=== PATIENT | female | born 1965 | race Caucasian/White ===

== ENCOUNTER 2016-08-29 20:51 | Emergency (ER) | payer MEDICARE, MEDICAID ==
[2016-08-29] MEDS ORDERED: Rocephin 1000 MG INJ IM ONE (20:59)
[2016-08-29] MEDS ORDERED: Phenergan 25 MG INJ IM ONE (21:00)
[2016-08-29] MEDS ORDERED: TORAdol 30 mg Injection IM ONE (21:00)
--- NOTE | 2016-08-29 21:05 | ERPHSYRPT ---
- History of Present Illness Time Seen by Provider: 08/29/16 20:54 Source: patient Exam Limitations: no limitations Physician History: PT STARTED WITH DIARRHEA 4 DAYS AGO FOR 3 DAYS ABOUT 3X/DAY WITHOUT BLOOD. FOR THE PAST 3 DAYS PT HAS HAD A FRONTAL HEADACHE; FOR THE PAST 2 DAYS A SUBJECTIVE FEVER, NAUSEA AND VOMITING X3 WITHOUT BLOOD; TODAY A SORE THROAT. Allergies/Adverse Reactions: No Known Drug Allergies Allergy (Verified 08/29/16 20:58) Home Medications: Hydrocodone/Acetaminophen [Hydrocodon-Acetaminoph 7.5-325] 1 each PO Q8HPRN PRN 05/16/13 [History] Albuterol Sulfate [Albuterol Sulfate Hfa] 8.5 gm IH TID 08/29/16 [History] Alprazolam 1 mg [Xanax 1 mg] 1 mg PO DAILY 08/29/16 [History] Beclomethasone Dipropionate [Qvar] 7.3 gm IH DAILY 08/29/16 [History] Loratadine [Claritin] 10 mg PO DAILY 08/29/16 [History] Montelukast Sodium [Singulair] 10 mg PO DAILY 08/29/16 [History] Hx Tetanus, Diphtheria Vaccination/Date Given: Yes (UP TO DATE) Hx Influenza Vaccination/Date Given: Yes (2012) Hx Pneumococcal Vaccination/Date Given: Yes (2012) - Review of Systems Constitutional: Fever Ears, Nose, & Throat: Throat Pain Cardiac: No Chest Pain Abdominal/Gastrointestinal: Nausea, Vomiting, Diarrhea Neurological: Headache All Other Systems: Reviewed and Negative - Past Medical History Pertinent Past Medical History: Yes Neurological History: No Pertinent History ENT History: No Pertinent History Cardiac History: Hypertension Respiratory History: Asthma, Bronchitis, COPD, Pneumonia Endocrine Medical History: No Pertinent History Musculoskeletal History: No Pertinent History GI Medical History: No Pertinent History History: No Pertinent History Psycho-Social History: Anxiety, Depression Female Reproductive Disorders: No Pertinent History Other Medical History: RT shoulder Bursitis. COPD. Smoker - Past Surgical History Past Surgical History: Yes Neuro Surgical History: No Pertinent History Cardiac: No Pertinent History Respiratory: No Pertinent History Gastrointestinal: No Pertinent History Genitourinary: No Pertinent History Musculoskeletal: No Pertinent History Female Surgical History: Tubal Ligation Other Surgical History: G-TUBE. CHEST TUBE. CARPAL TUNNEL - Social History Smoking Status: Former smoker How long have you smoked: 30 years Exposure to second hand smoke: No Alcohol Use: Socially Drug Use: none Patient Lives Alone: No Significant Family History: no pertinent family hx - Female History Hx Now: No - Physical Exam General Appearance: alert Eye Exam: PERRL/EOMI Ears, Nose, Throat Exam: TMs normal, moist mucous membranes, pharyngeal erythema , other (NASAL TURBINATES ERYTHEMATOUS AND MILDLY EDEMATOUS) Neck Exam: normal inspection Respiratory Exam: airway intact Cardiovascular Exam: normal heart sounds Gastrointestinal/Abdomen Exam: soft, normal bowel sounds Back Exam: normal range of motion Extremity Exam: No pedal edema Neurologic Exam: alert, cooperative Skin Exam: warm, dry - Course Nursing assessment & vital signs reviewed: Yes - Departure Time of Disposition: 21:12 Departure Disposition: Home Clinical Impression: PHARYNGITIS, SINUSITIS Condition: Fair Critical Care Time: No Instructions: Diarrhea and Traveler's Diarrhea -- Adult, Vomiting -- Adult, Sinusitis, Pharyngitis/Tonsillopharyngitis -- Adult Additional Instructions: FOLLOW UP WITH PRIVATE DOCTOR TOMORROW. Prescriptions: Promethazine HCl 25 mg [Phenergan 25 mg] 25 mg PO Q4H PRN PRN #14 tablet PRN Reason: Nausea/Vomiting Azithromycin 250 mg [Zithromax 250 MG TABLET] 250 mg PO ZPACK #6 tablet Cetirizine HCl [Zyrtec] 10 mg PO DAILY #10 tablet
[2016-08-29] MEDS ORDERED: Rocephin 1000 MG INJ ONE (21:06)
[2016-08-29] MEDS ORDERED: TORAdol 30 mg Injection ONE (21:06)
[2016-08-29] MEDS ORDERED: XYLOCAINE 1% HCL 20 ML MDV ONE (21:06)
[2016-08-29] MEDS ORDERED: Phenergan 25 MG INJ ONE (21:06)
[2016-08-29 21:37] VITALS: BP 122/70; PULSE 89; O2SAT 99
== END 2016-08-29 21:37 | disposition home or self-care (01) ==
LOC: ED 20:51
DX: J02.9 Acute pharyngitis, unspecified (principal); J32.9 Chronic sinusitis, unspecified; R19.7 Diarrhea, unspecified; R51 Headache; R50.9 Fever, unspecified; R11.2 Nausea with vomiting, unspecified; Z79.899 Other long term (current) drug therapy
CPT/HCPCS: 96372; 96375; 99284; J0696; J1885; J2550

== ENCOUNTER 2017-05-25 06:09 | Day surgery (SDC) | payer MEDICARE ==
[2017-05-25] MEDS ORDERED: VERSED 5 MG/5 ML IV ONE (06:10)
[2017-05-25] MEDS ORDERED: DEMEROL 50 MG IV ONE ×2 (06:10)
[2017-05-25] MEDS ORDERED: XYLOCAINE 1% HCL 20 ML MDV ONE ×2 (06:37→08:36)
[2017-05-25] MEDS ORDERED: Sodium Chloride 0.9% 1000 ML 1,000 ML ONE (06:38)
[2017-05-25] MEDS ORDERED: Sodium Chloride 0.9% 1000 ML 1,000 ML IV SCH (07:15)
[2017-05-25] MEDS ORDERED: CEFAZOLIN 2 GM-D5W BAG** 2 GM/50 ML ML IV SCH (08:00)
[2017-05-25] MEDS ORDERED: CEFAZOLIN 2 GM-D5W BAG** 50 ML IV SCH (08:00)
[2017-05-25 10:37] VITALS: O2SAT 100
--- NOTE | 2017-05-25 10:41 | XRAY ---
Indication: Port placement. Intraoperative fluoroscopy was provided for 3 seconds. A single digital spot image submitted for interpretation demonstrates a left-sided Port-A-Cath with the tip projecting over the proximal SVC. Correlate with intraoperative findings/report.
[2017-05-25 10:51] VITALS: BP 149/103; PULSE 92
--- NOTE | 2017-05-25 12:27 | OP ---
SURGERY DATE/TIME: 05/25/2017 0840 PREOPERATIVE DIAGNOSIS: Inadequate access for chemotherapy. POSTOPERATIVE DIAGNOSIS: Inadequate access for chemotherapy. PROCEDURE: Tunnel Port-A-Cath fluoroscopic C-arm guidance. SURGEON: Eleazar Barrett M.D. ANESTHESIA: IV sedation 20 minutes monitored. COMPLICATIONS: None. CONDITION: Stable. INDICATION: A patient requiring access. DESCRIPTION OF PROCEDURE: Routine prep and drape. IV sedation was titrated. Oximetry was kept over 90%. Comfort level was excellent. 1% lidocaine was advanced through the field. Venipuncture obtained. Guide wire placed. Catheter placed and secured at 21 cm. Good aspiration of low pressure venous blood. Flushed with heparinized saline. Secured with 3-0 Prolene, 3-0 Vicryl, 4-0 Vicryl and Steri-Strips. Fluoroscopic image showed tip in superior vena cava - atrial junction. No pneumothorax and in good position.
== END 2017-05-25 11:05 | disposition home or self-care (01) ==
LOC: SDC 06:09
PROVIDERS: ATTEND Surgery
PROC: 05H633Z Insertion of Infusion Device into Left Subclavian Vein, Percutaneous Approach (ICD-10-PCS; principal; 2017-05-25)
DX: Z45.2 Encounter for adjustment and management of vascular access device (principal)
CPT/HCPCS: 77001; 84703; C1788; J0690; J1642; J2175; J2250

== ENCOUNTER 2017-10-31 21:20 | Emergency (ER) | payer MEDICARE ==
[2017-10-31 21:57] VITALS: BP 151/96
--- NOTE | 2017-10-31 21:57 | ERPHSYRPT ---
- History of Present Illness Time Seen by Provider: 10/31/17 21:48 Source: patient Exam Limitations: no limitations Physician History: Patient is a 52-year-old female with her boyfriend complaining that she's had a cough and fever since yesterday. She also has shortness of breath. She is lightheaded when she moves around. She has chills. She believes she may have pneumonia again. She denies nausea or vomiting. She has an appointment with her primary medical doctor tomorrow but did not think she could last that long. Last June she had a port placed for likely chemotherapy for possible chest cancer. She had been worked up including chest CTs and a PET scan. She decided not to have a biopsy. She also states that she has a "tumor" in her right arm. Her past medical history is significant for COPD, pneumonia, and depression. She continues to smoke like a "freight train". Timing/Duration: yesterday Cough Quality/Degree: moderate, productive cough Possible Cause: occasional episodes, smoke exposure Modifying Factors: Improves With: coughing Associated Symptoms: fever, chills, cough, lightheadedness, shortness of breath Allergies/Adverse Reactions: No Known Drug Allergies Allergy (Verified 05/25/17 06:42) Home Medications: Albuterol Sulfate [Albuterol Sulfate Hfa] 8.5 gm IH TID 08/29/16 [History] Alprazolam 1 mg [Xanax 1 mg] 1 mg PO DAILY 08/29/16 [History] Loratadine [Claritin] 10 mg PO DAILY 08/29/16 [History] Montelukast Sodium [Singulair] 10 mg PO DAILY 08/29/16 [History] Albuterol Sulfate [Ventolin Hfa] 8 gm IH UD 05/16/17 [History] Oxycodone HCl/Acetaminophen [Percocet 10-325 mg Tablet] 1 each PO Q4HPRN PRN 05/21 [History] Theophylline Anhydrous [Theophylline] 0 mg PO DAILY 05/16/17 [History] Hx Tetanus, Diphtheria Vaccination/Date Given: Yes (UP TO DATE) Hx Influenza Vaccination/Date Given: Yes (2012) Hx Pneumococcal Vaccination/Date Given: Yes (2012) - Review of Systems Constitutional: Fever, Chills Eyes: No Symptoms Ears, Nose, & Throat: No Symptoms Respiratory: Cough, Dyspnea, Wheezing Cardiac: No Chest Pain, No Edema, No Syncope Abdominal/Gastrointestinal: No Abdominal Pain, No Nausea, No Vomiting, No Diarrhea Genitourinary Symptoms: No Dysuria Musculoskeletal: No Back Pain, No Neck Pain Skin: No Rash Neurological: No Dizziness, No Focal Weakness, No Sensory Changes Psychological: Depression Endocrine: No Symptoms Hematologic/Lymphatic: No Symptoms Immunological/Allergic: No Symptoms All Other Systems: Reviewed and Negative - Past Medical History Pertinent Past Medical History: Yes Neurological History: No Pertinent History ENT History: No Pertinent History Cardiac History: Hypertension Respiratory History: Asthma, Bronchitis, COPD, Emphysema, Pneumonia Endocrine Medical History: No Pertinent History Musculoskeletal History: No Pertinent History, Other GI Medical History: No Pertinent History History: No Pertinent History Psycho-Social History: Anxiety, Depression Female Reproductive Disorders: No Pertinent History Other Medical History: RT shoulder Bursitis- torn rotator cuff and bone tumor. COPD. Smoker. bone tumor - Past Surgical History Past Surgical History: Yes Neuro Surgical History: No Pertinent History Cardiac: No Pertinent History Respiratory: No Pertinent History Gastrointestinal: No Pertinent History Genitourinary: No Pertinent History Musculoskeletal: No Pertinent History Female Surgical History: Tubal Ligation Other Surgical History: G-TUBE. CHEST TUBE x2. CARPAL TUNNEL - Social History Smoking Status: Current every day smoker How long have you smoked: 30 years Exposure to second hand smoke: No Alcohol Use: Socially Drug Use: none Patient Lives Alone: No Significant Family History: no pertinent family hx - Nursing Vital Signs Nursing Vital Signs: Initial Vital Signs Temperature 100.3 F 10/31/17 21:44 Pulse Rate 96 H 10/31/17 21:44 Respiratory Rate 18 10/31/17 21:44 Blood Pressure 151/96 10/31/17 21:44 O2 Sat by Pulse Oximetry 95 10/31/17 21:44 Pain Scale Pain Intensity 5 - Physical Exam General Appearance: mild distress Eye Exam: PERRL/EOMI, eyes nml inspection Ears, Nose, Throat Exam: normal ENT inspection, TMs normal, pharynx normal, moist mucous membranes Neck Exam: normal inspection, non-tender, supple, full range of motion Respiratory Exam: prolonged expirations, rhonchi, wheezing Cardiovascular Exam: regular rate/rhythm, normal heart sounds Gastrointestinal/Abdomen Exam: soft, No tenderness Pelvic Exam: not done Rectal Exam: not done Back Exam: normal inspection, No CVA tenderness, No vertebral tenderness Extremity Exam: normal inspection, normal range of motion Neurologic Exam: alert, oriented x 3, cooperative, normal mood/affect, sensation nml, No motor deficits Skin Exam: normal color, warm, dry, No rash Lymphatic Exam: No adenopathy SpO2 Interpretation: normal - Course EKG Interpreted by Me: RATE, Sinus Rhythm, NORMAL AXIS, NORMAL INTERVALS, NORMAL QRS, NORMAL ST-T - Radiology Exams Chest X-ray Interpretation: Reviewed by me, Teleradiologist Report, Other (3.7 X 1.9 cm mass in [place] with multiple small densities in both lungs consistent with probable metastatic disease per Dr Madden.) Ordered Tests: Active Orders 24 hr Category Date Time Status Publications Inspector STAT Care 10/31/17 22:02 Active IV Insertion STAT Care 10/31/17 22:02 Active Oxygen-ED Only NASAL CANNULA 2 lpm Care 10/31/17 22:02 Active CHEST 2 VIEWS (PA AND LAT) Stat Exams 10/31/17 22:02 Taken BLOOD CULTURE Stat Lab 10/31/17 23:30 Received CBC W DIFF Stat Lab 10/31/17 23:00 Completed CMP Stat Lab 10/31/17 23:30 Completed Lactic Acid Stat Lab 10/31/17 23:29 Completed Manual Differential NC Stat Lab 10/31/17 23:00 Completed NT PRO BNP Stat Lab 10/31/17 23:30 Completed TROPONIN Q3H Lab 10/31/17 23:30 Completed TROPONIN Q3H Lab 11/01/17 01:15 Ordered TROPONIN Q3H Lab 11/01/17 04:15 Ordered TROPONIN Q3H Lab 11/01/17 07:15 Ordered TROPONIN Q3H Lab 11/01/17 10:15 Ordered Respiratory Nebulizer STAT RT 10/31/17 22:03 Completed Medication Summary Discontinued Medications Generic Name Dose Route Start Last Admin Trade Name Freq PRN Reason Stop Dose Admin Acetaminophen 1,000 mg 11/01/17 00:39 Tylenol Extra Strength 500 Mg PO 11/01/17 00:40 STAT STA Acetaminophen Confirm 11/01/17 00:55 Tylenol Extra Strength 500 Mg Administered 11/01/17 00:56 Dose 1,000 mg .ROUTE .STK-MED ONE Al Hydrox/Mg Hydrox/Simethicone 30 ml 11/01/17 00:14 11/01/17 00:27 Maalox Es 30 Ml Unit Dose PO 11/01/17 00:15 30 ml STAT ONE Administration Al Hydrox/Mg Hydrox/Simethicone Confirm 11/01/17 00:17 Maalox Es 30 Ml Unit Dose Administered 11/01/17 00:18 Dose 30 ml .ROUTE .STK-MED ONE Albuterol/Ipratropium 3 ml 10/31/17 22:02 10/31/17 22:15 Duoneb 0.5-3 Mg/3 Ml Neb IH 10/31/17 22:03 3 ml STAT ONE Administration Albuterol/Ipratropium Confirm 10/31/17 22:11 Duoneb 0.5-3 Mg/3 Ml Neb Administered 10/31/17 22:12 Dose 3 ml IH .STK-MED ONE Ceftriaxone Sodium/Dextrose 1 g in 50 mls @ 100 mls/hr 11/01/17 00:39 Rocephin 1 Gm-D5w 50 Ml Bag IV 11/01/17 01:08 STAT STA Ceftriaxone Sodium/Dextrose Confirm 11/01/17 00:56 Rocephin 1 Gm-D5w 50 Ml Bag Administered 11/01/17 00:57 Dose 1 g in 50 mls @ ud IV .STK-MED ONE Methylprednisolone Sodium Succinate 125 mg 10/31/17 22:02 10/31/17 23:12 Solu-Medrol 125 Mg IV 10/31/17 22:03 125 mg STAT ONE Administration Methylprednisolone Sodium Succinate Confirm 10/31/17 22:09 Solu-Medrol 125 Mg Administered 10/31/17 22:10 Dose 125 mg .ROUTE .STK-MED ONE Lab/Rad Data: Laboratory Result Diagrams 10/31/17 23:00 10/31/17 23:30 Laboratory Results 10/31/17 10/31/17 10/31/17 Range/Units 23:30 23:30 23:30 WBC (4.0-10.5) K/mm3 RBC (4.1-5.4) M/mm3 Hgb (12.0-16.0) gm/dl Hct (35-47) % MCV (78-100) fl MCH (26-32) pg MCHC (32-36) g/dl RDW (11.5-14.0) % Plt Count (150-450) K/mm3 MPV (6-9.5) fl Absolute Granulocytes (1.4-6.9) Segmented Neutrophils (36.0-66.0) % Band Neutrophils (0.0-2.0) % Lymphocytes (Manual) (24-44) % Monocytes (Manual) (0.0-12.0) % Basophils (Manual) (0.0-1.0) % Platelet Estimate (NORMAL) RBC Morphology Sodium 132 L (137-145) mmol/L Potassium 4.0 (3.5-5.1) mmol/L Chloride 101 (98-107) mmol/L Carbon Dioxide 25 (22-30) mmol/L Anion Gap 9.6 (5-15) MEQ/L BUN 11 (7-17) mg/dL Creatinine 0.86 (0.52-1.04) mg/dL Estimated GFR > 60.0 ML/MIN Glucose 101 (74-106) mg/dL Lactic Acid (0.4-2.0) Calcium 8.5 (8.4-10.2) mg/dL Total Bilirubin 0.30 (0.2-1.3) mg/dL AST 35 (14-36) U/L ALT 17 (0-35) U/L Alkaline Phosphatase 97 (38-126) U/L Troponin I 0.038 H* (0.000-0.034) ng/mL NT-Pro-B Natriuret Pep 1510 H (0-900) pg/mL Serum Total Protein 6.3 (6.3-8.2) g/dL Albumin 3.5 (3.5-5.0) g/dL Influenza Type A Ag NEGATIVE (NEGATIVE) Influenza Type B Ag NEGATIVE (NEGATIVE) RSV (PCR) NEGATIVE (Negative) 10/31/17 10/31/17 Range/Units 23:29 23:00 WBC 2.3 L (4.0-10.5) K/mm3 RBC 4.29 (4.1-5.4) M/mm3 Hgb 13.0 (12.0-16.0) gm/dl Hct 38.2 (35-47) % MCV 89.0 (78-100) fl MCH 30.3 (26-32) pg MCHC 34.0 (32-36) g/dl RDW 13.7 (11.5-14.0) % Plt Count 91 L (150-450) K/mm3 MPV 10.4 H (6-9.5) fl Absolute Granulocytes 1.51 (1.4-6.9) Segmented Neutrophils 62 (36.0-66.0) % Band Neutrophils 10 H (0.0-2.0) % Lymphocytes (Manual) 22 L (24-44) % Monocytes (Manual) 4 (0.0-12.0) % Basophils (Manual) 2 H (0.0-1.0) % Platelet Estimate DECREASED (NORMAL) RBC Morphology NORMAL Sodium (137-145) mmol/L Potassium (3.5-5.1) mmol/L Chloride (98-107) mmol/L Carbon Dioxide (22-30) mmol/L Anion Gap (5-15) MEQ/L BUN (7-17) mg/dL Creatinine (0.52-1.04) mg/dL Estimated GFR ML/MIN Glucose (74-106) mg/dL Lactic Acid 1.0 (0.4-2.0) Calcium (8.4-10.2) mg/dL Total Bilirubin (0.2-1.3) mg/dL AST (14-36) U/L ALT (0-35) U/L Alkaline Phosphatase (38-126) U/L Troponin I (0.000-0.034) ng/mL NT-Pro-B Natriuret Pep (0-900) pg/mL Serum Total Protein (6.3-8.2) g/dL Albumin (3.5-5.0) g/dL Influenza Type A Ag (NEGATIVE) Influenza Type B Ag (NEGATIVE) RSV (PCR) (Negative) - Progress Progress: unchanged Air Movement: fair Progress Note: 11/01/17 01:10 I discussed the patient with Dr. Lynn at [facility] who did accept the patient. However, the patient has now changed her mind and will not be transferred. She does not want to know if she has lung cancer. She states she wants to go home and not worry about things. I very clearly stated why she needed to go to [facility] and find out the diagnosis. I am unable to provide the appropriate care at [place]. The patient will be leaving [place]. Blood Culture(s) Obtained: Yes Antibiotics given: No Counseled pt/family regarding: lab results, diagnosis, need for follow-up, rad results - Departure Time of Disposition: 00:45 Departure Disposition: AMA Clinical Impression: Neutropenic fever, Lung mass, Metastasis Condition: Stable Critical Care Time: No Referrals: SUSANA CUEVAS [Primary Care Provider] -
[2017-10-31] MEDS ORDERED: DUONEB 0.5-3 MG/3 ml Neb IH ONE ×2 (22:02→22:11)
[2017-10-31] MEDS ORDERED: solu-MEDROL 125 MG IV ONE (22:02)
[2017-10-31] MEDS ORDERED: solu-MEDROL 125 MG ONE (22:09)
[2017-10-31 22:23] VITALS: PULSE 106; O2SAT 97
[2017-10-31 23:16] LABS: Granulocyte Absolute (ANC) 1.51 (1.4-6.9); Hematocrit 38.2 % (35-47); Mean Corpuscular Hemoglobin 30.3 pg (26-32); Mean Platelet Volume 10.4 fl (6-9.5); Platelet Count 91 K/mm3 (150-450); Red Blood Count 4.29 M/mm3 (4.1-5.4); Red Cell Distribution Width 13.7 % (11.5-14.0); White Blood Count 2.3 K/mm3 (4.0-10.5)
[2017-10-31 23:42] LABS: ALBUMIN 3.5 g/dL (3.5-5.0); ALKALINE PHOSPHATASE 97 U/L (38-126); ANION GAP 9.6 MEQ/L (5-15); BLOOD UREA NITROGEN 11 mg/dL (7-17); CHLORIDE 101 mmol/L (98-107); Calcium 8.5 mg/dL (8.4-10.2); Carbon Dioxide 25 mmol/L (22-30); Creatinine 1 0.86 mg/dL (0.52-1.04); Glucose 101 mg/dL (74-106); SGOT/AST 35 U/L (14-36); SGPT/ALT 17 U/L (0-35); SODIUM 132 mmol/L (137-145); Total Protein 6.3 g/dL (6.3-8.2)
[2017-10-31 23:51] LABS: NT PRO BNP 1510 pg/mL (0-900)
[2017-11-01 00:07] LABS: INFLUENZA A NEGATIVE (NEGATIVE); INFLUENZA B NEGATIVE (NEGATIVE); RESPIRATORY SYNCTIAL VIRUS NEGATIVE (Negative)
[2017-11-01] MEDS ORDERED: MAALOX ES 30 ML UNIT DOSE PO ONE (00:14)
[2017-11-01] MEDS ORDERED: MAALOX ES 30 ML UNIT DOSE ONE (00:17)
[2017-11-01] MEDS ORDERED: TYLENOL EXTRA STRENGTH 500 MG PO STA (00:39)
[2017-11-01] MEDS ORDERED: ROCEPHIN 1 Gm-D5w 50 ml Bag** 1 G/50 ML IVPB IV STA (00:39)
[2017-11-01] MEDS ORDERED: TYLENOL EXTRA STRENGTH 500 MG ONE (00:55)
[2017-11-01] MEDS ORDERED: ROCEPHIN 1 Gm-D5w 50 ml Bag** 0 G/0 ML IVPB IV ONE (00:56)
[2017-11-01 00:57] LABS: BAND 10 % (0.0-2.0); Basophil 2 % (0.0-1.0); Lymphocytes 22 % (24-44); Monocyte 4 % (0.0-12.0); Neutrophils 62 % (36.0-66.0); Platelet Estimate DECREASED (NORMAL); Total Cells Counted 100
--- NOTE | 2017-11-01 10:17 | XRAY ---
Exam: Two-view chest from 10/31/2017. Comparison: CT of the chest without IV contrast from 04/11/2017 and two-view chest from 12/04/2013. Indication: 52-year-old female with cancer of the lung, COPD/emphysema, cough and dyspnea/shortness of breath with wheezing, fever Findings: Upright PA and lateral chest films are submitted for evaluation. A left-sided deondre catheter is seen with the tip extending to the mid SVC pointing inferiorly, posteriorly, and toward the right. The heart size is normal. I again see a mass within the peripheral left lung apex measuring about 4.1 cm x 2.8 cm in cross section. This is similar to the prior CT of the chest 04/11/2017. One should consider a lung malignancy such as squamous cell carcinoma, as well as abscess, fungal disease, or TB. Evidently, the diagnosis of malignancy has already been established. Within the right lung apex, I again see a small density projected behind the clavicle which probably represents a small cavitary lesion or bulla. This was noted to contain a small soft tissue density within it on axial image #12 study from 04/11/2017. I again see some scattered bilateral ill-defined lung densities. Is not clear to me whether this represents areas of focal scarring or metastatic lesions. Correlation with a follow-up CT of the chest may be helpful to compare with that from 04/11/2017. There is evidence of COPD/emphysema. Minimal curvilinear scarring/fibrosis is seen lateral to the right infrahilar projection. I believe there is a small calcified granuloma at the left lung base which is also seen on axial image #[address] study of 04/11/2017. The bones appear grossly intact without obvious fracture or bone destructive process. Findings: 1. Persistence of left apical soft tissue mass which presumably has been diagnosed as lung cancer in the past. I also note a small density projected behind the right clavicle within the right lung apex which was demonstrated represent a small cavity with a 6.3 mm round radiopacity within it on the prior CT from 04/11/2017. 2. There is some other ill-defined patchy densities within each lung which may reflect areas of focal scarring, although subtle metastases cannot be excluded. Consider follow-up with repeat CT of the chest. 3. COPD/emphysema is again seen. 4. Left-sided deondre catheter is now seen in place with the tip in the mid SVC.
== END 2017-11-01 01:28 | disposition left against medical advice (07) ==
LOC: ED 21:20
DX: D70.9 Neutropenia, unspecified (principal); R50.81 Fever presenting with conditions classified elsewhere; R91.8 Other nonspecific abnormal finding of lung field; C79.9 Secondary malignant neoplasm of unspecified site; Z79.899 Other long term (current) drug therapy; F17.210 Nicotine dependence, cigarettes, uncomplicated
CPT/HCPCS: 36000; 36415; 71046; 80053; 83605; 83880; 84484; 85025; 87040; 87077; 87186; 87631; 93005; 93041; 94640; 96374; 99284; J0696; J1642; J2930; A9270-GY

== ENCOUNTER 2019-03-23 02:03 | Emergency (ER) | payer MEDICARE ==
--- NOTE | 2019-03-23 02:47 | ERPHSYRPT ---
- History of Present Illness Time Seen by Provider: 03/23/19 02:47 Source: patient Exam Limitations: no limitations Patient Subjective Stated Complaint: pt c/o fever today, rt ankle swelling due to bite and hernia popping out and unable to get it back in. Triage Nursing Assessment: pt brought to er rm 8 via wheelchair, pt alert and oriented x3, cooperative. Pt c/o fever x 24 hours, afebrile at this time. Rt foot edematous, puffy, non-pitting. Ice pack applied. Pt has hernia that pops out and pt unable to get back in at this time. Lungs exp wheezes throughout. Heart tones reg but tachy, abd soft with active bs x4 quad, non-tender. Physician History: 52-year-old female with significant past medical history of COPD came to the emergency room with multiple complaints which include redness and pain and swelling on her both hands and right leg as well as complaining of swelling around the periumbilical area, which she states that she has an umbilical hernia and which cannot be fixed because of her poor lung conditions. Patient states that she might got bit by something while she was mushroom hunting. She was complaining of fever, but in the emergency room. She is afebrile. She denies any other symptoms. Timing/Duration: today Associated Symptoms: abdominal pain International travel in last 2 weeks: No Allergies/Adverse Reactions: No Known Drug Allergies Allergy (Verified 07/13/18 15:10) Home Medications: Albuterol Sulfate [Albuterol Sulfate Hfa] 8.5 gm IH TID 08/29/16 [History] Alprazolam 1 mg [Xanax 1 mg] 1 mg PO DAILY 08/29/16 [History] Montelukast Sodium [Singulair] 10 mg PO DAILY 08/29/16 [History] Albuterol Sulfate [Ventolin Hfa] 8 gm IH UD 05/16/17 [History] Oxycodone HCl/Acetaminophen [Percocet 10-325 mg Tablet] 1 each PO Q4HPRN PRN 05/21 [History] Theophylline Anhydrous [Theophylline] 400 mg PO DAILY 05/16/17 [History] Omeprazole Magnesium [Prilosec Otc] 40 mg PO BID 03/23/19 [History] Hx Tetanus, Diphtheria Vaccination/Date Given: Yes Hx Influenza Vaccination/Date Given: No Hx Pneumococcal Vaccination/Date Given: Yes Immunizations Up to Date: Yes - Review of Systems Constitutional: Fever Eyes: No Symptoms Ears, Nose, & Throat: No Symptoms Respiratory: No Symptoms Cardiac: No Symptoms Abdominal/Gastrointestinal: Abdominal Pain Genitourinary Symptoms: No Symptoms Musculoskeletal: Joint Redness Skin: Cellulitis Neurological: No Symptoms Psychological: No Symptoms - Past Medical History Pertinent Past Medical History: Yes Neurological History: No Pertinent History ENT History: No Pertinent History Cardiac History: Hypertension Respiratory History: Asthma, Bronchitis, COPD, Emphysema, Pneumonia Endocrine Medical History: No Pertinent History Musculoskeletal History: No Pertinent History, Other GI Medical History: GERD History: No Pertinent History Psycho-Social History: Depression Female Reproductive Disorders: No Pertinent History Other Medical History: RT shoulder Bursitis- torn rotator cuff and bone tumor. COPD. Smoker. bone tumor - Past Surgical History Past Surgical History: Yes Neuro Surgical History: No Pertinent History Cardiac: No Pertinent History Respiratory: No Pertinent History Gastrointestinal: No Pertinent History Genitourinary: No Pertinent History Musculoskeletal: No Pertinent History Female Surgical History: Tubal Ligation Other Surgical History: G-TUBE. CHEST TUBE x2. CARPAL TUNNEL. cvl port poor iv access. tracheostomy - Social History Smoking Status: Current every day smoker How long have you smoked: 35 Exposure to second hand smoke: Yes Alcohol Use: Socially Drug Use: none Patient Lives Alone: No Significant Family History: no pertinent family hx - Female History Hx Now: No - Nursing Vital Signs Nursing Vital Signs: Initial Vital Signs Temperature 98.7 F 03/23/19 02:29 Pulse Rate 125 H 03/23/19 02:29 Respiratory Rate 32 H 03/23/19 02:29 Blood Pressure 157/117 03/23/19 02:29 O2 Sat by Pulse Oximetry 100 03/23/19 02:29 Pain Scale Pain Intensity 10 - Physical Exam General Appearance: no apparent distress Eye Exam: PERRL/EOMI, eyes nml inspection, pale conjunctivae ENT Exam: normal ENT inspection Neck Exam: normal inspection Respiratory Exam: decreased air movement Cardiovascular/Chest Exam: normal heart sounds Gastrointestinal/Abdominal Exam: soft, tenderness (around periumbilical area) Pelvic Exam: not done Rectal Exam: deferred Extremity Exam: no calf tenderness, inflammation, pedal edema (right foot), swelling, No calf tenderness Neurologic Exam: alert, oriented x 3 SpO2: 100 - Course Nursing assessment & vital signs reviewed: Yes Ordered Tests: Active Orders 24 hr Category Date Time Status BLOOD CULTURE Stat Lab 03/23/19 03:41 Ordered CBC W DIFF Stat Lab 03/23/19 03:41 Completed CMP Stat Lab 03/23/19 03:41 Completed Lactic Acid Stat Lab 03/23/19 03:20 Results UA W/RFX UR CULTURE Stat Lab 03/23/19 03:50 Completed Medication Summary Generic Name Dose Route Start Last Admin Trade Name Freq PRN Reason Stop Dose Admin Ceftriaxone Sodium/Dextrose 1 g in 50 mls @ 100 mls/hr 03/23/19 04:07 Rocephin 1 Gm-D5w 50 Ml Bag IV 03/23/19 04:36 STAT STA Discontinued Medications Generic Name Dose Route Start Last Admin Trade Name Freq PRN Reason Stop Dose Admin Sodium Chloride 1,000 mls @ 999 mls/hr 03/23/19 02:54 Sodium Chloride 0.9% 1000 Ml IV 03/23/19 03:54 .Q1H1M STA Sodium Chloride Confirm 03/23/19 04:02 Sodium Chloride 0.9% 1000 Ml Administered 03/23/19 04:03 Dose 1,000 mls @ ud .ROUTE .STK-MED ONE Lab/Rad Data: Laboratory Result Diagrams 03/23/19 03:41 03/23/19 03:41 Laboratory Results 03/23/19 03/23/19 03/23/19 Range/Units 03:50 03:41 03:41 WBC 23.3 H (4.0-10.5) K/mm3 RBC 4.61 (4.1-5.4) M/mm3 Hgb 13.7 (12.0-16.0) gm/dl Hct 42.6 (35-47) % MCV 92.4 (78-100) fl MCH 29.7 (26-32) pg MCHC 32.2 (32-36) g/dl RDW 15.3 H (11.5-14.0) % Plt Count 324 (150-450) K/mm3 MPV 10.6 H (6-9.5) fl Gran % 75.8 H (36.0-66.0) % Eos # (Auto) 0.19 (0-0.5) Absolute Lymphs (auto) 3.79 (1.0-4.6) Absolute Monos (auto) 1.60 H (0.0-1.3) Lymphocytes % 16.3 L (24.0-44.0) % Monocytes % 6.9 (0.0-12.0) % Eosinophils % 0.8 (0.00-5.0) % Basophils % 0.2 (0.0-0.4) % Absolute Granulocytes 17.69 H (1.4-6.9) Basophils # 0.04 (0-0.4) Sodium 135 L (137-145) mmol/L Potassium 4.2 (3.5-5.1) mmol/L Chloride 101 (98-107) mmol/L Carbon Dioxide 26 (22-30) mmol/L Anion Gap 12.5 (5-15) MEQ/L BUN 15 (7-17) mg/dL Creatinine 1.01 (0.52-1.04) mg/dL Estimated GFR > 60.0 ML/MIN Glucose 109 H (74-106) mg/dL Lactic Acid (0.4-2.0) Calcium 8.7 (8.4-10.2) mg/dL Total Bilirubin 0.20 (0.2-1.3) mg/dL AST 36 (14-36) U/L ALT 74 H (0-35) U/L Alkaline Phosphatase 82 (38-126) U/L Serum Total Protein 5.8 L (6.3-8.2) g/dL Albumin 3.3 L (3.5-5.0) g/dL Urine Color COLORLESS (YELLOW) Urine Appearance CLEAR (CLEAR) Urine pH 9.0 (5-6) Ur Specific [place] 1.000 (1.005-1.025) Urine Protein NEGATIVE (Negative) Urine Ketones NEGATIVE (NEGATIVE) Urine Blood NEGATIVE (0-5) Bin/ul Urine Nitrite NEGATIVE (NEGATIVE) Urine Bilirubin NEGATIVE (NEGATIVE) Urine Urobilinogen NEGATIVE (0-1) mg/dL Ur Leukocyte Esterase NEGATIVE (NEGATIVE) Urine WBC (Auto) NONE SEEN (0-5) /HPF Urine RBC (Auto) NONE SEEN (0-2) /HPF U Epithel Cells (Auto) NONE (FEW) /HPF Urine Bacteria (Auto) NONE SEEN (NEGATIVE) /HPF Urine Culture Reflexed NO (NO) Urine Glucose NEGATIVE (NEGATIVE) mg/dL 03/23/19 Range/Units 03:20 WBC (4.0-10.5) K/mm3 RBC (4.1-5.4) M/mm3 Hgb (12.0-16.0) gm/dl Hct (35-47) % MCV (78-100) fl MCH (26-32) pg MCHC (32-36) g/dl RDW (11.5-14.0) % Plt Count (150-450) K/mm3 MPV (6-9.5) fl Gran % (36.0-66.0) % Eos # (Auto) (0-0.5) Absolute Lymphs (auto) (1.0-4.6) Absolute Monos (auto) (0.0-1.3) Lymphocytes % (24.0-44.0) % Monocytes % (0.0-12.0) % Eosinophils % (0.00-5.0) % Basophils % (0.0-0.4) % Absolute Granulocytes (1.4-6.9) Basophils # (0-0.4) Sodium (137-145) mmol/L Potassium (3.5-5.1) mmol/L Chloride (98-107) mmol/L Carbon Dioxide (22-30) mmol/L Anion Gap (5-15) MEQ/L BUN (7-17) mg/dL Creatinine (0.52-1.04) mg/dL Estimated GFR ML/MIN Glucose (74-106) mg/dL Lactic Acid 2.0 (0.4-2.0) Calcium (8.4-10.2) mg/dL Total Bilirubin (0.2-1.3) mg/dL AST (14-36) U/L ALT (0-35) U/L Alkaline Phosphatase (38-126) U/L Serum Total Protein (6.3-8.2) g/dL Albumin (3.5-5.0) g/dL Urine Color (YELLOW) Urine Appearance (CLEAR) Urine pH (5-6) Ur Specific [place] (1.005-1.025) Urine Protein (Negative) Urine Ketones (NEGATIVE) Urine Blood (0-5) Bin/ul Urine Nitrite (NEGATIVE) Urine Bilirubin (NEGATIVE) Urine Urobilinogen (0-1) mg/dL Ur Leukocyte Esterase (NEGATIVE) Urine WBC (Auto) (0-5) /HPF Urine RBC (Auto) (0-2) /HPF U Epithel Cells (Auto) (FEW) /HPF Urine Bacteria (Auto) (NEGATIVE) /HPF Urine Culture Reflexed (NO) Urine Glucose (NEGATIVE) mg/dL - Progress Progress: improved Counseled pt/family regarding: lab results, diagnosis, need for follow-up - Departure Departure Disposition: Home Clinical Impression: Cellulitis and abscess of foot Leukocytosis (leucocytosis) Qualifiers: Leukocytosis type: other Qualified Code(s): D72.828 - Other elevated white blood cell count Condition: Stable Critical Care Time: No Referrals: SUSANA CUEVAS [Primary Care Provider] - Instructions: Cellulitis and Erysipelas (Skin Infections), Cellulitis (Skin Infection), Adult (DC) Additional Instructions: Discharge/Care Plan SEBASTIAN ARMENDARIZ was seen on 03/23/19 in the Emergency Room. The patient was counseled regarding Diagnosis,Lab results, Imaging studies, need for follow up and when to return to the Emergency Room. Prescriptions given: Discharge Note I have spoken with the patient and/or caregivers. I have explained the patient' s condition, diagnosis and treatment plan based on the information available to me at this time. I have answered the patient's and/or caregiver's questions and addressed any concerns. The patient and/or caregivers have as good understanding of the patient's diagnosis, condition and treatment plan as can be expected at this point. The vital signs have been stable. The patient's condition is stable and appropriate for discharge from the emergency department. The patient will pursue further outpatient evaluation with the primary care physician or other designated or consulting physician as outlined in the discharge instructions. The patient and/or caregivers are agreeable to this plan of care and follow-up instructions have been explained in detail. The patient and/or caregivers have received these instruction. The patient/and or caregivers are aware that any significant change in condition or worsening of symptoms should prompt an immediate return to this or the closest emergency department or call 911. SEBASTIAN ARMENDARIZ was seen on 03/23/19 n the Emergency Room. At that time you were treated for an emergent condition, during your visit Laboratory, Radiology and/or other procedures may have been ordered. It is very important that you follow-up with your Primary Care Physician SUSANA CUEVAS within the next 24-48 hours to review your Emergency Room visit and the final results of testing that was ordered. Some test results such as Urine Cultures, Blood Cultures, and other cultures if ordered will not be finalized for 24-48 hours. If you do not have a Primary Care Provider please call the medical records department at [phone] ext [phone] to obtain a copy of your results or you may sign into our patient portal to obtain these results by visiting us @ [email or web address] and completing the following steps: 1. Click on the Patient Portal link 2. Click the Patient Self Enrollment Link to complete the enrollment form and entering your 3. Once the enrollment form is completed you will receive an email with a temporary ID and password at the email address you provided. 4. Next choose a user name and password. Your user name must be at least 4 characters long and your password must be at least 4 characters long. 5. Choose a security question from the list and provide your answer to the question. If you already have signed into the Health Portal you may access your Health Care Information 26/12 by the following steps: 1. Login to our website @ [email or web address] 2. Enter your original user name and password. FAQS [facility] Health Portal is an online tool that contains your Lab Results, Radiology Reports, Visit History, Discharge Instructions and Health Summary Lab and Radiology Results will not be available for 72 hours on the portal. The Portal is a secure site, passwords are encryted and URLs are re-written so they cannot be copied and pasted. You and authorized family members are the only ones who can access your Portal. Also there is a timeout feature that protects your information if you leave the Portal page open. If you have technical difficulty please use the Contact Us link on the page this will allow you to submit any questions you have regarding the Portal or you may contact the Medical Record Department at [phone] ext [phone]. Prescriptions: Cephalexin Mh 500 mg [Keflex 500 mg] 500 mg PO Q6H #40 capsule
[2019-03-23] MEDS ORDERED: Sodium Chloride 0.9% 1000 ML 1,000 ML IV STA (02:54)
[2019-03-23 03:45] LABS: Absolute Neutrophil Ct (ANC) 17.69 (1.4-6.9); BASOPHIL % 0.2 % (0.0-0.4); Basophil (Absolute #) 0.04 (0-0.4); Eosinophil % 0.8 % (0.00-5.0); Eosinophil (Absolute #) 0.19 (0-0.5); Hematocrit 42.6 % (35-47); Hemoglobin 13.7 gm/dl (12.0-16.0); Lymphocyte (Absolute #) 3.79 (1.0-4.6); Lymphocytes % 16.3 % (24.0-44.0); Mean Cell Volume 92.4 fl (78-100); Mean Corpuscular Hemoglobin 29.7 pg (26-32); Mean Corpuscular Hgb Concent. 32.2 g/dl (32-36); Mean Platelet Volume 10.6 fl (6-9.5); Monocytes % 6.9 % (0.0-12.0); Neutrophil % 75.8 % (36.0-66.0); Platelet Count 324 K/mm3 (150-450); Red Blood Count 4.61 M/mm3 (4.1-5.4); Red Cell Distribution Width 15.3 % (11.5-14.0); White Blood Count 23.3 K/mm3 (4.0-10.5)
[2019-03-23 03:56] LABS: ALBUMIN 3.3 g/dL (3.5-5.0); ALKALINE PHOSPHATASE 82 U/L (38-126); ANION GAP 12.5 MEQ/L (5-15); BLOOD UREA NITROGEN 15 mg/dL (7-17); CHLORIDE 101 mmol/L (98-107); Calcium 8.7 mg/dL (8.4-10.2); Carbon Dioxide 26 mmol/L (22-30); Creatinine 1 1.01 mg/dL (0.52-1.04); Glucose 109 mg/dL (74-106); Potassium 4.2 mmol/L (3.5-5.1); SGOT/AST 36 U/L (14-36); SGPT/ALT 74 U/L (0-35); SODIUM 135 mmol/L (137-145); Total Protein 5.8 g/dL (6.3-8.2)
[2019-03-23 03:57] LABS: Appearance CLEAR (CLEAR); Bilirubin NEGATIVE (NEGATIVE); Blood NEGATIVE Ery/ul (0-5); Glucose NEGATIVE (NEGATIVE); Ketones NEGATIVE (NEGATIVE); Leukocyte Esterase NEGATIVE (NEGATIVE); Nitrite NEGATIVE (NEGATIVE); Protein,Urine Dip NEGATIVE (Negative); Urobilinogen NEGATIVE mg/dL (0-1)
[2019-03-23 03:58] LABS: Bacteria NONE SEEN /HPF (NEGATIVE); RBC NONE SEEN /HPF (0-2); WBC NONE SEEN /HPF (0-5)
[2019-03-23] MEDS ORDERED: Sodium Chloride 0.9% 1000 ML 1,000 ML ONE (04:02)
[2019-03-23] MEDS ORDERED: ROCEPHIN 1 Gm-D5w 50 ml Bag** 1 G/50 ML IVPB IV STA (04:07)
[2019-03-23] MEDS ORDERED: ROCEPHIN 1 Gm-D5w 50 ml Bag** 1 G/50 ML IVPB IV ONE (04:35)
[2019-03-23] MEDS ORDERED: DUONEB 0.5-3 MG/3 ml Neb IH ONE ×2 (04:46→04:50)
[2019-03-23 05:28] VITALS: BP 153/111; PULSE 124; O2SAT 100
[2019-03-23] MEDS ORDERED: Toprol-Xl 25MG Tablets ONE (05:30)
[2019-03-23] MEDS ORDERED: Toprol Xl 50 MG PO SCH (05:33)
== END 2019-03-23 06:00 | disposition home or self-care (01) ==
LOC: ED 02:03
DX: L03.115 Cellulitis of right lower limb (principal); L02.611 Cutaneous abscess of right foot; D72.828 Other elevated white blood cell count
CPT/HCPCS: 36415; 80053; 81001; 83605; 85025; 87040; 94150; 94640; 99284; J0696; J1642; A9270-GY

== ENCOUNTER 2019-04-02 11:17 | Emergency (ER) | payer MEDICARE ==
--- NOTE | 2019-04-02 11:26 | ERPHSYRPT ---
- History of Present Illness Time Seen by Provider: 04/02/19 11:26 Source: patient Exam Limitations: no limitations Physician History: 53 y/o white female with chronic intermittent fever and genralized aches and pains, h/o chronic leukocytosis, copd, htn. pt states she has an appt to see her pcp, dr. carlton, on 04/04/19. pt seen in this ED on 03/23/19 for same complaint. pt has a chronically elevated wbc but is on steroids daily. pt has h/ o tachycardia and htn on metoprolol. pt denies cp today but friend notes cp yesterday Timing/Duration: intermittent, other (chronic) Fever Severity: gone Fever Therapy [employer]: none Associated Symptoms: nausea/vomiting, weakness (generalized along with generalized aches and pain.) International travel in last 2 weeks: No Allergies/Adverse Reactions: No Known Drug Allergies Allergy (Verified 04/02/19 11:21) Home Medications: Albuterol Sulfate [Albuterol Sulfate Hfa] 8.5 gm IH TID 08/29/16 [History] Alprazolam 1 mg [Xanax 1 mg] 1 mg PO DAILY 08/29/16 [History] Montelukast Sodium [Singulair] 10 mg PO DAILY 08/29/16 [History] Albuterol Sulfate [Ventolin Hfa] 8 gm IH UD 05/16/17 [History] Oxycodone HCl/Acetaminophen [Percocet 10-325 mg Tablet] 1 each PO Q4HPRN PRN 05/21 [History] Theophylline Anhydrous [Theophylline] 400 mg PO DAILY 05/16/17 [History] Omeprazole Magnesium [Prilosec Otc] 40 mg PO BID 03/23/19 [History] Hx Tetanus, Diphtheria Vaccination/Date Given: Yes Hx Influenza Vaccination/Date Given: No Hx Pneumococcal Vaccination/Date Given: Yes - Review of Systems Constitutional: Fever, Weakness Eyes: No Symptoms Ears, Nose, & Throat: No Symptoms Respiratory: No Symptoms Cardiac: Palpitations Abdominal/Gastrointestinal: Nausea, Vomiting Genitourinary Symptoms: No Symptoms Musculoskeletal: Arthralgias, Myalgias Neurological: No Symptoms Psychological: No Symptoms Endocrine: No Symptoms Hematologic/Lymphatic: No Symptoms Immunological/Allergic: No Symptoms All Other Systems: Reviewed and Negative - Past Medical History Pertinent Past Medical History: Yes Neurological History: No Pertinent History ENT History: No Pertinent History Cardiac History: Hypertension Respiratory History: Asthma, Bronchitis, COPD, Emphysema, Pneumonia Endocrine Medical History: No Pertinent History Musculoskeletal History: No Pertinent History, Other GI Medical History: GERD History: No Pertinent History Psycho-Social History: Depression Female Reproductive Disorders: No Pertinent History Other Medical History: RT shoulder Bursitis- torn rotator cuff and bone tumor. COPD. Smoker. bone tumor - Past Surgical History Past Surgical History: Yes Neuro Surgical History: No Pertinent History Cardiac: No Pertinent History Respiratory: No Pertinent History Gastrointestinal: No Pertinent History Genitourinary: No Pertinent History Musculoskeletal: No Pertinent History Female Surgical History: Tubal Ligation Other Surgical History: G-TUBE. CHEST TUBE x2. CARPAL TUNNEL. cvl port poor iv access. tracheostomy - Social History Smoking Status: Current every day smoker How long have you smoked: 35 Exposure to second hand smoke: Yes Alcohol Use: Socially Drug Use: none Patient Lives Alone: No Significant Family History: no pertinent family hx - Nursing Vital Signs Nursing Vital Signs: Initial Vital Signs Temperature 98.2 F 04/02/19 11:22 Pulse Rate 117 H 04/02/19 11:22 Respiratory Rate 20 04/02/19 11:22 Blood Pressure 150/112 04/02/19 11:22 O2 Sat by Pulse Oximetry 95 04/02/19 11:22 Pain Scale Pain Intensity 0 - Physical Exam General Appearance: mild distress, alert, anxiety Eye Exam: PERRL/EOMI, eyes nml inspection ENT Exam: normal ENT inspection, hearing grossly normal Neck Exam: normal inspection, non-tender, supple, full range of motion Respiratory Exam: normal breath sounds, lungs clear, no respiratory distress, No chest non-tender Cardiovascular/Chest Exam: normal peripheral pulses, tachycardia Gastrointestinal/Abdominal Exam: soft, non tender, no distention, no mass, no guarding, no ecchymosis, no organomegaly, no pulsatile mass, normal bowel sounds Pelvic Exam: not done Rectal Exam: not done Extremity Exam: normal range of motion, swelling (right lower ext) Neurologic Exam: alert, oriented x 3, cooperative, gel coat sprayer II-XII nml as tested Skin Exam: normal color, warm, other (mild redness right lower leg) Lymphatic: No adenopathy SpO2 Interpretation: normal O2 Delivery: Room Air - Course Nursing assessment & vital signs reviewed: Yes EKG Interpreted by Me: RATE (101), Sinus Tach, NORMAL AXIS, NORMAL INTERVALS, NORMAL QRS, Other (no comparison ekg) Ordered Tests: Active Orders 24 hr Category Date Time Status Clean Catch Urine Specimen STAT Care 04/02/19 12:11 Active EKG-ER Only STAT Care 04/02/19 12:11 Active IV Insertion STAT Care 04/02/19 12:11 Active CHEST 1 VIEW (PORTABLE) Stat Exams 04/02/19 12:12 Completed VENOUS UNILAT/LIMITED EXTREMIT [US] Stat Exams 04/02/19 12:13 Completed BLOOD CULTURE Stat Lab 04/02/19 12:50 Received CBC W DIFF Stat Lab 04/02/19 12:25 Completed CMP Stat Lab 04/02/19 12:25 Completed FREE TRIODOTHYRONINE Stat Lab 04/02/19 Ordered Lactic Acid Stat Lab 04/02/19 12:20 Completed TROPONIN Q3H Lab 04/02/19 12:25 Completed TROPONIN Q3H Lab 04/02/19 15:15 Ordered TROPONIN Q3H Lab 04/02/19 18:15 Ordered TROPONIN Q3H Lab 04/02/19 21:15 Ordered TROPONIN Q3H Lab 04/03/19 00:15 Ordered TSH [TSH, 3RD Generation] Stat Lab 04/02/19 12:51 Ordered UA W/RFX UR CULTURE Stat Lab 04/02/19 12:18 Completed Urine Triage Profile Stat Lab 04/02/19 12:18 Ordered Medication Summary Discontinued Medications Generic Name Dose Route Start Last Admin Trade Name Freq PRN Reason Stop Dose Admin Sodium Chloride 1,000 mls @ 999 mls/hr 04/02/19 12:40 04/02/19 12:46 Sodium Chloride 0.9% 1000 Ml IV 04/02/19 13:40 999 mls/hr .Q1H1M STA Administration Sodium Chloride Confirm 04/02/19 12:44 Sodium Chloride 0.9% 1000 Ml Administered 04/02/19 12:45 Dose 1,000 mls @ ud .ROUTE .STK-MED ONE Metoprolol Tartrate 5 mg 04/02/19 12:14 04/02/19 12:25 Lopressor 5 Mg/5 Ml Injection IV 04/02/19 12:15 5 mg STAT ONE Administration Metoprolol Tartrate Confirm 04/02/19 12:23 Lopressor 5 Mg/5 Ml Injection Administered 04/02/19 12:24 Dose 5 mg IV .STK-MED ONE Ondansetron HCl 4 mg 04/02/19 12:40 04/02/19 12:46 Zofran 4 Mg/2 Ml Vial IV 04/02/19 12:41 4 mg STAT ONE Administration Ondansetron HCl Confirm 04/02/19 12:44 Zofran 4 Mg/2 Ml Vial Administered 04/02/19 12:45 Dose 4 mg .ROUTE .STK-MED ONE Lab/Rad Data: Laboratory Result Diagrams 04/02/19 12:25 04/02/19 12:25 Laboratory Results 04/02/19 04/02/19 04/02/19 Range/Units Unknown 12: 12:25 WBC (4.0-10.5) K/mm3 RBC (4.1-5.4) M/mm3 Hgb (12.0-16.0) gm/dl Hct (35-47) % MCV (78-100) fl MCH (26-32) pg MCHC (32-36) g/dl RDW (11.5-14.0) % Plt Count (150-450) K/mm3 MPV (6-9.5) fl Gran % (36.0-66.0) % Eos # (Auto) (0-0.5) Absolute Lymphs (auto) (1.0-4.6) Absolute Monos (auto) (0.0-1.3) Lymphocytes % (24.0-44.0) % Monocytes % (0.0-12.0) % Eosinophils % (0.00-5.0) % Basophils % (0.0-0.4) % Absolute Granulocytes (1.4-6.9) Basophils # (0-0.4) Sodium 138 (137-145) mmol/L Potassium 4.5 (3.5-5.1) mmol/L Chloride 100 (98-107) mmol/L Carbon Dioxide 28 (22-30) mmol/L Anion Gap 14.8 (5-15) MEQ/L BUN 5 L (7-17) mg/dL Creatinine 0.84 (0.52-1.04) mg/dL Estimated GFR > 60.0 ML/MIN Glucose 116 H (74-106) mg/dL Lactic Acid (0.4-2.0) Calcium 9.5 (8.4-10.2) mg/dL Total Bilirubin 1.00 (0.2-1.3) mg/dL AST 78 H (14-36) U/L ALT 752 H (0-35) U/L Alkaline Phosphatase 148 H (38-126) U/L Troponin I 0.121 H* (0.000-0.034) ng/mL Serum Total Protein 7.5 (6.3-8.2) g/dL Albumin 3.9 (3.5-5.0) g/dL Free T4 1.10 (0.76-1.46) ng/dL Urine Color (YELLOW) Urine Appearance (CLEAR) Urine pH (5-6) Ur Specific [place] (1.005-1.025) Urine Protein (Negative) Urine Ketones (NEGATIVE) Urine Blood (0-5) Bin/ul Urine Nitrite (NEGATIVE) Urine Bilirubin (NEGATIVE) Urine Urobilinogen (0-1) mg/dL Ur Leukocyte Esterase (NEGATIVE) Urine WBC (Auto) (0-5) /HPF Urine RBC (Auto) (0-2) /HPF U Epithel Cells (Auto) (FEW) /HPF Urine Bacteria (Auto) (NEGATIVE) /HPF Urine Mucus (Auto) (NEGATIVE) /HPF Urine Culture Reflexed (NO) Urine Glucose (NEGATIVE) mg/dL 04/02/19 04/02/19 04/02/19 Range/Units 12:25 12:20 12:18 WBC 11.1 H (4.0-10.5) K/mm3 RBC 5.17 (4.1-5.4) M/mm3 Hgb 15.1 (12.0-16.0) gm/dl Hct 48.1 H (35-47) % MCV 93.0 (78-100) fl MCH 29.2 (26-32) pg MCHC 31.4 L (32-36) g/dl RDW 16.3 H (11.5-14.0) % Plt Count 323 (150-450) K/mm3 MPV 11.3 H (6-9.5) fl Gran % 67.2 H (36.0-66.0) % Eos # (Auto) 0.21 (0-0.5) Absolute Lymphs (auto) 2.69 (1.0-4.6) Absolute Monos (auto) 0.69 (0.0-1.3) Lymphocytes % 24.2 (24.0-44.0) % Monocytes % 6.2 (0.0-12.0) % Eosinophils % 1.9 (0.00-5.0) % Basophils % 0.5 (0.0-0.4) % Absolute Granulocytes 7.46 H (1.4-6.9) Basophils # 0.06 (0-0.4) Sodium (137-145) mmol/L Potassium (3.5-5.1) mmol/L Chloride (98-107) mmol/L Carbon Dioxide (22-30) mmol/L Anion Gap (5-15) MEQ/L BUN (7-17) mg/dL Creatinine (0.52-1.04) mg/dL Estimated GFR ML/MIN Glucose (74-106) mg/dL Lactic Acid 1.6 (0.4-2.0) Calcium (8.4-10.2) mg/dL Total Bilirubin (0.2-1.3) mg/dL AST (14-36) U/L ALT (0-35) U/L Alkaline Phosphatase (38-126) U/L Troponin I (0.000-0.034) ng/mL Serum Total Protein (6.3-8.2) g/dL Albumin (3.5-5.0) g/dL Free T4 (0.76-1.46) ng/dL Urine Color COLORLESS (YELLOW) Urine Appearance CLEAR (CLEAR) Urine pH 9.0 (5-6) Ur Specific [place] 1.000 (1.005-1.025) Urine Protein NEGATIVE (Negative) Urine Ketones NEGATIVE (NEGATIVE) Urine Blood NEGATIVE (0-5) Bin/ul Urine Nitrite NEGATIVE (NEGATIVE) Urine Bilirubin NEGATIVE (NEGATIVE) Urine Urobilinogen NEGATIVE (0-1) mg/dL Ur Leukocyte Esterase NEGATIVE (NEGATIVE) Urine WBC (Auto) NONE (0-5) /HPF Urine RBC (Auto) NONE (0-2) /HPF U Epithel Cells (Auto) NONE (FEW) /HPF Urine Bacteria (Auto) NONE (NEGATIVE) /HPF Urine Mucus (Auto) SLIGHT (NEGATIVE) /HPF Urine Culture Reflexed NO (NO) Urine Glucose NEGATIVE (NEGATIVE) mg/dL - Progress Progress: unchanged Progress Note: 10/29/19 13:25 cxr-right pleural effusion. cardiomegaly pt states she was nauseated and now is no longer nauseous pts troponin is elevated. i recommended pt to be transferred to facility where cardiology is present and where cardiac cath suite available. pt refuses. pt does not want to be admitted or transferred to any facility. i advised her of the benefits of transfer/admission and the risks of worsening condition including . she is deciding 04/02/19 13:39 pt will go to [facility] in transfer. 04/02/19 13:49 pt auto accepted at [facility] [place]. they will call back with name of accepting doctor. 04/02/19 13:51 Counseled pt/family regarding: lab results, diagnosis, need for follow-up, rad results - Departure Departure Disposition: Transfer Clinical Impression: Weakness, Elevated troponin, Tachycardia, Pleural effusion Condition: Stable Critical Care Time: Yes Critical Care Time(excluding separately billable procedures): Critical 30-74 mins Referrals: SUSANA CARLTON [Primary Care Provider] -
[2019-04-02] MEDS ORDERED: LOPRESSOR 5 MG/5 ML INJECTION IV ONE ×2 (12:14→12:23)
[2019-04-02 12:28] LABS: Absolute Neutrophil Ct (ANC) 7.46 (1.4-6.9); BASOPHIL % 0.5 % (0.0-0.4); Basophil (Absolute #) 0.06 (0-0.4); Eosinophil % 1.9 % (0.00-5.0); Eosinophil (Absolute #) 0.21 (0-0.5); Hematocrit 48.1 % (35-47); Hemoglobin 15.1 gm/dl (12.0-16.0); Lymphocyte (Absolute #) 2.69 (1.0-4.6); Lymphocytes % 24.2 % (24.0-44.0); Mean Corpuscular Hemoglobin 29.2 pg (26-32); Mean Corpuscular Hgb Concent. 31.4 g/dl (32-36); Mean Platelet Volume 11.3 fl (6-9.5); Monocyte (Absolute #) 0.69 (0.0-1.3); Monocytes % 6.2 % (0.0-12.0); Neutrophil % 67.2 % (36.0-66.0); Platelet Count 323 K/mm3 (150-450); Red Blood Count 5.17 M/mm3 (4.1-5.4); Red Cell Distribution Width 16.3 % (11.5-14.0); White Blood Count 11.1 K/mm3 (4.0-10.5)
[2019-04-02] MEDS ORDERED: Sodium Chloride 0.9% 1000 ML 1,000 ML IV STA (12:40)
[2019-04-02] MEDS ORDERED: Zofran 4 MG/2 ML VIAL IV ONE (12:40)
[2019-04-02 12:43] LABS: ALBUMIN 3.9 g/dL (3.5-5.0); ALKALINE PHOSPHATASE 148 U/L (38-126); ANION GAP 14.8 MEQ/L (5-15); BLOOD UREA NITROGEN 5 mg/dL (7-17); CHLORIDE 100 mmol/L (98-107); Calcium 9.5 mg/dL (8.4-10.2); Carbon Dioxide 28 mmol/L (22-30); Creatinine 1 0.84 mg/dL (0.52-1.04); Glucose 116 mg/dL (74-106); Potassium 4.5 mmol/L (3.5-5.1); SGOT/AST 78 U/L (14-36); SODIUM 138 mmol/L (137-145); Total Protein 7.5 g/dL (6.3-8.2)
[2019-04-02] MEDS ORDERED: Zofran 4 MG/2 ML VIAL ONE (12:44)
[2019-04-02] MEDS ORDERED: Sodium Chloride 0.9% 1000 ML 1,000 ML ONE (12:44)
[2019-04-02 12:49] LABS: SGPT/ALT 752 U/L (0-35)
[2019-04-02 12:53] VITALS: PULSE 100
--- NOTE | 2019-04-02 12:55 | XRAY ---
Indication: Right leg pain. Two-dimensional sonogram and color Doppler imaging of the major venous vessels of the right leg was performed. Comparison: None No thrombus seen in the examined deep venous vessels of the right leg including greater saphenous vein. Veins demonstrate normal compressibility. Venous waveforms are normal with and without augmentation. Impression: Right leg negative for DVT.
--- NOTE | 2019-04-02 13:09 | XRAY ---
Indication: Fever, cough, and "not feeling well" 2 months. Comparison: February 22, 2019. Portable chest demonstrates new cardiomegaly, mild pulmonary edema, and small bibasilar effusions with atelectasis right greater than left favoring cardiac decompensation. Superimposed pneumonia not completely excluded. Stable COPD, left apical masslike opacity, and left Port-A-Cath.
[2019-04-02 13:12] VITALS: BP 135/104
[2019-04-02 13:40] LABS: Appearance CLEAR (CLEAR); Bilirubin NEGATIVE (NEGATIVE); Blood NEGATIVE Ery/ul (0-5); Glucose NEGATIVE (NEGATIVE); Ketones NEGATIVE (NEGATIVE); Leukocyte Esterase NEGATIVE (NEGATIVE); Mucus SLIGHT /HPF (NEGATIVE); Nitrite NEGATIVE (NEGATIVE); Protein,Urine Dip NEGATIVE (Negative); Urobilinogen NEGATIVE mg/dL (0-1)
[2019-04-02 13:49] VITALS: O2SAT 95
[2019-04-02 13:49] LABS: Amphetamine,Urine NEGATIVE (NEGATIVE); Barbiturate,Urine NEGATIVE (NEGATIVE); Benzodiazepine,Urine NEGATIVE (NEGATIVE); Cocaine,Urine NEGATIVE (NEGATIVE); Methadone,Urine NEGATIVE (NEGATIVE); Opiate,Urine NEGATIVE (NEGATIVE); PCP,Urine NEGATIVE (NEGATIVE); THC,Urine NEGATIVE (NEGATIVE)
== END 2019-04-02 14:11 | disposition short-term general hospital (02) ==
LOC: ED 11:17
DX: R53.1 Weakness (principal); R94.39 Abnormal result of other cardiovascular function study; R00.0 Tachycardia, unspecified; J90 Pleural effusion, not elsewhere classified; R50.9 Fever, unspecified; I10 Essential (primary) hypertension; R11.2 Nausea with vomiting, unspecified; Z79.899 Other long term (current) drug therapy; Z79.52 Long term (current) use of systemic steroids; Z79.891 Long term (current) use of opiate analgesic; M79.604 Pain in right leg
CPT/HCPCS: 36000; 36415; 71045; 80053; 80307; 81001; 83605; 84439; 84443; 84481; 84484; 85025; 87040; 93005; 93971; 96360; 96374; 96375; 99285; 99291; J2405

== ENCOUNTER 2019-04-08 10:55 | Inpatient (IN) | payer MEDICARE ==
--- NOTE | 2019-04-08 11:02 | ERPHSYRPT ---
- History of Present Illness Time Seen by Provider: 04/08/19 11:02 Historian: patient, EMS Exam Limitations: clinical condition Physician History: 53 y/o white female smoker with h/o copd, asthma, chf. pt seen here on 03/23/19 and 04/02/19 for same issue. pt was sent to [facility] on 04/02/19 for dx of chf, plerural effusion, tachycardia and elevated troponin. per pt, she left ama 2 hours after arrival. pt has a h/o chronic intermitent fevers, chronic generalized myalgias/arthralgias, chronic leukocytosis on daily steroids, chronic tachycardia on metooprolol. pts soa worse this am. pt did not take her meds this am. pt brought to ED by ems. pt received a albuterol neb tx and im methylprednisolone Timing/Duration: week(s) (several), intermittent, worse (this) Activities at Onset: none Severity of Pain-Max: none Severity of Pain-Current: none Modifying Factors: Improves With: oxygen Associated Symptoms: shortness of breath Nitro Today/Relief: no nitro taken today Aspirin Treatment Today: no aspirin today Allergies/Adverse Reactions: No Known Drug Allergies Allergy (Verified 04/08/19 11:18) Home Medications: Albuterol Sulfate [Albuterol Sulfate Hfa] 8.5 gm IH TID 08/29/16 [History] Alprazolam 1 mg [Xanax 1 mg] 1 mg PO DAILY 08/29/16 [History] Montelukast Sodium [Singulair] 10 mg PO DAILY 08/29/16 [History] Albuterol Sulfate [Ventolin Hfa] 8 gm IH UD 05/16/17 [History] Oxycodone HCl/Acetaminophen [Percocet 10-325 mg Tablet] 1 each PO Q4HPRN PRN 05/21 [History] Theophylline Anhydrous [Theophylline] 400 mg PO DAILY 05/16/17 [History] Omeprazole Magnesium [Prilosec Otc] 40 mg PO BID 03/23/19 [History] Hx Tetanus, Diphtheria Vaccination/Date Given: Yes Hx Influenza Vaccination/Date Given: No Hx Pneumococcal Vaccination/Date Given: Yes - Review of Systems Constitutional: No Symptoms Eyes: No Symptoms Ears, Nose, & Throat: No Symptoms Respiratory: Dyspnea Cardiac: No Symptoms Abdominal/Gastrointestinal: No Symptoms Genitourinary Symptoms: No Symptoms Musculoskeletal: No Symptoms Skin: No Symptoms Neurological: No Symptoms Psychological: No Symptoms Endocrine: No Symptoms Hematologic/Lymphatic: No Symptoms Immunological/Allergic: No Symptoms All Other Systems: Reviewed and Negative - Past Medical History Pertinent Past Medical History: Yes Neurological History: No Pertinent History ENT History: No Pertinent History Cardiac History: Hypertension Respiratory History: Asthma, Bronchitis, COPD, Emphysema, Pneumonia Endocrine Medical History: No Pertinent History Musculoskeletal History: No Pertinent History, Other GI Medical History: GERD History: No Pertinent History Psycho-Social History: Depression Female Reproductive Disorders: No Pertinent History Other Medical History: RT shoulder Bursitis- torn rotator cuff and bone tumor. COPD. Smoker. bone tumor - Past Surgical History Past Surgical History: Yes Neuro Surgical History: No Pertinent History Cardiac: No Pertinent History Respiratory: No Pertinent History Gastrointestinal: No Pertinent History Genitourinary: No Pertinent History Musculoskeletal: No Pertinent History Female Surgical History: Tubal Ligation Other Surgical History: G-TUBE. CHEST TUBE x2. CARPAL TUNNEL. cvl port poor iv access. tracheostomy - Social History Smoking Status: Current every day smoker How long have you smoked: 35 Exposure to second hand smoke: Yes Alcohol Use: Socially Drug Use: none Patient Lives Alone: No Significant Family History: no pertinent family hx - Nursing Vital Signs Nursing Vital Signs: Initial Vital Signs Temperature 97.4 F 04/08/19 10:56 Pulse Rate 142 H 04/08/19 10:56 Respiratory Rate 30 H 04/08/19 10:56 Blood Pressure 164/131 04/08/19 10:56 O2 Sat by Pulse Oximetry 88 L 04/08/19 10:56 Pain Scale Pain Intensity 0 - Physical Exam General Appearance: moderate distress, alert, anxiety Eye Exam: PERRL/EOMI, eyes nml inspection Ears, Nose, Throat Exam: normal ENT inspection, TM abnormal (L) Neck Exam: normal inspection, non-tender, supple, full range of motion Respiratory Exam: normal breath sounds, respiratory distress (mild), No chest tenderness, No airway intact, No wheezing, No stridor Cardiovascular Exam: regular rate/rhythm, normal heart sounds, normal peripheral pulses Gastrointestinal/Abdomen Exam: soft, No normal bowel sounds, No tenderness Pelvic Exam: not done Rectal Exam: not done Back Exam: normal inspection, normal range of motion, No CVA tenderness, No vertebral tenderness Extremity Exam: normal inspection, normal range of motion, pelvis stable Neurologic Exam: alert, oriented x 3, cooperative, director of player personnel II-XII nml as tested Skin Exam: normal color, warm, dry Lymphatic Exam: No adenopathy SpO2 Interpretation: borderline oxygenation O2 Delivery: Aerosol Mask - Course Nursing assessment & vital signs reviewed: Yes EKG Interpreted by Me: RATE (140), Sinus Rhythm, Sinus Tach, NORMAL AXIS, NORMAL INTERVALS, NORMAL QRS, Other (compared to ekg dated 11/01/17 new tachycardia and new right ventricular hypertrophy) Ordered Tests: Active Orders 24 hr Category Date Time Status Cardiology Teacher STAT Care 04/08/19 11:03 Active EKG-ER Only STAT Care 04/08/19 11:02 Active IV Insertion STAT Care 04/08/19 11:02 Active Pulse Oximetry (ED) STAT Care 04/08/19 11:02 Active CHEST 1 VIEW (PORTABLE) Stat Exams 04/08/19 11:03 Completed CHEST WITH CONTRAST [CT] Stat Exams 04/08/19 12:22 Completed ABG [ARTERIAL BLOOD GASES] Stat Lab 04/08/19 11:17 Completed CBC W DIFF Stat Lab 04/08/19 11:29 Completed CMP Stat Lab 04/08/19 11:29 Completed D-DIMER QUANTITATION Stat Lab 04/08/19 11:29 Completed Lactic Acid Stat Lab 04/08/19 11:22 Completed Lactic Acid Stat Lab 04/08/19 13:27 Ordered NT PRO BNP Stat Lab 04/08/19 11:29 Completed PROTIME WITH INR Stat Lab 04/08/19 11:29 Completed TROPONIN Q3H Lab 04/08/19 11:29 Completed TROPONIN Q3H Lab 04/08/19 14:15 Ordered TROPONIN Q3H Lab 04/08/19 17:15 Ordered TROPONIN Q3H Lab 04/08/19 20:15 Ordered TROPONIN Q3H Lab 04/08/19 23:15 Ordered Medication Summary Generic Name Dose Route Start Last Admin Trade Name Freq PRN Reason Stop Dose Admin Sodium Chloride 1,000 mls @ 50 mls/hr 04/08/19 12:30 04/08/19 13:16 Sodium Chloride 0.9% 1000 Ml IV 05/08/19 12:29 50 mls/hr .Q20H MORALES Administration Discontinued Medications Generic Name Dose Route Start Last Admin Trade Name Freq PRN Reason Stop Dose Admin Furosemide 40 mg 04/08/19 12:21 04/08/19 13:16 Lasix 40 Mg/4 Ml IV 04/08/19 12:22 40 mg STAT ONE Administration Furosemide Confirm 04/08/19 13:12 Lasix 40 Mg/4 Ml Administered 04/08/19 13:13 Dose 40 mg .ROUTE .STK-MED ONE Furosemide Confirm 04/08/19 13:14 Lasix 40 Mg/4 Ml Administered 04/08/19 13:15 Dose 40 mg .ROUTE .STK-MED ONE Lorazepam 0.5 mg 04/08/19 11:16 04/08/19 11:26 Ativan 2 Mg/1 Ml Vial IV 04/08/19 11:17 0.5 mg STAT ONE Administration Lorazepam Confirm 04/08/19 11:23 Ativan 2 Mg/1 Ml Vial Administered 04/08/19 11:24 Dose 2 mg .ROUTE .STK-MED ONE Metoprolol Tartrate 5 mg 04/08/19 11:17 04/08/19 11:26 Lopressor 5 Mg/5 Ml Injection IV 04/08/19 11:18 5 mg STAT ONE Administration Metoprolol Tartrate Confirm 04/08/19 11:23 Lopressor 5 Mg/5 Ml Injection Administered 04/08/19 11:24 Dose 5 mg IV .STK-MED ONE Lab/Rad Data: Laboratory Result Diagrams 04/08/19 11:29 04/08/19 11:29 Laboratory Results 04/08/19 04/08/19 04/08/19 Range/Units 11:29 11:29 11:29 WBC (4.0-10.5) K/mm3 RBC (4.1-5.4) M/mm3 Hgb (12.0-16.0) gm/dl Hct (35-47) % MCV (78-100) fl MCH (26-32) pg MCHC (32-36) g/dl RDW (11.5-14.0) % Plt Count (150-450) K/mm3 MPV (6-9.5) fl Gran % (36.0-66.0) % Eos # (Auto) (0-0.5) Absolute Lymphs (auto) (1.0-4.6) Absolute Monos (auto) (0.0-1.3) Lymphocytes % (24.0-44.0) % Monocytes % (0.0-12.0) % Eosinophils % (0.00-5.0) % Basophils % (0.0-0.4) % Absolute Granulocytes (1.4-6.9) Basophils # (0-0.4) PT 12.3 (9.95-12.35) SECONDS INR 1.09 (0.8-3.0) D-Dimer 1443 H* (215-500) ng/mL Puncture Site pCO2 (35-45) mmHg pO2 (75-100) mmHg Base Excess (-2.0-2.0) O2 Saturation (94-100) g/dF ABG pH (7.35-7.45) ABG HCO3 (22-28) ABG O2 Sat (Measured) (95-100) % Giovany Test A-a Gradient a/A Ratio Hemoglobin Carboxyhemoglobin (0.0-6.9) % THgb Methemoglobin (1.4-1.5) % Potassium (3.5-5.1) Temperature C POC O2 Flow Rate % Sodium (137-145) mmol/L Chloride (98-107) mmol/L Carbon Dioxide (22-30) mmol/L Anion Gap (5-15) MEQ/L BUN (7-17) mg/dL Creatinine (0.52-1.04) mg/dL Estimated GFR ML/MIN Glucose (74-106) mg/dL Lactic Acid (0.4-2.0) Calcium (8.4-10.2) mg/dL Total Bilirubin (0.2-1.3) mg/dL AST (14-36) U/L ALT (0-35) U/L Alkaline Phosphatase (38-126) U/L Troponin I 0.077 H* (0.000-0.034) ng/mL NT-Pro-B Natriuret Pep (0-900) pg/mL Serum Total Protein (6.3-8.2) g/dL Albumin (3.5-5.0) g/dL Theophylline 14.1 (10-20) ug/mL 04/08/19 04/08/19 04/08/19 Range/Units 11:29 11:29 11:22 WBC 16.9 H (4.0-10.5) K/mm3 RBC 4.78 (4.1-5.4) M/mm3 Hgb 13.7 (12.0-16.0) gm/dl Hct 44.7 (35-47) % MCV 93.5 (78-100) fl MCH 28.7 (26-32) pg MCHC 30.6 L (32-36) g/dl RDW 16.5 H (11.5-14.0) % Plt Count 435 (150-450) K/mm3 MPV 10.9 H (6-9.5) fl Gran % 65.4 (36.0-66.0) % Eos # (Auto) 0.13 (0-0.5) Absolute Lymphs (auto) 4.48 (1.0-4.6) Absolute Monos (auto) 1.20 (0.0-1.3) Lymphocytes % 26.5 (24.0-44.0) % Monocytes % 7.1 (0.0-12.0) % Eosinophils % 0.8 (0.00-5.0) % Basophils % 0.2 (0.0-0.4) % Absolute Granulocytes 11.04 H (1.4-6.9) Basophils # 0.04 (0-0.4) PT (9.95-12.35) SECONDS INR (0.8-3.0) D-Dimer (215-500) ng/mL Puncture Site pCO2 (35-45) mmHg pO2 (75-100) mmHg Base Excess (-2.0-2.0) O2 Saturation (94-100) g/dF ABG pH (7.35-7.45) ABG HCO3 (22-28) ABG O2 Sat (Measured) (95-100) % Giovany Test A-a Gradient a/A Ratio Hemoglobin Carboxyhemoglobin (0.0-6.9) % THgb Methemoglobin (1.4-1.5) % Potassium 3.9 (3.5-5.1) Temperature C POC O2 Flow Rate % Sodium 139 (137-145) mmol/L Chloride 107 (98-107) mmol/L Carbon Dioxide 21 L (22-30) mmol/L Anion Gap 14.6 (5-15) MEQ/L BUN 18 H (7-17) mg/dL Creatinine 1.17 H (0.52-1.04) mg/dL Estimated GFR 51.4 ML/MIN Glucose 133 H (74-106) mg/dL Lactic Acid 2.0 (0.4-2.0) Calcium 8.8 (8.4-10.2) mg/dL Total Bilirubin 0.50 (0.2-1.3) mg/dL AST 33 (14-36) U/L ALT 185 H (0-35) U/L Alkaline Phosphatase 99 (38-126) U/L Troponin I (0.000-0.034) ng/mL NT-Pro-B Natriuret Pep 61776 H (0-900) pg/mL Serum Total Protein 6.8 (6.3-8.2) g/dL Albumin 3.6 (3.5-5.0) g/dL Theophylline (10-20) ug/mL 04/08/19 Range/Units 11:17 WBC (4.0-10.5) K/mm3 RBC (4.1-5.4) M/mm3 Hgb (12.0-16.0) gm/dl Hct (35-47) % MCV (78-100) fl MCH (26-32) pg MCHC (32-36) g/dl RDW (11.5-14.0) % Plt Count (150-450) K/mm3 MPV (6-9.5) fl Gran % (36.0-66.0) % Eos # (Auto) (0-0.5) Absolute Lymphs (auto) (1.0-4.6) Absolute Monos (auto) (0.0-1.3) Lymphocytes % (24.0-44.0) % Monocytes % (0.0-12.0) % Eosinophils % (0.00-5.0) % Basophils % (0.0-0.4) % Absolute Granulocytes (1.4-6.9) Basophils # (0-0.4) PT (9.95-12.35) SECONDS INR (0.8-3.0) D-Dimer (215-500) ng/mL Puncture Site LEFT RADIAL pCO2 28 L (35-45) mmHg pO2 172 H* (75-100) mmHg Base Excess -2.6 L (-2.0-2.0) O2 Saturation 96.4 (94-100) g/dF ABG pH 7.46 H (7.35-7.45) ABG HCO3 19.9 L (22-28) ABG O2 Sat (Measured) 100.1 H (95-100) % Giovany Test yes A-a Gradient 506 a/A Ratio 0.25 Hemoglobin 14.1 Carboxyhemoglobin 2.8 (0.0-6.9) % THgb Methemoglobin 0.8 L (1.4-1.5) % Potassium 3.7 (3.5-5.1) Temperature 37.0 C POC O2 Flow Rate 100 % Sodium (137-145) mmol/L Chloride (98-107) mmol/L Carbon Dioxide (22-30) mmol/L Anion Gap (5-15) MEQ/L BUN (7-17) mg/dL Creatinine (0.52-1.04) mg/dL Estimated GFR ML/MIN Glucose (74-106) mg/dL Lactic Acid (0.4-2.0) Calcium (8.4-10.2) mg/dL Total Bilirubin (0.2-1.3) mg/dL AST (14-36) U/L ALT (0-35) U/L Alkaline Phosphatase (38-126) U/L Troponin I (0.000-0.034) ng/mL NT-Pro-B Natriuret Pep (0-900) pg/mL Serum Total Protein (6.3-8.2) g/dL Albumin (3.5-5.0) g/dL Theophylline (10-20) ug/mL - Progress Progress: improved, re-examined Air Movement: good Progress Note: 04/08/19 13:47 cta chest- no definite pulm emboli. new cardiomegaly and bilat pleural effusions. stable left upper lobe opacity. new right upper lobe opacity Blood Culture(s) Obtained: No Antibiotics given: No Discussed with : Erik Counseled pt/family regarding: lab results, diagnosis, rad results - Departure Departure Disposition: Observation Clinical Impression: CHF (congestive heart failure), Pleural effusion, Hypoxia Condition: Stable Critical Care Time: Yes Critical Care Time(excluding separately billable procedures): Critical 30-74 mins Referrals: SUSANA CUEVAS [Primary Care Provider] - Instructions: Heart Failure
[2019-04-08] MEDS ORDERED: Ativan 2 MG/1 ML VIAL IV ONE (11:16)
[2019-04-08] MEDS ORDERED: LOPRESSOR 5 MG/5 ML INJECTION IV ONE ×2 (11:17→11:23)
[2019-04-08] MEDS ORDERED: Ativan 2 MG/1 ML VIAL ONE (11:23)
[2019-04-08 11:26] LABS: A-aADO2 506; ABG HEMOGLOBIN 14.1; ABG POTASSIUM 3.7 (3.5-5.1); ABG SITE LEFT RADIAL; ALLEN TEST OK? yes; ARTERIAL BLD GAS O2 SATURATION 100.1 % (95-100); ARTERIAL BLOOD GAS BASE EXCESS -2.6 (-2.0-2.0); ARTERIAL BLOOD GAS FIO2 100 %; ARTERIAL BLOOD GAS PCO2 28 mmHg (35-45); ARTERIAL BLOOD GAS PO2 172 mmHg (75-100); ARTERIAL BLOOD GAS pH 7.46 (7.35-7.45); CARBOXYHEMOGLOBIN 2.8 % THgb (0.0-6.9); HCO3- 19.9 (22-28); HGB O2 SAT 96.4 g/dF (94-100); Methhemoglobin 0.8 % (1.4-1.5); paO2 pAO1 0.25
[2019-04-08 11:37] LABS: Absolute Neutrophil Ct (ANC) 11.04 (1.4-6.9); BASOPHIL % 0.2 % (0.0-0.4); Basophil (Absolute #) 0.04 (0-0.4); Eosinophil % 0.8 % (0.00-5.0); Eosinophil (Absolute #) 0.13 (0-0.5); Hematocrit 44.7 % (35-47); Hemoglobin 13.7 gm/dl (12.0-16.0); INR 1.09 (0.8-3.0); Lymphocyte (Absolute #) 4.48 (1.0-4.6); Lymphocytes % 26.5 % (24.0-44.0); Mean Cell Volume 93.5 fl (78-100); Mean Corpuscular Hemoglobin 28.7 pg (26-32); Mean Corpuscular Hgb Concent. 30.6 g/dl (32-36); Mean Platelet Volume 10.9 fl (6-9.5); Monocytes % 7.1 % (0.0-12.0); Neutrophil % 65.4 % (36.0-66.0); PROTIME 12.3 SECONDS (9.95-12.35); Platelet Count 435 K/mm3 (150-450); Red Blood Count 4.78 M/mm3 (4.1-5.4); Red Cell Distribution Width 16.5 % (11.5-14.0); White Blood Count 16.9 K/mm3 (4.0-10.5)
[2019-04-08 11:50] LABS: ALBUMIN 3.6 g/dL (3.5-5.0); ANION GAP 14.6 MEQ/L (5-15); BILIRUBIN,TOTAL 0.5 mg/dL (0.2-1.3); Calcium 8.8 mg/dL (8.4-10.2); Creatinine 1 1.17 mg/dL (0.52-1.04); Potassium 3.9 mmol/L (3.5-5.1); Total Protein 6.8 g/dL (6.3-8.2)
--- NOTE | 2019-04-08 11:58 | XRAY ---
Indication: Short of breath. Comparison: April 02, 2019. Portable chest unchanged again demonstrating cardiomegaly, mild pulmonary edema, and small bibasilar effusions with atelectasis right greater than left again favoring cardiac decompensation. Elsewhere stable COPD, left apical masslike opacity, and left Port-A-Cath. No new cardiopulmonary abnormalities.
[2019-04-08] MEDS ORDERED: Lasix 40 MG/4 ML IV ONE (12:21)
[2019-04-08] MEDS ORDERED: Sodium Chloride 0.9% 1000 ML 1,000 ML IV SCH ×2 (12:30→14:50)
[2019-04-08] MEDS ORDERED: Lasix 40 MG/4 ML ONE ×2 (13:12→13:14)
[2019-04-08] MEDS ORDERED: Sodium Chloride 0.9% 1000 ML 1,000 ML ONE (13:12)
--- NOTE | 2019-04-08 13:34 | XRAY ---
Indication: Elevated d-dimer. Short of breath, weakness, and chest pain. Multiple contiguous axial images obtained through the chest using 80 cc Isovue 370 contrast and PE protocol. Comparison: CT chest without contrast April 11, 2017. There is good opacification of the pulmonary arteries to includes the lobar and segmental branches. However mild respiration artifact slightly limits evaluation for pulmonary embolus. No filling defect or pulmonary embolus. Heart is now enlarged with new left Port-A-Cath. Stable small left hilar calcified nodes. No pathologic mediastinal/hilar lymphadenopathy. Lungs demonstrates new small pleural effusions, right greater than left with mild bibasilar compressive atelectasis. Elsewhere stable pulmonary emphysema, scattered fibrosis/scarring, left lower lobe calcified granuloma, and left upper lobe masslike opacity. Right apex demonstrates new 1.3 x 3.0 cm noncalcified spiculated masslike opacity similar in appearance to the contralateral masslike opacity. Bony thorax intact again with minimal degenerative changes throughout the spine. Limited upper abdomen unremarkable. Impression: 1. Mild respiration artifact limits evaluation for pulmonary embolus. No obvious pulmonary embolus. 2. New cardiomegaly and bilateral pleural effusions favoring cardiac decompensation. 3. Stable left upper lobe masslike opacity with new right upper lobe masslike opacity as detailed. 4. Stable pulmonary emphysema, scattered fibrosis/scarring, and evidence for old granulomatous disease. CT DI 11.84
[2019-04-08 14:09] LABS: Lactic Acid 2.2 (0.4-2.0)
[2019-04-08] MEDS ORDERED: Lasix 40 MG/4 ML IV SCH ×2 (14:50→22:00)
[2019-04-08] MEDS ORDERED: Zofran 4 MG/2 ML VIAL IV PRN (14:50)
[2019-04-08] MEDS ORDERED: TYLENOL 325 MG PO PRN (14:50)
[2019-04-08] MEDS ORDERED: Sodium Chloride 0.9% 10 ML FLUSH Syringe IV PRN (17:30)
[2019-04-08] MEDS ORDERED: PROVENTIL 2.5 MG/3 ML NEB IH PRN (18:03)
[2019-04-08] MEDS ORDERED: Ventolin Hfa MDI IH SCH (22:00)
[2019-04-08] MEDS: BUMEX 1 MG IV SCH (22:15)
[2019-04-08] MEDS: Protonix 40MG Tablet PO SCH (22:15)
[2019-04-09] MEDS: OXYCODONE-ACETAMINOPHEN 10-325 PO PRN ×3 (00:13→20:45)
[2019-04-09 04:57] LABS: Absolute Neutrophil Ct (ANC) 10.48 (1.4-6.9); BASOPHIL % 0.1 % (0.0-0.4); Basophil (Absolute #) 0.01 (0-0.4); Eosinophil % 0.1 % (0.00-5.0); Eosinophil (Absolute #) 0.01 (0-0.5); Hematocrit 39.9 % (35-47); Hemoglobin 12.3 gm/dl (12.0-16.0); Lymphocyte (Absolute #) 1.01 (1.0-4.6); Lymphocytes % 8.4 % (24.0-44.0); Mean Cell Volume 93.4 fl (78-100); Mean Corpuscular Hemoglobin 28.8 pg (26-32); Mean Corpuscular Hgb Concent. 30.8 g/dl (32-36); Monocyte (Absolute #) 0.54 (0.0-1.3); Monocytes % 4.5 % (0.0-12.0); Neutrophil % 86.9 % (36.0-66.0); Platelet Count 340 K/mm3 (150-450); Red Blood Count 4.27 M/mm3 (4.1-5.4); Red Cell Distribution Width 15.8 % (11.5-14.0); White Blood Count 12.1 K/mm3 (4.0-10.5)
[2019-04-09 05:18] LABS: ALBUMIN 3.1 g/dL (3.5-5.0); ALKALINE PHOSPHATASE 74 U/L (38-126); ANION GAP 10.6 MEQ/L (5-15); BLOOD UREA NITROGEN 20 mg/dL (7-17); CHLORIDE 100 mmol/L (98-107); Calcium 8.5 mg/dL (8.4-10.2); Carbon Dioxide 30 mmol/L (22-30); Creatinine 1 1.02 mg/dL (0.52-1.04); Glucose 113 mg/dL (74-106); NT PRO BNP 22900 pg/mL (0-900); Potassium 3.9 mmol/L (3.5-5.1); SGOT/AST 29 U/L (14-36); SGPT/ALT 139 U/L (0-35); SODIUM 136 mmol/L (137-145); Total Protein 6.1 g/dL (6.3-8.2)
[2019-04-09 05:39] LABS: A-aADO2 24; ABG HEMOGLOBIN 11.9; ABG POTASSIUM 3.6 (3.5-5.1); ARTERIAL BLD GAS O2 SATURATION 96.6 % (95-100); ARTERIAL BLOOD GAS BASE EXCESS 4.7 (-2.0-2.0); ARTERIAL BLOOD GAS FIO2 21 %; ARTERIAL BLOOD GAS PCO2 42 mmHg (35-45); ARTERIAL BLOOD GAS PO2 73 mmHg (75-100); ARTERIAL BLOOD GAS pH 7.45 (7.35-7.45); CARBOXYHEMOGLOBIN 1.7 % THgb (0.0-6.9); HCO3- 29.2 (22-28); HGB O2 SAT 93.8 g/dF (94-100); Methhemoglobin 1.1 % (1.4-1.5); paO2 pAO1 0.75
[2019-04-09 05:40] LABS: ABG SITE RIGHT BRACHIAL; ALLEN TEST OK? YES
[2019-04-09] MEDS: Sodium Chloride 0.9% 10 ML FLUSH Syringe IV SCH ×3 (07:36→20:52)
--- NOTE | 2019-04-09 07:56 | CONS ---
CONSULT DATE: 04/08/2019 HISTORY: Karen Hazel is a 53 year-old woman, seen by me in the past but not followed since July 2017, who has been admitted with progressive shortness of breath. The patient reportedly has been getting cough productive of clear yellow expectoration along with leg swelling. She presented to [facility] from where she has been hospitalized. The patient is noted to have swelling 2 to 3+ of both lower extremities. In addition, the right foot is noted to have erythema suggestive of cellulitis. She was noted to have bilateral pleural effusions along with cardiomegaly and positive cardiac enzymes. A cardiac consultation has been requested and is currently pending. The patient's effort tolerance has been significantly reduced. She was diagnosed with chronic obstructive pulmonary disease. In addition, she had a left upper lobe mass lesion which has remained somewhat stable on current CT. The patient had declined biopsy of this mass in the past and remains PET negative. PAST MEDICAL HISTORY: Positive for history of obstructive airways disease, history of pneumothorax, pulmonary fibrosis, chronic obstructive pulmonary disease, renal failure, hypertension and substance abuse. PAST SURGICAL HISTORY: She has had chest tube placement, feeding tube, tonsillectomy and port placement. PERSONAL AND SOCIAL HISTORY: The patient still smokes half to one pack of cigarettes per day. MEDICATIONS: Home and current medications are reviewed. ALLERGIES: NKDA. PHYSICAL EXAMINATION: This is a middle aged woman who appears comfortable, able to speak without much difficulty. Vital signs noted. HEENT: Normocephalic. Oral exam is limited. NECK: Supple. CVS: First and second heart sounds are normal, regular, rhythmic. RESPIRATORY: Shows diminished breath sounds, crackles and scattered rhonchi are heard. ABDOMEN: Soft. EXTREMITIES: Leg edema 2+ is noted. Right foot erythema is noted as well. LABORATORY DATA AND TESTS: White count 16.9, hemoglobin 13.7, hematocrit 45, PLT 435,000. Sodium 139, potassium 3.9, chloride 107, bicarb 21, BUN 18, creatinine 1.17. D-dimer 1443. Troponins 0.097. BNP 16,000. Chest CT reviewed. ASSESSMENT: This is a 53 year old woman admitted with: 1) Shortness of breath which clearly appears to be combination of cardiac onset which appears new and pulmonary problem. 2) Congestive heart failure with decompensation. 3) Non-ST myocardial infarction. 4) Right lower extremity cellulitis. 5) Chronic obstructive pulmonary disease with exacerbation. 6) Pulmonary fibrosis. 7) Nicotine addiction. 8) Left upper lobe lung mass, declined work up in the past appears stable. RECOMMENDATIONS: 1) Continue present treatment. 2) Continue antibiotics. 3) Continue bronchodilator and supplemental oxygen as needed. 4) Cautious diuresis. 5) Cardiac work up. Certainly an echo would be beneficial to assess left ventricular ejection fraction as well as right-sided pressures. 6) The patient had positive cardiac enzymes, will benefit from venous Doppler's. 7) Need for smoking cessation is stressed. 8) Further recommendations pending clinical improvement. I explained the plan of care with the patient. Thank you for allowing me to participate in the care of Miss Hazel.
--- NOTE | 2019-04-09 10:00 | HP ---
CHIEF COMPLAINT: Shortness of breath. HISTORY OF PRESENT ILLNESS: The patient is a 53 year-old white female with long history of chronic obstructive pulmonary disease and asthma exacerbation. The patient has been seen three times in the past ten days for increasing shortness of breath problems. We originally thought the patient was having exacerbations of her chronic obstructive pulmonary disease but on the most recent evaluation the patient was found to have elevated troponins with elevated ProBNP level as well. The patient on chest x-ray shown to have what appeared to be cardiac decompensation. The patient is admitted to the hospital for further evaluation and management, consultations from Dr. Rashard Rhodes from pulmonary and Dr. Paige from cardiology have been ordered. PAST MEDICAL/SURGICAL HISTORY: Significant for lung masses in the apex of the right lung and also ischemia of the bone. The patient reports that six years ago she had PET scan which negative for evidence of malignancy. The patient now has further evidence of lung mass now on the left side as well. The patient does not wish to have any further evaluation at this time and she just wishes to live with the consequences. The patient otherwise has respiratory failure. MEDICATIONS: Her home medications are Albuterol, Alprazolam, Montelukast, oxycodone, Theophylline, omeprazole. ALLERGIES: NKDA. PHYSICAL EXAMINATION: Showed her temperature to be 97.4F, pulse 142, respiratory rate 30, blood pressure 164/131. O2 saturation 88%. HEENT: Normocephalic, atraumatic. Pupils equal round reactive to light. Extraocular movements intact. Oropharynx is moist. NECK: Supple without palpable masses. CHEST: Reveals diminished air movement with more crackles this time than wheezes. HEART: Somewhat tachycardic but no significant murmurs, rubs or gallops heard. ABDOMEN: Soft. No palpable masses. EXTREMITIES: Edematous. NEUROLOGIC: The patient is alert and oriented x3. LAB DATA AND TESTS: Again showed chest x-ray which appeared to have cardiac decompensation. She had elevated D-dimer which led to a CT scan showing the evidence of new apical masses on the left side as well as the chronic ones on the right also extending into the humerus on the right side. The patient had venous Doppler's which were negative for deep venous thrombosis. CT scan of the chest was negative for pulmonary embolus. The patient's EKG showed sinus tachycardia with slight ST depression the lateral leads particularly V4-V6. The patient's troponin was somewhat elevated the most recent one was 0.2097. She had D-dimer at 1,443. International normalized ratio 1.09. Sugar 133, BUN 18, creatinine 1.17. Electrolytes were normal. Liver enzymes showed a slight elevation of SGPT of 185. Her ProBNP was 16,000. White count 16,900, hemoglobin 13.7, PLT count 435,000. Theophylline level therapeutic at 14.1. ABG showed pH of 7.46, pCO2 28, pO2 172 on supplemental oxygen. Lactic acid 2.0. ASSESSMENT: 1) A patient with cardiac decompensation appears to be in congestive heart failure. Will get echocardiogram, cardiology consultation, monitor troponins. 2) A patient with serious significant chronic obstructive pulmonary disease exacerbations now new masses on the CT scan. The patient does not wish to have further evaluation of her lung masses although she does wish to be a full code.
--- NOTE | 2019-04-09 10:23 | XRAY ---
Indication: DVT. Two-dimensional sonogram and color Doppler imaging of the major venous vessels of the left and right leg was performed. Comparison: Right leg venous ultrasound April 02, 2019. No thrombus seen in the examined deep venous vessels of the left and right leg including greater saphenous vein. Veins demonstrate normal compressibility. Venous waveforms are normal with and without augmentation. Impression: Left and again right leg are negative for DVT.
[2019-04-09] MEDS: BUMEX 1 MG IV SCH ×2 (10:35→20:50)
[2019-04-09] MEDS: Protonix 40MG Tablet PO SCH ×2 (10:35→20:45)
[2019-04-09] MEDS: CLARITIN 10 MG PO SCH (10:35)
[2019-04-09] MEDS: Singulair 10 MG PO SCH (10:36)
[2019-04-09] MEDS: XANAX 1 MG PO SCH (10:36)
[2019-04-09] MEDS: THEOPHYLLINE ER 24HR PO SCH (10:36)
--- NOTE | 2019-04-09 12:20 | CONS ---
CONSULT DATE: 04/09/2019 BRIEF HISTORY: This is a 53 year-old female who was seen because of intermittent shortness of breath and bilateral leg edema. The patient states that she has been having intermittent leg edema for the last three months associated with orthopnea. She was in the emergency room of [facility] with a mildly elevated troponin I but she discharged herself against medical advice before further work up could be initiated. She then was seen back at [facility] presenting with increasing shortness of breath associated with bilateral leg edema. She denies any chest pain. She has never had myocardial infarction or previous heart failure. She has never had any cardiac work up in the past. She states that she has had increasing abdominal girth and sometimes her fingers feel swollen. She never had any syncopal attacks. She has chronic tachycardia. CARDIAC RISK FACTORS: Negative for diabetes. Positive for hypertension. She used to smoke about two packs of cigarettes a day but is down to two cigarettes a day. No known hyperlipidemia. FAMILY HISTORY: Negative for premature coronary artery disease. CURRENT MEDICATIONS: Proventil, Xanax, Bumex, loratadine, Singulair, Protonix, acetaminophen. REVIEW OF SYSTEMS: TUBING TESTER: No prior history of stroke. No seizures. No chronic headaches. No visual disturbances. No hearing difficulties. RESPIRATORY: Chronic obstructive lung disease emphysema component. Recent CT scan did show some pulmonary masses. Denies any hemoptysis. GI: No history of nausea or vomiting. She has an abdominal wall hernia. No constipation or diarrhea. : Negative for dysuria or hematuria. No chronic pain. PERIPHERAL VASCULAR: No history of deep venous thrombosis or claudication. SKIN: No active dermatological problems. HEMATOLOGY: No blood dyscrasia. ENDOCRINE: No thyroid disorder. PAST SURGICAL HISTORY: Includes surgery on the right shoulder, repair or ruptured biceps muscle. 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 She has a Port-A-Cath in place. SOCIAL HISTORY: She used to executive assistant to president for several years. She is . She has no significant alcohol intake. PHYSICAL EXAMINATION: Her blood pressure is 114/84, heart rate 115, respirations about 20. GENERAL: She is a middle aged female who is alert, conversant with normal mental status, appears to be chronically ill. HEENT: Unremarkable. NECK: There is mild JVD. CHEST: There is scattered rhonchi in both lung grissom. CARDIAC: Heart tones are somewhat diminished. There is a grade 2/6 mid holosystolic murmur. There is an audible rub. ABDOMEN: Soft with normal bowel sounds. EXTREMITIES: There is bilateral leg edema just above the knee and pitting. LAB DATA AND DIAGNOSTIC TESTS: The EKG shows sinus tachycardia. The glomerular filtration rate is greater than 60. ProBNP 13,900. CBC shows hemoglobin 12.3 white blood cell 12.4, PLT 240,000. Chest x-ray shows bilateral upper lobe masses. There is also cardiomegaly and bilateral pleural effusion. IMPRESSION: In essence the patient appears to be in: 1) Decompensated heart failure. Will review the echocardiogram to assess left ventricular systolic and diastolic function. The patient will be started on beta blockers. 2) Chronic obstructive lung disease: 3) Hypertension. Reviewed ECHO and showed severe biventricular systolic dysfunction with LVEF of 15-20%. This is likely due to non-ischemic Cardiomyopathy from a viral myocarditis, or long standing HTN. CAD is not entirely ruled out and would likely need a cath to define coronary anatomy. This will be schedule after she gets more compensated. Will initiate neurohormonal modulation starting with long acting beta brayden and later add Entresto, Patient and son made aware of patient's cardiac status. She also need a lifevest on discharge. Emphasized to her about compliance and for her to quit smoking. I will follow up with you.
--- NOTE | 2019-04-09 12:28 | ECHO ---
Transthoracic echocardiographic examination and color Doppler was done on 04/09/2019. INDICATION: Congestive heart failure, shortness of breath, bilateral leg edema. IMPRESSION: 1) SEVERE GLOBAL LEFT VENTRICULAR HYPOKINESIA. EJECTION FRACTION BETWEEN 15 TO 20%. 2) MILD TO MODERATE MITRAL REGURGITATION. 3) SEVERE TRICUSPID REGURGITATION. RIGHT VENTRICULAR SYSTOLIC PRESSURE OF 38 MM OF MERCURY. 4) TRACE PULMONIC INSUFFICIENCY. 5) LEFT VENTRICULAR DIASTOLIC DYSFUNCTION. 6) MILDLY DILATED LEFT VENTRICLE. 7) MODERATE DILATED RIGHT SIDED CHAMBERS. 8) LEFT VENTRICULAR DIASTOLIC DYSFUNCTION. The left ventricle is visualized and demonstrated severe global left ventricular hypokinesia. Ejection fraction between 15 and 20%. The left ventricle is mild to moderately dilated. The left ventricular thickness is normal. The mitral valve is seen and has a low flow characteristic. There is mild to moderate mitral regurgitation. Left atrium is mildly enlarged. The aortic valve is trileaflet and opens well. The right side chambers are mild to moderately dilated. There is severe tricuspid regurgitation. The right ventricular systolic pressure of 38 mm of Mercury. There is also mild pericardial effusion. Tissue Doppler study of the lateral mitral annulus suggestive of left ventricular diastolic dysfunction.
[2019-04-09] MEDS: ENOXAPARIN SODIUM SQ SCH (12:53)
[2019-04-09] MEDS: Toprol-Xl 25MG Tablets PO SCH (12:53)
[2019-04-09] MEDS: PROVENTIL COMMON CANISTER IH SCH ×3 (15:19→19:10)
[2019-04-10] MEDS ORDERED: PROVENTIL COMMON CANISTER IH PRN (03:18)
[2019-04-10] MEDS: Sodium Chloride 0.9% 10 ML FLUSH Syringe IV SCH ×3 (05:18→22:13)
[2019-04-10 05:49] LABS: ALBUMIN 3.3 g/dL (3.5-5.0); ANION GAP 14.1 MEQ/L (5-15); Calcium 9.3 mg/dL (8.4-10.2); Creatinine 1 1.13 mg/dL (0.52-1.04); PHOSPHOROUS 3.6 mg/dL (2.5-4.5); Potassium 3.9 mmol/L (3.5-5.1); Risk Ratio 3.2
[2019-04-10 05:50] LABS: ALBUMIN 3.4 g/dL (3.5-5.0); ANION GAP 12.8 MEQ/L (5-15); BILIRUBIN,TOTAL 0.3 mg/dL (0.2-1.3); Creatinine 1 1.08 mg/dL (0.52-1.04); Potassium 3.6 mmol/L (3.5-5.1); Total Protein 6.4 g/dL (6.3-8.2)
[2019-04-10 05:54] LABS: TROPONIN 0.198 ng/mL (0.000-0.034)
[2019-04-10 05:59] LABS: Absolute Neutrophil Ct (ANC) 9.28 (1.4-6.9); BASOPHIL % 0.1 % (0.0-0.4); Basophil (Absolute #) 0.02 (0-0.4); Eosinophil % 0.7 % (0.00-5.0); Hemoglobin 12.4 gm/dl (12.0-16.0); Lymphocytes % 27.5 % (24.0-44.0); Mean Cell Volume 93.2 fl (78-100); Mean Corpuscular Hemoglobin 28.9 pg (26-32); Mean Platelet Volume 10.8 fl (6-9.5); Monocyte (Absolute #) 1.13 (0.0-1.3); Monocytes % 7.8 % (0.0-12.0); Neutrophil % 63.9 % (36.0-66.0); Platelet Count 358 K/mm3 (150-450); Red Blood Count 4.29 M/mm3 (4.1-5.4); Red Cell Distribution Width 16.1 % (11.5-14.0); White Blood Count 14.5 K/mm3 (4.0-10.5)
[2019-04-10] MEDS: OXYCODONE-ACETAMINOPHEN 10-325 PO PRN ×3 (06:47→22:27)
[2019-04-10] MEDS: ENOXAPARIN SODIUM SQ SCH (09:06)
[2019-04-10] MEDS: Toprol-Xl 25MG Tablets PO SCH (09:07)
[2019-04-10] MEDS: BUMEX 1 MG IV SCH ×2 (09:07→22:12)
[2019-04-10] MEDS: CLARITIN 10 MG PO SCH (09:07)
[2019-04-10] MEDS: Singulair 10 MG PO SCH (09:08)
[2019-04-10] MEDS: XANAX 1 MG PO SCH (09:08)
[2019-04-10] MEDS: ENTRESTO 49 MG-51 MG TABLET PO SCH ×2 (09:11→22:29)
[2019-04-10] MEDS: Protonix 40MG Tablet PO SCH ×2 (09:11→22:12)
[2019-04-10] MEDS: THEOPHYLLINE ER 24HR PO SCH (09:28)
[2019-04-10] MEDS: DELTASONE 20 MG PO SCH (09:40)
[2019-04-10] MEDS ORDERED: Toprol-Xl 25MG Tablets PO ONE (12:30)
[2019-04-10] MEDS: ECOTRIN 81 MG PO SCH (14:05)
[2019-04-10] MEDS: ZOCOR 20MG PO SCH (22:12)
[2019-04-10] MEDS ORDERED: Mylicon 80MG PO PRN (22:21)
[2019-04-11] MEDS: Sodium Chloride 0.9% 10 ML FLUSH Syringe IV SCH ×3 (04:41→22:37)
[2019-04-11] MEDS: OXYCODONE-ACETAMINOPHEN 10-325 PO PRN ×4 (04:43→19:38)
[2019-04-11 04:56] LABS: Absolute Neutrophil Ct (ANC) 10.57 (1.4-6.9); BASOPHIL % 0.3 % (0.0-0.4); Basophil (Absolute #) 0.04 (0-0.4); Eosinophil % 0.7 % (0.00-5.0); Hematocrit 45.6 % (35-47); Lymphocyte (Absolute #) 2.74 (1.0-4.6); Lymphocytes % 18.4 % (24.0-44.0); Mean Cell Volume 92.1 fl (78-100); Mean Corpuscular Hemoglobin 28.3 pg (26-32); Mean Corpuscular Hgb Concent. 30.7 g/dl (32-36); Mean Platelet Volume 10.5 fl (6-9.5); Monocyte (Absolute #) 1.42 (0.0-1.3); Monocytes % 9.5 % (0.0-12.0); Neutrophil % 71.1 % (36.0-66.0); Platelet Count 393 K/mm3 (150-450); Red Blood Count 4.95 M/mm3 (4.1-5.4); Red Cell Distribution Width 15.3 % (11.5-14.0); White Blood Count 14.9 K/mm3 (4.0-10.5)
[2019-04-11 05:02] LABS: ALBUMIN 3.4 g/dL (3.5-5.0); ALKALINE PHOSPHATASE 77 U/L (38-126); ANION GAP 10.7 MEQ/L (5-15); BLOOD UREA NITROGEN 28 mg/dL (7-17); CHLORIDE 94 mmol/L (98-107); Calcium 8.7 mg/dL (8.4-10.2); Carbon Dioxide 38 mmol/L (22-30); Creatinine 1 0.93 mg/dL (0.52-1.04); Glucose 70 mg/dL (74-106); SGOT/AST 34 U/L (14-36); SGPT/ALT 98 U/L (0-35); SODIUM 140 mmol/L (137-145); Total Protein 6.4 g/dL (6.3-8.2)
[2019-04-11 05:07] LABS: Potassium 2.9 mmol/L (3.5-5.1)
[2019-04-11] MEDS ORDERED: Sodium Chloride 0.9% 1000 ML 1,000 ML IV SCH (05:30)
[2019-04-11] MEDS: POTASSIUM CHLORIDE 20 mEq IN WATER 100ML 20 MEQ/100 ML BAG IV SCH ×2 (05:33→07:28)
[2019-04-11] MEDS: DELTASONE 20 MG PO SCH (09:16)
[2019-04-11] MEDS: Toprol Xl 50 MG PO SCH (09:16)
[2019-04-11] MEDS: BUMEX 1 MG IV SCH (09:16)
[2019-04-11] MEDS: Singulair 10 MG PO SCH (09:17)
[2019-04-11] MEDS: ENTRESTO 49 MG-51 MG TABLET PO SCH ×2 (09:17→22:26)
[2019-04-11] MEDS: XANAX 1 MG PO SCH (09:17)
[2019-04-11] MEDS: CLARITIN 10 MG PO SCH (09:17)
[2019-04-11] MEDS: Protonix 40MG Tablet PO SCH ×2 (09:17→22:26)
[2019-04-11] MEDS: ENOXAPARIN SODIUM SQ SCH (09:17)
[2019-04-11] MEDS: ECOTRIN 81 MG PO SCH (09:17)
[2019-04-11] MEDS: THEOPHYLLINE ER 24HR PO SCH (09:18)
[2019-04-11] MEDS: BUMEX 1 MG PO SCH ×2 (09:23→22:26)
--- NOTE | 2019-04-11 09:47 | XRAY ---
Indication: CHF. Hypoxia. Comparison: April 08, 2019. Portable chest improved with clearing of previous bibasilar effusions, diminished cardiomegaly, and diminished pulmonary edema. Stable COPD, left apical masslike opacity, and left Port-A-Cath. No new cardiopulmonary abnormalities.
[2019-04-11] MEDS ORDERED: ENTRESTO 49 MG-51 MG TABLET PO ONE (12:00)
[2019-04-11] MEDS: Klor Con 10 MEQ PO SCH (15:07)
[2019-04-11] MEDS: ZOCOR 20MG PO SCH (22:26)
[2019-04-12] MEDS: Sodium Chloride 0.9% 10 ML FLUSH Syringe IV SCH (06:22)
[2019-04-12] MEDS: OXYCODONE-ACETAMINOPHEN 10-325 PO PRN (07:58)
--- NOTE | 2019-04-12 09:26 | DS ---
DISCHARGE DIAGNOSES: 1) CARDIOMYOPATHY. 2) MASSES IN THE LUNGS CONCERNING FOR MALIGNANCY. HOSPITAL COURSE: The patient is a 53 year-old white female seen in consultation by Dr. Rhodes and Dr. Paige during her stay. The patient has a long history of chronic obstructive pulmonary disease issues with asthma component. The patient is steroid dependent and very hard to break when she comes in. The patient was seen in the hospital emergency room for increasing shortness of breath. She was found to be quite edematous and found to be in heart failure. She was admitted to the hospital for evaluation performed that revealed an ejection fraction of 15%. She was seen in consultation by cardiology. The patient was known to have elevated troponins during her stay and had reached a high of 0.19. They have been decreasing on trending but continued to be elevated. The roughing mill operator is aware of her issues. He suggested that she have a LifeVest which was provided for the patient prior to her discharge home. After diuresing with Bumex the patient was feeling much although her overall outlook is poor due to her extremely low ejection fraction which is felt to likely be secondary to possible viral cardiomyopathy versus atherosclerotic heart disease. However at this point the patient's roughing mill operator feels the patient is too weak to perform cardiac catheterization and at the current time he has placed her on Entresto and beta blockers to help control her heart rate. The patient will be discharged home at this point on Entresto and beta blockers. She will be on her usual home medications otherwise of Albuterol, Alprazolam, loratadine, Montelukast, omeprazole, oxycodone for pain and theophylline. The patient will also be see in follow up with Dr. Rhodes. 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 The patient does not desire to do any further work up in this regards and has been fairly noncompliant on her visits to our office and also having left other facilities AMA previously due to her lack of interest in having further care. She will be seen in my office in one week for follow up. She has appointments also at this time to follow up with her roughing mill operator and pulmonary physicians.
[2019-04-12] MEDS: ENOXAPARIN SODIUM SQ SCH (10:09)
[2019-04-12] MEDS: Protonix 40MG Tablet PO SCH (10:09)
[2019-04-12] MEDS: CLARITIN 10 MG PO SCH (10:09)
[2019-04-12] MEDS: DELTASONE 20 MG PO SCH (10:09)
[2019-04-12] MEDS: XANAX 1 MG PO SCH (10:10)
[2019-04-12] MEDS: Klor Con 10 MEQ PO SCH (10:10)
[2019-04-12] MEDS: Singulair 10 MG PO SCH (10:10)
[2019-04-12] MEDS: BUMEX 1 MG PO SCH (10:10)
[2019-04-12] MEDS: Toprol Xl 50 MG PO SCH (10:11)
[2019-04-12] MEDS: ECOTRIN 81 MG PO SCH (10:11)
[2019-04-12] MEDS: ENTRESTO 49 MG-51 MG TABLET PO SCH (10:11)
[2019-04-12] MEDS: THEOPHYLLINE ER 24HR PO SCH (10:43)
[2019-04-12 11:44] VITALS: BP 112/75; PULSE 106; O2SAT 93
== END 2019-04-12 13:21 | disposition home or self-care (01) | DRG 315 ==
LOC: ED 10:55 → MED SURG 14:39 → OBSVTOIN 17:31
PROVIDERS: ADMIT Family Medicine; ATTEND Family Medicine
DX: I42.9 Cardiomyopathy, unspecified (principal); L03.115 Cellulitis of right lower limb; R91.8 Other nonspecific abnormal finding of lung field; J44.9 Chronic obstructive pulmonary disease, unspecified; F17.200 Nicotine dependence, unspecified, uncomplicated; R79.1 Abnormal coagulation profile; I11.0 Hypertensive heart disease with heart failure; J84.10 Pulmonary fibrosis, unspecified
CPT/HCPCS: 36000; 36415; 36600; 71045; 71260; 80053; 80061; 80069; 80198; 82375; 82803; 83605; 83721; 83880; 84132; 84484; 85025; 85379; 85610; 93005; 93041; 93306; 93970; 94760; 96374; 96375; 99285; 99291; J1642; J1650; J1940; J2060; J2405; J3480; A9270-GY

== ENCOUNTER 2019-06-01 22:13 | Emergency (ER) | payer MEDICARE ==
[2019-06-01] MEDS ORDERED: XYLOCAINE 1% HCL 20 ML MDV IJ ONE (22:14)
--- NOTE | 2019-06-01 23:03 | ERPHSYRPT ---
- History of Present Illness Time Seen by Provider: 06/01/19 23:03 Source: patient Patient Subjective Stated Complaint: pt to ER with complaints of redness/ swelling in R ankle/foot since last night. Triage Nursing Assessment: pt to ER with R ankle/foot swelling/redness. pt was just on abx for cellulitis in R knee. Physician History: Pt is here with c/c of right ankle and foot swelling and redness for 3 days and much sorse in the last 24 hours. Pt's son brought her here today. Pt notes that she had a recent cellulitis in her right knee and is just off of antibiotic for that. Pt is unaware of any injury to her right foot. She states taht she did wear a boot but that is all she can think of that could have irritated the foot. Pt states taht she feels that it looks like a spider bite, but pt does not report to have seen a spider at any point around her foot. Pt then says that she had planned on waiting until Monday and just calling her doctor but everyone who saw it told her she needed to be seen somewhere sooner. Pt then asks after I looked at it if it would be okay to wait to have it treated until Monday. Pt 's son had kids with him and was wanting to leave. I told the pt that based on how her foot looked that she should have her foot treated before she left. Timing/Duration: day(s) (3) Severity: moderate Modifying Factors: Improves With: movement Associated Symptoms: rash Allergies/Adverse Reactions: No Known Drug Allergies Allergy (Verified 06/01/19 22:59) Home Medications: Albuterol Sulfate [Albuterol Sulfate Hfa] 8.5 gm IH TID 08/29/16 [History] Alprazolam 1 mg [Xanax 1 mg] 1 mg PO DAILY 08/29/16 [History] Montelukast Sodium [Singulair] 10 mg PO DAILY 08/29/16 [History] Albuterol Sulfate [Ventolin Hfa] 8 gm IH UD 05/16/17 [History] Oxycodone HCl/Acetaminophen [Percocet 10-325 mg Tablet] 1 each PO Q4HPRN PRN 05/21 [History] Theophylline Anhydrous [Theophylline] 400 mg PO DAILY 05/16/17 [History] Omeprazole Magnesium [Prilosec Otc] 40 mg PO BID 03/23/19 [History] Loratadine 10 mg PO DAILY 04/08/19 [History] Hx Tetanus, Diphtheria Vaccination/Date Given: Yes Hx Influenza Vaccination/Date Given: No Hx Pneumococcal Vaccination/Date Given: No Immunizations Up to Date: Yes - Review of Systems Constitutional: No Symptoms Eyes: No Symptoms Ears, Nose, & Throat: No Symptoms Respiratory: No Symptoms, Dyspnea (has COPD and CHF) Cardiac: Edema (hx of CHF but minimal swelling with erythematous right foot) Abdominal/Gastrointestinal: No Symptoms Genitourinary Symptoms: No Symptoms Musculoskeletal: Arthralgias, Joint Pain, Myalgias Skin: Cellulitis Neurological: No Symptoms, Gait Changes, No Dizziness Psychological: No Symptoms All Other Systems: Reviewed and Negative - Past Medical History Pertinent Past Medical History: Yes Neurological History: No Pertinent History ENT History: No Pertinent History Cardiac History: Hypertension Respiratory History: Asthma, Bronchitis, COPD, Emphysema, Pneumonia Endocrine Medical History: No Pertinent History Musculoskeletal History: No Pertinent History, Other GI Medical History: GERD, Hernia History: No Pertinent History Psycho-Social History: Depression Female Reproductive Disorders: No Pertinent History Other Medical History: RT shoulder Bursitis- torn rotator cuff and bone tumor. COPD. Smoker. bone tumor - Past Surgical History Past Surgical History: Yes Neuro Surgical History: No Pertinent History Cardiac: No Pertinent History Respiratory: No Pertinent History Gastrointestinal: No Pertinent History Genitourinary: No Pertinent History Musculoskeletal: No Pertinent History Female Surgical History: Tubal Ligation Other Surgical History: G-TUBE intubated. CHEST TUBE x2. CARPAL TUNNEL. cvl port poor iv access. tracheostomy - Social History Smoking Status: Current every day smoker How long have you smoked: 30 Exposure to second hand smoke: Yes Alcohol Use: Socially Drug Use: none Patient Lives Alone: No Significant Family History: no pertinent family hx - Female History Hx Now: No - Nursing Vital Signs Nursing Vital Signs: Initial Vital Signs Temperature 97.8 F 06/01/19 22:50 Pulse Rate 87 06/01/19 22:50 Respiratory Rate 17 06/01/19 22:50 Blood Pressure 152/92 06/01/19 22:50 O2 Sat by Pulse Oximetry 98 06/01/19 22:50 Pain Scale Pain Intensity 6 - Physical Exam General Appearance: no apparent distress, alert Eye Exam: PERRL/EOMI, eyes nml inspection, No photophobia Ears, Nose, Throat Exam: normal ENT inspection (grossly) Neck Exam: normal inspection Respiratory Exam: normal breath sounds, diminished breath sounds Cardiovascular Exam: regular rate/rhythm, normal heart sounds, normal peripheral pulses, capillary refill 2-3 sec, edema, No murmur, No friction rub, No tachycardia, No pulse deficit Gastrointestinal/Abdomen Exam: soft, normal bowel sounds, No tenderness, No distention Pelvic Exam: not done Rectal Exam: not done Back Exam: normal inspection, normal range of motion Extremity Exam: normal range of motion, joint swelling (right knee is mildly erythematous and warm and mildly tender as if it still has some infection in the right knee.), pedal edema, swelling, tenderness (right foot is swollen and erythematous and tender to touch with 2 areas that are raised and appear that they are variacosities.) Neurologic Exam: alert, oriented x 3, cooperative, exercise planner II-XII nml as tested, normal mood/affect, nml cerebellar function, sensation nml, No motor deficits, No sensory deficit, No confusion, No agitation, No uncooperative, No motor weakness, No facial droop, No slurred speech Skin Exam: warm (erythematous and tender and swollen on the right foot to the ankle.) SpO2 Interpretation: normal SpO2: 98 O2 Delivery: Room Air Ordered Tests: Active Orders 24 hr Category Date Time Status FOOT (2 VIEWS) Stat Exams 06/02/19 01:11 Taken Medication Summary Discontinued Medications Generic Name Dose Route Start Last Admin Trade Name Ronalq PRN Reason Stop Dose Admin Ceftriaxone Sodium 1,000 mg 06/01/19 23:48 06/02/19 00:02 Rocephin 1000 Mg Inj IM 06/01/19 23:49 1,000 mg STAT ONE Administration Ceftriaxone Sodium Confirm 06/01/19 23:59 Rocephin 1000 Mg Inj Administered 06/02/19 00:00 Dose 1,000 mg .ROUTE .STK-MED ONE Enoxaparin Sodium 50 mg 06/02/19 00:45 Enoxaparin Sodium 1 mg/kg (50 mg) 07/02/19 00:44 SQ Q12H MORALES Enoxaparin Sodium Confirm 06/02/19 00:50 Enoxaparin Sodium Administered 06/02/19 00:51 Dose 60 mg SQ .STK-MED ONE Lab/Rad Data: Laboratory Result Diagrams 06/01/19 00:20 06/01/19 00:20 Laboratory Results 06/01/19 06/01/19 06/01/19 Range/Units 00:20 00:20 00:20 WBC 8.3 (4.0-10.5) K/mm3 RBC 4.88 (4.1-5.4) M/mm3 Hgb 14.1 (12.0-16.0) gm/dl Hct 43.6 (35-47) % MCV 89.3 (78-100) fl MCH 28.9 (26-32) pg MCHC 32.3 (32-36) g/dl RDW 16.0 H (11.5-14.0) % Plt Count 235 (150-450) K/mm3 MPV 10.5 H (6-9.5) fl Gran % 64.2 (36.0-66.0) % Eos # (Auto) 0.33 (0-0.5) Absolute Lymphs (auto) 1.92 (1.0-4.6) Absolute Monos (auto) 0.72 (0.0-1.3) Lymphocytes % 23.0 L (24.0-44.0) % Monocytes % 8.6 (0.0-12.0) % Eosinophils % 4.0 (0.00-5.0) % Basophils % 0.2 (0.0-0.4) % Absolute Granulocytes 5.35 (1.4-6.9) Basophils # 0.02 (0-0.4) D-Dimer 614 H* (215-500) ng/mL Sodium 140 (137-145) mmol/L Potassium 3.6 (3.5-5.1) mmol/L Chloride 100 (98-107) mmol/L Carbon Dioxide 31 H (22-30) mmol/L Anion Gap 12.2 (5-15) MEQ/L BUN 6 L (7-17) mg/dL Creatinine 0.81 (0.52-1.04) mg/dL Estimated GFR > 60.0 ML/MIN Glucose 63 L (74-106) mg/dL Calcium 9.9 (8.4-10.2) mg/dL - Progress Progress: unchanged Progress Note: 06/02/19 07:42 Pt x-ray revealed no fractures or abnormalities. There was soft tissue swelling present. Pt received a Rocephin shot and then left prior to getting her lovenox injection. We did get her scheduled for a Venous Duplex on Mon at 3:00 pm. I had told the pt that there would be Lovenox injections and she had agreed. Pt was getting worried because her son was her only ride and she felt that he needed to leave. He was texting her from the waiting room. Apparently he had kids here with him. 06/02/19 07:45 - Departure Departure Disposition: Home Clinical Impression: Cellulitis Condition: Stable Critical Care Time: No Referrals: SUSANA CUEVAS [Primary Care Provider] - Additional Instructions: Please take your antibiotics as prescribed and you may take Iuprofen 200 mgs 2 every 4-6 hours as needed for pain. Follow up with your Primary care doctor in the next 2-5 days. Return to the ER with emergent medical problems. You will also need to give yourself Lovenox injections for 50 mgs every 12 hours until you come back for a venous duplex of the right lower extremity on Monday at 3: 00. The shots are to be given subcutaneously or in the abdominal superficial fat. Prescriptions: Cephalexin Mh 500 mg [Keflex 500 mg] 500 mg PO Q8H #30 capsule Enoxaparin Sodium [Lovenox] 50 mg SQ Q12H 2 Days #3 ml
[2019-06-01] MEDS ORDERED: Rocephin 1000 MG INJ IM ONE (23:48)
[2019-06-01] MEDS ORDERED: Rocephin 1000 MG INJ ONE (23:59)
[2019-06-02 00:06] VITALS: BP 125/77; PULSE 87
[2019-06-02 00:27] LABS: Absolute Neutrophil Ct (ANC) 5.35 (1.4-6.9); BASOPHIL % 0.2 % (0.0-0.4); Basophil (Absolute #) 0.02 (0-0.4); Eosinophil (Absolute #) 0.33 (0-0.5); Hematocrit 43.6 % (35-47); Hemoglobin 14.1 gm/dl (12.0-16.0); Lymphocyte (Absolute #) 1.92 (1.0-4.6); Mean Cell Volume 89.3 fl (78-100); Mean Corpuscular Hemoglobin 28.9 pg (26-32); Mean Corpuscular Hgb Concent. 32.3 g/dl (32-36); Mean Platelet Volume 10.5 fl (6-9.5); Monocyte (Absolute #) 0.72 (0.0-1.3); Monocytes % 8.6 % (0.0-12.0); Neutrophil % 64.2 % (36.0-66.0); Platelet Count 235 K/mm3 (150-450); Red Blood Count 4.88 M/mm3 (4.1-5.4); White Blood Count 8.3 K/mm3 (4.0-10.5)
[2019-06-02 00:33] LABS: ANION GAP 12.2 MEQ/L (5-15); BLOOD UREA NITROGEN 6 mg/dL (7-17); CHLORIDE 100 mmol/L (98-107); Calcium 9.9 mg/dL (8.4-10.2); Carbon Dioxide 31 mmol/L (22-30); Creatinine 1 0.81 mg/dL (0.52-1.04); Glucose 63 mg/dL (74-106); Potassium 3.6 mmol/L (3.5-5.1); SODIUM 140 mmol/L (137-145)
[2019-06-02 00:37] VITALS: O2SAT 98
[2019-06-02] MEDS ORDERED: ENOXAPARIN SODIUM SQ SCH (00:45)
[2019-06-02] MEDS ORDERED: ENOXAPARIN SODIUM SQ ONE (00:50)
--- NOTE | 2019-06-02 09:39 | XRAY ---
Indication: Pain and swelling 3 days. No known injury. Comparison: None 2 nonweightbearing views of the right foot demonstrates mild diffuse soft tissue swelling/edema. No other bony, articular, or soft tissue abnormalities.
== END 2019-06-02 01:06 | disposition home or self-care (01) ==
LOC: ED 22:13
DX: L03.115 Cellulitis of right lower limb (principal)
CPT/HCPCS: 36415; 73620; 80048; 85025; 85379; 96372; 99284; J0696; J1650

== ENCOUNTER 2019-06-06 17:17 | Observation (INO) | payer MEDICARE ==
[2019-06-06] MEDS ORDERED: Sodium Chloride 0.9% 10 ML FLUSH Syringe IV PRN (17:30)
[2019-06-06 19:47] LABS: Hematocrit 43.5 % (35-47); Hemoglobin 13.8 gm/dl (12.0-16.0); Mean Cell Volume 89.7 fl (78-100); Mean Corpuscular Hemoglobin 28.5 pg (26-32); Mean Corpuscular Hgb Concent. 31.7 g/dl (32-36); Mean Platelet Volume 10.3 fl (6-9.5); Platelet Count 285 K/mm3 (150-450); Red Blood Count 4.85 M/mm3 (4.1-5.4); Red Cell Distribution Width 16.3 % (11.5-14.0); White Blood Count 9.8 K/mm3 (4.0-10.5)
[2019-06-06] MEDS: DUONEB 0.5-3 MG/3 ml Neb IH SCH ×2 (19:52→23:15)
[2019-06-06 19:58] LABS: ANION GAP 15.6 MEQ/L (5-15); BLOOD UREA NITROGEN 6 mg/dL (7-17); CHLORIDE 102 mmol/L (98-107); Calcium 9.6 mg/dL (8.4-10.2); Carbon Dioxide 25 mmol/L (22-30); Creatinine 1 0.75 mg/dL (0.52-1.04); Glucose 105 mg/dL (74-106); Potassium 4.1 mmol/L (3.5-5.1); SODIUM 139 mmol/L (137-145)
[2019-06-06 21:02] LABS: INFLUENZA A NEGATIVE (NEGATIVE); INFLUENZA B NEGATIVE (NEGATIVE); RESPIRATORY SYNCTIAL VIRUS NEGATIVE (Negative)
[2019-06-06] MEDS: Nicoderm CQ 21 MG TOP PRN (22:55)
[2019-06-06] MEDS: Protonix 40MG Tablet PO SCH (22:56)
[2019-06-06] MEDS: ROCEPHIN 1 Gm-D5w 50 ml Bag** 1 G/50 ML IVPB IV SCH (22:56)
[2019-06-06] MEDS: OXYCODONE-ACETAMINOPHEN 10-325 PO PRN (22:56)
[2019-06-06] MEDS: ENTRESTO 49 MG-51 MG TABLET PO SCH (22:56)
[2019-06-06] MEDS: Sodium Chloride 0.9% 10 ML FLUSH Syringe IV SCH (22:57)
[2019-06-06] MEDS: solu-MEDROL 125 MG IV SCH (22:57)
[2019-06-07] MEDS: solu-MEDROL 125 MG IV SCH ×4 (00:17→18:26)
[2019-06-07] MEDS: DUONEB 0.5-3 MG/3 ml Neb IH SCH (03:40)
[2019-06-07] MEDS: OXYCODONE-ACETAMINOPHEN 10-325 PO PRN ×4 (04:26→20:53)
[2019-06-07] MEDS: Sodium Chloride 0.9% 10 ML FLUSH Syringe IV SCH ×3 (06:11→20:53)
[2019-06-07] MEDS ORDERED: PROVENTIL 2.5 MG/3 ML NEB IH PRN (07:19)
--- NOTE | 2019-06-07 08:43 | XRAY ---
Indication: Cough. COPD exacerbation. Comparison: April 11, 2019. PA/lateral chest demonstrates stable COPD, a few calcified granulomas, biapical pleural thickening/scarring, left apical masslike opacity, and left Port-A-Cath. No focal infiltrate, consolidation, or large effusion. Heart and mediastinal structures within normal limits. Bony thorax intact again with mild degenerative changes. Impression: Nonacute hyperinflated chest with chronic features.
--- NOTE | 2019-06-07 09:02 | XRAY ---
Indication: DVT. Two-dimensional sonogram and color Doppler imaging of the major venous vessels of the right leg was performed. Comparison: April 09, 2019. Again no thrombus seen in the examined deep venous vessels of the right leg including greater saphenous vein. Veins demonstrate normal compressibility. Venous waveforms are normal with and without augmentation. Impression: Right leg again negative for DVT. Comment: Preliminary report was given.
[2019-06-07] MEDS: xanAX 0.5 MG PO PRN (09:41)
[2019-06-07] MEDS: Protonix 40MG Tablet PO SCH ×2 (09:42→20:52)
[2019-06-07] MEDS: ENTRESTO 49 MG-51 MG TABLET PO SCH ×2 (09:42→20:53)
[2019-06-07] MEDS: ROCEPHIN 1 Gm-D5w 50 ml Bag** 1 G/50 ML IVPB IV SCH (09:42)
[2019-06-07] MEDS: Zithromax 500 MG/ 250 ML NaCl Premix 500 MG/250 ML IVPB IV SCH (09:42)
[2019-06-07] MEDS: CLARITIN 10 MG PO SCH (12:53)
[2019-06-07] MEDS: Toprol Xl 50 MG PO SCH (12:53)
[2019-06-07] MEDS: Singulair 10 MG PO SCH (12:53)
[2019-06-07] MEDS: THEOPHYLLINE ER 24HR PO SCH (12:53)
[2019-06-07] MEDS: Nicoderm CQ 21 MG TOP PRN (15:55)
--- NOTE | 2019-06-07 19:30 | PCM.NOTE ---
Date and Time: 06/07/191925 Subjective Assessment: Pt. notes severe pain of the lesions, mild decrease in redness and swelling noted per patient. - Review of Systems Constitutional: No Symptoms Respiratory: No Symptoms Cardiac: No Symptoms Abdominal/Gastrointestinal: No Symptoms Genitourinary Symptoms: No Symptoms Musculoskeletal: No Symptoms Skin: Cellulitis, Skin Lesions Objective Exam General Appearance: no apparent distress Neurologic Exam: alert Skin Exam: normal color (2 ulcerated and capped lesions on the medial aspect of right ankle, pt. notes very tender to touch, mild swelling about the lesions and in ankle region. normal dp pulse, normal rom) Wound Assessment: Skin/Wound Assessment Wound/Incision Assessment Start: 06/06/19 21: 05 Text: Status: Active Freq: Q6H Protocol: Document 06/07/19 15:00 CD (Rec: 06/07/19 18:24 CD [id number]) Wound/Incision Assessment Right Foot Wound Assessment Shift Assessment Wound Type cellulitis Wound Stage Non Pressure Wound Drainage Amount None General Appearance Reddened Comment open to air. PT in and took wound culture. See Physical therapy note. Wound Photo Photo Taken Yes Date: 06/06/19 Time: 20:00 Comment: Placed on chart Ears, Nose, Throat Exam: normal ENT inspection Respiratory Exam: normal breath sounds, prolonged expirations Cardiovascular Exam: regular rate/rhythm OBJECTIVE DATA Vital Signs: Vital Signs - 24 hr Temp Pulse Resp BP Pulse Ox 06/07/19 16:00 97.9 F 89 20 138/75 97 06/07/19 11:50 97.8 F 89 18 125/79 94 L 06/07/19 08:00 98 F 98 H 18 124/71 93 L 06/07/19 07:20 93 L 06/07/19 04:00 98.3 F 83 20 138/76 96 06/07/19 00:00 98.1 F 86 16 135/78 95 06/06/19 20:34 97 06/06/19 20:30 98.5 F 91 H 20 159/91 96 Pain Assessment - Last Documented Pain Intensity 5 Pain Scale Used 0-10 Pain Scale Intake and Output: Intake & Output 06/05/19 06/06/19 06/07/19 06/08/19 11:59 11:59 11:59 11:59 Intake Total 1840 1620 Balance 1840 1620 Weight 50.9 kg Lab Results: Lab Results-Last 24 Hours 06/06/19 06/06/19 06/06/19 Range/Units 19:30 19:30 Unknown WBC 9.8 (4.0-10.5) K/mm3 RBC 4.85 (4.1-5.4) M/mm3 Hgb 13.8 (12.0-16.0) gm/dl Hct 43.5 (35-47) % MCV 89.7 (78-100) fl MCH 28.5 (26-32) pg MCHC 31.7 L (32-36) g/dl RDW 16.3 H (11.5-14.0) % Plt Count 285 (150-450) K/mm3 MPV 10.3 H (6-9.5) fl Sodium 139 (137-145) mmol/L Potassium 4.1 (3.5-5.1) mmol/L Chloride 102 (98-107) mmol/L Carbon Dioxide 25 (22-30) mmol/L Anion Gap 15.6 H (5-15) MEQ/L BUN 6 L (7-17) mg/dL Creatinine 0.75 (0.52-1.04) mg/dL Estimated GFR > 60.0 ML/MIN Glucose 105 (74-106) mg/dL Calcium 9.6 (8.4-10.2) mg/dL Influenza Type A Ag NEGATIVE (NEGATIVE) Influenza Type B Ag NEGATIVE (NEGATIVE) RSV (PCR) NEGATIVE (Negative) Radiology Exams: Radiology Procedures Category Date Time Status CHEST 2 VIEWS (PA AND LAT) Stat Exams 06/06/19 19:00 Completed VENOUS UNILAT/LIMITED EXTREMIT [US] Stat Exams 06/06/19 19:03 Completed Multi-Disciplinary Progress Notes: Multi-Disciplinary Progress Notes 06/07/19 14:13 Case Management Note by Charisma Stone SPOKE WITH PT REGARDING NEEDS AT DISCHARGE. PT DENIES NEEDS AT THIS TIME. PLANS TO RETURN HOME AT DISCHARGE. Initialized on 06/07/19 14:13 - END OF NOTE Assessment/Plan (1) Cellulitis and abscess of foot Current Visit: No Status: Acute Assessment & Plan: PT. to evaluate and treat the wounds obtaining wound cultures today, continue antibiotics Code(s): L03.119 - CELLULITIS OF UNSPECIFIED PART OF LIMB; L02.619 - CUTANEOUS ABSCESS OF UNSPECIFIED FOOT
[2019-06-08] MEDS: solu-MEDROL 125 MG IV SCH ×2 (00:38→05:54)
[2019-06-08] MEDS: xanAX 0.5 MG PO PRN (00:55)
[2019-06-08] MEDS: OXYCODONE-ACETAMINOPHEN 10-325 PO PRN ×2 (00:55→08:33)
[2019-06-08] MEDS: Sodium Chloride 0.9% 10 ML FLUSH Syringe IV SCH (05:55)
[2019-06-08 06:07] LABS: Hematocrit 38.5 % (35-47); Mean Cell Volume 91.2 fl (78-100); Mean Corpuscular Hemoglobin 28.4 pg (26-32); Mean Corpuscular Hgb Concent. 31.2 g/dl (32-36); Mean Platelet Volume 10.5 fl (7.5-11.0); Platelet Count 254 K/mm3 (150-450); Red Blood Count 4.22 M/mm3 (4.1-5.4); Red Cell Distribution Width 16.4 % (11.5-14.0); White Blood Count 19.7 K/mm3 (4.0-10.5)
--- NOTE | 2019-06-08 08:08 | PCM.NOTE ---
Date and Time: 06/08/19 08 Subjective Assessment: doing better - Review of Systems Constitutional: No Fever, No Chills Eyes: No Symptoms Ears, Nose, & Throat: No Symptoms Respiratory: No Cough, No Short Of Breath Cardiac: No Chest Pain, No Edema, No Syncope Abdominal/Gastrointestinal: No Abdominal Pain, No Nausea, No Vomiting, No Diarrhea Genitourinary Symptoms: No Dysuria Musculoskeletal: No Back Pain, No Neck Pain Skin: Cellulitis, No Rash Neurological: No Dizziness, No Focal Weakness, No Sensory Changes Psychological: No Symptoms Endocrine: No Symptoms Hematologic/Lymphatic: No Symptoms Immunological/Allergic: No Symptoms Objective Exam General Appearance: no apparent distress, alert Neurologic Exam: alert, oriented x 3, cooperative, normal mood/affect, nml cerebellar function, sensation nml, No motor deficits Skin Exam: normal color, warm, dry, other Wound Assessment: Skin/Wound Assessment Wound/Incision Assessment Start: 06/06/19 21: 05 Text: Status: Active Freq: Q6H Protocol: Document 06/08/19 03:00 AW (Rec: 06/08/19 03:45 AW [id number]) Wound/Incision Assessment Right Foot Wound Assessment Shift Assessment Wound Type cellulitis Wound Stage Non Pressure Wound Drainage Amount None General Appearance Reddened Comment open to air.. Wound Photo Photo Taken Yes Date: 06/06/19 Time: 20:00 Comment: Placed on chart Eye Exam: PERRL, EOMI, eyes nml inspection Ears, Nose, Throat Exam: normal ENT inspection, pharynx normal, moist mucous membranes Neck Exam: normal inspection, non-tender, supple, full range of motion Respiratory Exam: normal breath sounds, lungs clear, No respiratory distress Cardiovascular Exam: regular rate/rhythm, normal heart sounds Gastrointestinal/Abdomen Exam: soft, No tenderness, No mass Extremity Exam: normal inspection, normal range of motion Back Exam: normal inspection, normal range of motion, No CVA tenderness, No vertebral tenderness Pelvic Exam: deferred Rectal Exam: deferred OBJECTIVE DATA Vital Signs: Vital Signs - 24 hr Temp Pulse Resp BP Pulse Ox 06/08/19 04:00 97.6 F 72 20 122/78 98 06/08/19 00:00 97.4 F 77 20 129/71 98 06/07/19 20:00 97.4 F 88 20 135/76 98 06/07/19 16:00 97.9 F 89 20 138/75 97 06/07/19 11:50 97.8 F 89 18 125/79 94 L Pain Assessment - Last Documented Pain Intensity 4 Pain Scale Used 0-10 Pain Scale Intake and Output: Intake & Output 06/05/19 06/06/19 06/07/19 06/08/19 11:59 11:59 11:59 11:59 Intake Total 1840 1860 Balance 1839 1860 Weight 50.9 kg Lab Results: Lab Results-Last 24 Hours 06/08/19 Range/Units 05:50 WBC 19.7 H (4.0-10.5) K/mm3 RBC 4.22 (4.1-5.4) M/mm3 Hgb 12.0 (12.0-16.0) gm/dl Hct 38.5 (35-47) % MCV 91.2 (78-100) fl MCH 28.4 (26-32) pg MCHC 31.2 L (32-36) g/dl RDW 16.4 H (11.5-14.0) % Plt Count 254 (150-450) K/mm3 MPV 10.5 H (7.5-11.0) fl Radiology Exams: Radiology Procedures Category Date Time Status CHEST 2 VIEWS (PA AND LAT) Stat Exams 06/06/19 19:00 Completed VENOUS UNILAT/LIMITED EXTREMIT [US] Stat Exams 06/06/19 19:03 Completed Multi-Disciplinary Progress Notes: Multi-Disciplinary Progress Notes 06/07/19 14:13 Case Management Note by Charisma Stone SPOKE WITH PT REGARDING NEEDS AT DISCHARGE. PT DENIES NEEDS AT THIS TIME. PLANS TO RETURN HOME AT DISCHARGE. Initialized on 06/07/19 14:13 - END OF NOTE Assessment/Plan (1) Cellulitis and abscess of foot Current Visit: Yes Status: Acute Assessment & Plan: Last Vital Signs Temp 97.6 F 06/08/19 04:00 Pulse 72 06/08/19 04:00 Resp 20 06/08/19 04:00 BP 122/78 06/08/19 04:00 Pulse Ox 98 06/08/19 04:00 Allergies No Known Drug Allergies Allergy (Verified 06/01/19 22:59) Active Medications Albuterol Sulfate (Proventil 2.5 Mg/3 Ml Neb) 2.5 mg IH Q4H PRN PRN PRN Reason: SHORTNESS OF BREATH/WHEEZING Stop: 07/07/19 07:18 Alprazolam (Xanax 0.5 Mg) 0.5 mg PO DAILY PRN PRN PRN Reason: ANXIETY Stop: 07/06/19 21:25 Last Admin: 06/08/19 00:55 Dose: 0.5 mg Heparin Sodium (Beef Lung) (Heparin Lock Flush 100 Units/Ml 5ml Syringe) 500 units PORT FLUSH PRN PRN PRN Reason: IV PORT FLUSH Stop: 07/07/19 12:46 Ceftriaxone Sodium/Dextrose (Rocephin 1 Gm-D5w 50 Ml Bag) 1 g in 50 mls @ 100 mls/hr IV Q24H10 [facility] Stop: 07/06/19 17:59 Last Admin: 06/07/19 09:42 Dose: 100 mls/hr Azithromycin (Zithromax 500 Mg/ 250 Ml Nacl Premix) 500 mg in 250 mls @ 250 mls /hr IV Q24H10 [facility] Stop: 07/07/19 09:59 Last Admin: 06/07/19 09:42 Dose: 250 mls/hr Loratadine (Claritin 10 Mg) 10 mg PO DAILY [facility] Stop: 07/07/19 11:59 Last Admin: 06/07/19 12:53 Dose: 10 mg Methylprednisolone Sodium Succinate (Solu-Medrol 125 Mg) 60 mg IV Q6HT [facility] Stop: 07/06/19 17:59 Last Admin: 06/08/19 05:54 Dose: 60 mg Metoprolol Succinate (Toprol Xl 50 Mg) 50 mg PO DAILY [facility] Stop: 07/07/19 11:59 Last Admin: 06/07/19 12:53 Dose: 50 mg Montelukast Sodium (Singulair 10 Mg) 10 mg PO DAILY [facility] Stop: 07/07/19 11:59 Last Admin: 06/07/19 12:53 Dose: 10 mg Nicotine (Nicoderm Cq 21 Mg) 21 mg TOP QDP PRN Stop: 07/06/19 17:27 Last Admin: 06/07/19 15:55 Dose: 21 mg Oxycodone/Acetaminophen (Oxycodone-Acetaminophen 10-325) 1 tab PO Q4H PRN PRN PRN Reason: PAIN Stop: 06/11/19 21:28 Last Admin: 06/08/19 00:55 Dose: 1 tab Pantoprazole Sodium (Protonix 40mg Tablet) 40 mg PO BID [facility] Stop: 07/06/19 21:59 Last Admin: 06/07/19 20:52 Dose: 40 mg Sacubitril/Valsartan (Entresto 49 Mg-51 Mg Tablet) 1 tablet PO BID [facility] Stop: 07/06/19 21:59 Last Admin: 06/07/19 20:53 Dose: 1 tablet Sodium Chloride (Sodium Chloride 0.9% 10 Ml Flush Syringe) 10 ml IV Q8HT [facility] Stop: 07/06/19 21:59 Last Admin: 06/08/19 05:55 Dose: 10 ml Sodium Chloride (Sodium Chloride 0.9% 10 Ml Flush Syringe) 10 ml IV PRN PRN Stop: 07/06/19 17:29 Theophylline (Theophylline Er 24hr) 400 mg PO DAILY [facility] Stop: 07/07/19 11:59 Last Admin: 06/07/19 12:53 Dose: 400 mg Intake & Output 06/07/19 06/08/19 11:59 11:59 Intake Total 1840 1860 Balance 1840 1860 Weight 50.9 kg Lab Tests 06/08/19 05:50 WBC 19.7 H RBC 4.22 Hgb 12.0 Hct 38.5 MCV 91.2 MCH 28.4 MCHC 31.2 L RDW 16.4 H Plt Count 254 MPV 10.5 H Code(s): L03.119 - CELLULITIS OF UNSPECIFIED PART OF LIMB; L02.619 - CUTANEOUS ABSCESS OF UNSPECIFIED FOOT
[2019-06-08 08:54] VITALS: O2SAT 94
[2019-06-08] MEDS: Toprol Xl 50 MG PO SCH (10:22)
[2019-06-08] MEDS: Protonix 40MG Tablet PO SCH (10:22)
[2019-06-08] MEDS: Singulair 10 MG PO SCH (10:22)
[2019-06-08] MEDS: CLARITIN 10 MG PO SCH (10:22)
[2019-06-08] MEDS: ENTRESTO 49 MG-51 MG TABLET PO SCH (10:22)
[2019-06-08] MEDS: THEOPHYLLINE ER 24HR PO SCH (10:22)
[2019-06-08] MEDS: ROCEPHIN 1 Gm-D5w 50 ml Bag** 1 G/50 ML IVPB IV SCH (10:23)
[2019-06-08] MEDS: Zithromax 500 MG/ 250 ML NaCl Premix 500 MG/250 ML IVPB IV SCH (10:23)
--- NOTE | 2019-06-08 10:30 | PCM.DS ---
Discharge Summary Date of Admission: 06/06/19 18:33 Admitting Physician: CHIQUIS VARGAS MD Primary Care Provider: SUSANA CUEVAS Allergies Allergies No Known Drug Allergies Allergy (Verified 06/01/19 22:59) Hospital Summary - Hospital Course Hospital Course: Chief Complaint Diagnosis exacerbation COPD, cellulitis Allergies Allergy/AdvReac Type Severity Reaction Status Date / Time No Known Drug Allergies Allergy Verified 06/01/19 22:59 Vital Signs (Last 24 hours) Temp Pulse Resp BP Pulse Ox 06/08/19 08:00 97.8 F 75 16 124/74 94 L 06/08/19 04:00 97.6 F 72 20 122/78 98 06/08/19 00:00 97.4 F 77 20 129/71 98 06/07/19 20:00 97.4 F 88 20 135/76 98 06/07/19 16:00 97.9 F 89 20 138/75 97 06/07/19 11:50 97.8 F 89 18 125/79 94 L Current Medications Generic Name Dose Route Start Last Admin Trade Name Freq PRN Reason Stop Dose Admin Albuterol Sulfate 2.5 mg 06/07/19 07:19 Proventil 2.5 Mg/3 Ml Neb IH 07/07/19 07:18 Q4H PRN PRN SHORTNESS OF BREATH/WHEEZING Alprazolam 0.5 mg 06/06/19 21:26 06/08/19 00:55 Xanax 0.5 Mg PO 07/06/19 21:25 0.5 mg DAILY PRN PRN Administration ANXIETY Heparin Sodium (Beef Lung) 500 units 06/07/19 12:47 Heparin Lock Flush 100 Units/Ml 5ml Syringe PORT FLUSH 07/07/19 12:46 PRN PRN IV PORT FLUSH Ceftriaxone Sodium/Dextrose 1 g in 50 mls @ 100 mls/hr 06/06/19 18:00 09:42 Rocephin 1 Gm-D5w 50 Ml Bag IV 07/06/19 17:59 100 mls/hr Q24H10 [facility] Administration Azithromycin 500 mg in 250 mls @ 250 mls/hr 06/07/19 10:00 06/07/19 09:42 Zithromax 500 Mg/ 250 Ml Nacl Premix IV 07/07/19 09:59 250 mls/hr Q24H10 [facility] Administration Loratadine 10 mg 06/07/19 12:00 06/07/19 12:53 Claritin 10 Mg PO 07/07/19 11:59 10 mg DAILY [facility] Administration Methylprednisolone Sodium Succinate 60 mg 06/06/19 18:00 06/08/19 05:54 Solu-Medrol 125 Mg IV 07/06/19 17:59 60 mg Q6HT [facility] Administration Metoprolol Succinate 50 mg 06/07/19 12:00 06/07/19 12:53 Toprol Xl 50 Mg PO 07/07/19 11:59 50 mg DAILY [facility] Administration Montelukast Sodium 10 mg 06/07/19 12:00 06/07/19 12:53 Singulair 10 Mg PO 07/07/19 11:59 10 mg DAILY [facility] Administration Nicotine 21 mg 06/06/19 17:28 06/07/19 15:55 Nicoderm Cq 21 Mg TOP 07/06/19 17:27 21 mg QDP PRN Administration Oxycodone/Acetaminophen 1 tab 06/06/19 21:29 06/08/19 08:33 Oxycodone-Acetaminophen 10-325 PO 06/11/19 21:28 1 tab Q4H PRN PRN Administration PAIN Pantoprazole Sodium 40 mg 06/06/19 22:00 06/07/19 20:52 Protonix 40mg Tablet PO 07/06/19 21:59 40 mg BID [facility] Administration Sacubitril/Valsartan 1 tablet 06/06/19 22:00 06/07/19 20:53 Entresto 49 Mg-51 Mg Tablet PO 07/06/19 21:59 1 tablet BID [facility] Administration Sodium Chloride 10 ml 06/06/19 22:00 06/08/19 05:55 Sodium Chloride 0.9% 10 Ml Flush Syringe IV 07/06/19 21:59 10 ml Q8HT [facility] Administration Sodium Chloride 10 ml 06/06/19 17:30 Sodium Chloride 0.9% 10 Ml Flush Syringe IV 07/06/19 17:29 PRN PRN Theophylline 400 mg 06/07/19 12:00 06/07/19 12:53 Theophylline Er 24hr PO 07/07/19 11:59 400 mg DAILY [facility] Administration Discontinued Medications Generic Name Dose Route Start Last Admin Trade Name Freq PRN Reason Stop Dose Admin Albuterol/Ipratropium 3 ml 06/06/19 19:00 06/07/19 03:40 Duoneb 0.5-3 Mg/3 Ml Neb IH 07/06/19 18:59 Not Given Q4HRT [facility] Intake & Output (Last 24 hours) 06/05/19 06/06/19 06/07/19 06/08/19 11:59 11:59 11:59 11:59 Intake Total 1839 186 Balance 1839 1859 Weight 50.9 kg Microbiology Results (Last 24 hours) 06/07/19 13:00 Foot - Right Top Wound Culture - Pending Laboratory Results (Last 24 hours) 06/08/19 05:50 WBC 19.7 H RBC 4.22 Hgb 12.0 Hct 38.5 MCV 91.2 MCH 28.4 MCHC 31.2 L RDW 16.4 H Plt Count 254 MPV 10.5 H Orders (Last 24 hours) Category Date Time Status CBC AM.LAB Lab 06/08/19 05:50 Completed CULTURE,WOUND Routine Lab 06/07/19 13:00 Received Azithromycin 500 mg/250 ml [Zithromax 500 MG/ 250 ML Med 06/07/19 10:00 Active NaCl Premix] 500 mg in 250 ml IV Q24H10 Heparin Flush 500 units/5 ml [Heparin Lock Flush 100 Med 06/07/19 12:47 Active Units/ml 5ml Syringe] 500 units PORT FLUSH PRN PRN Loratadine 10 mg [Claritin 10 mg] Med 06/07/19 12:00 Active 10 mg PO DAILY Metoprolol Succinate 50 mg [Toprol Xl 50 MG] Med 06/07/19 12:00 Active 50 mg PO DAILY Montelukast Sodium 10 mg [Singulair 10 MG] Med 06/07/19 12:00 Active 10 mg PO DAILY Theophylline Anhydrous [Theophylline ER 24Hr] Med 06/07/19 12:00 Active 400 mg PO DAILY PT Eval & Treat (MD Order) ROUTINE PT 06/07/19 09:35 Completed Patient Care Notes (Last 24 hours) 06/07/19 14:13 Case Management Note by Charisma Stone SPOKE WITH PT REGARDING NEEDS AT DISCHARGE. PT DENIES NEEDS AT THIS TIME. PLANS TO RETURN HOME AT DISCHARGE. Initialized on 06/07/19 14:13 - END OF NOTE 06/07/19 12:59 Nursing Note by Allison Quinn pt stated she's going outside to smoke. Told pt about non-smoking policy and offered her a nicotine patch. I also stated to pt she is in isolation therefore not allowed to walk in hallway. Pt very agitated and upset. Encouraged her to take nicotine patch pt refusd nicotine patch. Initialized on 06/07/19 12:59 - END OF NOTE patient wants to go home. She is feeling fine. wound is dry, no active inflammation - Vitals & Intake/Output Vital Signs: Vital Signs Temperature 97.8 F 06/08/19 08:00 Pulse Rate 75 06/08/19 08:00 Respiratory Rate 16 06/08/19 08:00 Blood Pressure 124/74 06/08/19 08:00 O2 Sat by Pulse Oximetry 94 L 06/08/19 08:00 Intake & Output: Intake & Output 06/05/19 06/06/19 06/07/19 06/08/19 11:59 11:59 11:59 11:59 Intake Total 1840 1860 Balance 1840 1860 Weight 50.9 kg - Lab Result Diagrams: 06/08/19 05:50 06/06/19 19:30 Lab Results-Last 24 Hrs: Lab Results-Last 24 Hours 06/08/19 Range/Units 05:50 WBC 19.7 H (4.0-10.5) K/mm3 RBC 4.22 (4.1-5.4) M/mm3 Hgb 12.0 (12.0-16.0) gm/dl Hct 38.5 (35-47) % MCV 91.2 (78-100) fl MCH 28.4 (26-32) pg MCHC 31.2 L (32-36) g/dl RDW 16.4 H (11.5-14.0) % Plt Count 254 (150-450) K/mm3 MPV 10.5 H (7.5-11.0) fl - Radiology Exams Ordered Rad Exams-Entire Visit: Radiology Procedures Category Date Time Status CHEST 2 VIEWS (PA AND LAT) Stat Exams 06/06/19 19:00 Completed VENOUS UNILAT/LIMITED EXTREMIT [US] Stat Exams 06/06/19 19:03 Completed - Procedures and Test Procedures and Tests throughout Hospitalization: Therapy Orders & Screens 06/06/19 19:04 Respiratory Nebulizer Q4H Comment: duonebs every 4 hours Diagnosis: Exac Copd,Cellulitis 06/06/19 19:58 Peak Expiratory Flow Rate ONCE Comment: Reason For Exam: Diagnosis: Exac Copd,Cellulitis 06/06/19 19:59 Respiratory Therapy Assessment DAILY Comment: Diagnosis: Exac Copd,Cellulitis 06/07/19 09:35 PT Eval & Treat (MD Order) ROUTINE Reason for Eval:: therapy to eval and treat wounds Diagnosis: exacerbation COPD, cellulitis Discharge Exam General Appearance: no apparent distress, alert Neurologic Exam: alert, oriented x 3, cooperative, normal mood/affect, nml cerebellar function, sensation nml, No motor deficits Eye Exam: PERRL, EOMI, eyes nml inspection Ears, Nose, Throat Exam: normal ENT inspection, pharynx normal, moist mucous membranes Neck Exam: normal inspection, non-tender, supple, full range of motion Respiratory Exam: normal breath sounds, lungs clear, No respiratory distress Cardiovascular Exam: regular rate/rhythm, normal heart sounds Gastrointestinal/Abdomen Exam: soft, No tenderness, No mass Pelvic Exam: deferred Rectal Exam: deferred Back Exam: normal inspection, normal range of motion, No CVA tenderness, No vertebral tenderness Extremity Exam: normal inspection, normal range of motion, inflammation Skin Exam: normal color, warm, dry Wound Assessment: Skin/Wound Assessment Wound/Incision Assessment Start: 06/06/19 21: 05 Text: Status: Active Freq: Q6H Protocol: Document 06/08/19 09:00 BERTA (Rec: 06/08/19 09:25 BERTA [id number]) Wound/Incision Assessment Right Foot Wound Assessment Shift Assessment Wound Type cellulitis Wound Stage Non Pressure Wound Drainage Amount None General Appearance Reddened Comment 2 SCABBED/SORE AREAS, RED AND WARM TO THE TOUCH Final Diagnosis/Problem List - Final Discharge Diagnosis/Problem (1) Cellulitis and abscess of foot Current Visit: Yes Status: Acute Assessment & Plan: Last Vital Signs Temp 97.8 F 06/08/19 08:00 Pulse 75 01/04/20 08:00 Resp 16 06/08/19 08:00 BP 124/74 06/08/19 08:00 Pulse Ox 94 L 06/08/19 08:00 Allergies No Known Drug Allergies Allergy (Verified 06/01/19 22:59) Active Medications Albuterol Sulfate (Proventil 2.5 Mg/3 Ml Neb) 2.5 mg IH Q4H PRN PRN PRN Reason: SHORTNESS OF BREATH/WHEEZING Stop: 07/07/19 07:18 Alprazolam (Xanax 0.5 Mg) 0.5 mg PO DAILY PRN PRN PRN Reason: ANXIETY Stop: 07/06/19 21:25 Last Admin: 06/08/19 00:55 Dose: 0.5 mg Heparin Sodium (Beef Lung) (Heparin Lock Flush 100 Units/Ml 5ml Syringe) 500 units PORT FLUSH PRN PRN PRN Reason: IV PORT FLUSH Stop: 07/07/19 12:46 Ceftriaxone Sodium/Dextrose (Rocephin 1 Gm-D5w 50 Ml Bag) 1 g in 50 mls @ 100 mls/hr IV Q24H10 [facility] OF [facility] Stop: 07/06/19 17:59 Last Admin: 06/07/19 09:42 Dose: 100 mls/hr Azithromycin (Zithromax 500 Mg/ 250 Ml Nacl Premix) 500 mg in 250 mls @ 250 mls /hr IV Q24H10 [facility] Stop: 07/07/19 09:59 Last Admin: 06/07/19 09:42 Dose: 250 mls/hr Loratadine (Claritin 10 Mg) 10 mg PO DAILY [facility] Stop: 07/07/19 11:59 Last Admin: 06/07/19 12:53 Dose: 10 mg Methylprednisolone Sodium Succinate (Solu-Medrol 125 Mg) 60 mg IV Q6HT [facility] Stop: 07/06/19 17:59 Last Admin: 06/08/19 05:54 Dose: 60 mg Metoprolol Succinate (Toprol Xl 50 Mg) 50 mg PO DAILY [facility] Stop: 07/07/19 11:59 Last Admin: 06/07/19 12:53 Dose: 50 mg Montelukast Sodium (Singulair 10 Mg) 10 mg PO DAILY [facility] Stop: 07/07/19 11:59 Last Admin: 06/07/19 12:53 Dose: 10 mg Nicotine (Nicoderm Cq 21 Mg) 21 mg TOP QDP PRN Stop: 07/06/19 17:27 Last Admin: 06/07/19 15:55 Dose: 21 mg Oxycodone/Acetaminophen (Oxycodone-Acetaminophen 10-325) 1 tab PO Q4H PRN PRN PRN Reason: PAIN Stop: 06/11/19 21:28 Last Admin: 06/08/19 08:33 Dose: 1 tab Pantoprazole Sodium (Protonix 40mg Tablet) 40 mg PO BID [facility] Stop: 07/06/19 21:59 Last Admin: 06/07/19 20:52 Dose: 40 mg Sacubitril/Valsartan (Entresto 49 Mg-51 Mg Tablet) 1 tablet PO BID [facility] Stop: 07/06/19 21:59 Last Admin: 06/07/19 20:53 Dose: 1 tablet Sodium Chloride (Sodium Chloride 0.9% 10 Ml Flush Syringe) 10 ml IV Q8HT [facility] Stop: 07/06/19 21:59 Last Admin: 06/08/19 05:55 Dose: 10 ml Sodium Chloride (Sodium Chloride 0.9% 10 Ml Flush Syringe) 10 ml IV PRN PRN Stop: 07/06/19 17:29 Theophylline (Theophylline Er 24hr) 400 mg PO DAILY [facility] Stop: 07/07/19 11:59 Last Admin: 06/07/19 12:53 Dose: 400 mg Intake & Output 06/07/19 06/08/19 11:59 11:59 Intake Total 1840 1860 Balance 1840 1860 Weight 50.9 kg Lab Tests 06/08/19 05:50 WBC 19.7 H RBC 4.22 Hgb 12.0 Hct 38.5 MCV 91.2 MCH 28.4 MCHC 31.2 L RDW 16.4 H Plt Count 254 MPV 10.5 H Code(s): L03.119 - CELLULITIS OF UNSPECIFIED PART OF LIMB; L02.619 - CUTANEOUS ABSCESS OF UNSPECIFIED FOOT - Discharge Discharge Date: 06/08/19 Disposition: Home, Self-Care Condition: Stable Prescriptions: New Cephalexin Mh 500 mg [Keflex 500 mg] 500 mg PO QID #30 capsule Continue Alprazolam 1 mg [Xanax 1 mg] 0.5 mg PO DAILY PRN PRN Reason: Anxiety Albuterol Sulfate [Albuterol Sulfate Hfa] 8.5 gm IH TID Montelukast Sodium [Singulair] 10 mg PO DAILY Theophylline Anhydrous [Theophylline] 400 mg PO DAILY Oxycodone HCl/Acetaminophen [Percocet 10-325 mg Tablet] 1 each PO Q4HPRN PRN PRN Reason: Pain Albuterol Sulfate [Ventolin Hfa] 8 gm IH UD Omeprazole Magnesium [Prilosec Otc] 40 mg PO BID Loratadine 10 mg PO DAILY Metoprolol Succinate 50 mg [Toprol Xl 50 MG] 50 mg PO DAILY #30 tablet.sa Sacubitril/Valsartan [Entresto 49 mg-51 mg Tablet] 1 tablet PO BID #60 tablet Follow up with: SUSANA CUEVAS [Primary Care Provider] - 1 Week
[2019-06-08 13:32] VITALS: BP 156/86; PULSE 100
== END 2019-06-08 12:10 | disposition home or self-care (01) ==
LOC: MED SURG 18:33
PROVIDERS: ADMIT Family Medicine; ATTEND Family Medicine
DX: L03.115 Cellulitis of right lower limb (principal); J44.1 Chronic obstructive pulmonary disease with (acute) exacerbation; I10 Essential (primary) hypertension; M79.604 Pain in right leg; Z79.899 Other long term (current) drug therapy; F17.200 Nicotine dependence, unspecified, uncomplicated
CPT/HCPCS: 36415; 71046; 80048; 85027; 87070; 87631; 93971; 94150; 94640; 94760; 97161; G0378; J0456; J0696; J1642; J2930; A9270-GY

== ENCOUNTER 2020-06-28 22:33 | Emergency (ER) | payer MEDICARE ==
[2020-06-28] MEDS ORDERED: XYLOCAINE 1% HCL 20 ML MDV IJ ONE (22:34)
--- NOTE | 2020-06-28 23:13 | ERPHSYRPT ---
- History of Present Illness Time Seen by Provider: 06/28/20 23:07 Source: patient Exam Limitations: no limitations Physician History: Patient is a 54-year-old female who presents with a complaint of recurrent abscesses particularly on her lower extremities. She has been using clindamycin without much benefit. She has a prescription for Bactrim which was called into the pharmacy but the patient has not yet picked that up. Quality: painful Severity: moderate Location: extremities Allergies/Adverse Reactions: No Known Drug Allergies Allergy (Verified 06/28/20 22:46) Home Medications: Albuterol Sulfate [Albuterol Sulfate Hfa] 8.5 gm IH TID 08/29/16 [History] Alprazolam 1 mg [Xanax 1 mg] 0.5 mg PO DAILY PRN 08/29/16 [History] Montelukast Sodium [Singulair] 10 mg PO DAILY 08/29/16 [History] Albuterol Sulfate [Ventolin Hfa] 8 gm IH UD 05/16/17 [History] Oxycodone HCl/Acetaminophen [Percocet 10-325 mg Tablet] 1 each PO Q4HPRN PRN 05/16/17 [History] Theophylline Anhydrous [Theophylline] 400 mg PO DAILY 05/16/17 [History] Omeprazole Magnesium [Prilosec Otc] 40 mg PO BID 03/23/19 [History] Clindamycin HCl 300 mg PO TID 06/28/20 [History] Hx Tetanus, Diphtheria Vaccination/Date Given: Yes Hx Influenza Vaccination/Date Given: No Hx Pneumococcal Vaccination/Date Given: No Travel Risk - International Travel Have you traveled outside of the country in past 3 weeks: No - Coronavirus Screening Are you exhibiting any of the following symptoms?: No Close contact with a COVID-19 positive Pt in past 14-21 Days: No - Review of Systems Constitutional: No Fever, No Chills Eyes: No Symptoms Ears, Nose, & Throat: No Symptoms Respiratory: No Cough, No Dyspnea Cardiac: No Chest Pain, No Edema, No Syncope Abdominal/Gastrointestinal: No Abdominal Pain, No Nausea, No Vomiting, No Diarrhea Genitourinary Symptoms: No Dysuria Musculoskeletal: No Back Pain, No Neck Pain Skin: Skin Lesions, No Rash Neurological: No Dizziness, No Focal Weakness, No Sensory Changes Psychological: No Symptoms Endocrine: No Symptoms All Other Systems: Reviewed and Negative - Past Medical History Pertinent Past Medical History: Yes Neurological History: No Pertinent History ENT History: No Pertinent History Cardiac History: Hypertension Respiratory History: Asthma, Bronchitis, COPD, Emphysema, Pneumonia Endocrine Medical History: No Pertinent History Musculoskeletal History: No Pertinent History, Other GI Medical History: GERD, Hernia History: No Pertinent History Psycho-Social History: Depression Female Reproductive Disorders: No Pertinent History Other Medical History: RT shoulder Bursitis- torn rotator cuff and bone tumor. COPD. Smoker. bone tumor - Past Surgical History Past Surgical History: Yes Neuro Surgical History: No Pertinent History Cardiac: No Pertinent History Respiratory: No Pertinent History Gastrointestinal: No Pertinent History Genitourinary: No Pertinent History Musculoskeletal: No Pertinent History Female Surgical History: Tubal Ligation Other Surgical History: G-TUBE intubated. CHEST TUBE x2. CARPAL TUNNEL. cvl port poor iv access. tracheostomy - Social History Smoking Status: Heavy tobacco smoker How long have you smoked: 30 + years Exposure to second hand smoke: Yes Alcohol Use: Socially Drug Use: none Patient Lives Alone: No Significant Family History: no pertinent family hx - Nursing Vital Signs Nursing Vital Signs: Initial Vital Signs Temperature 97.5 F 06/28/20 22:43 Pulse Rate 90 06/28/20 22:43 Respiratory Rate 18 06/28/20 22:43 Blood Pressure 175/113 06/28/20 22:43 O2 Sat by Pulse Oximetry 100 06/28/20 22:43 Pain Scale Pain Intensity 10 - Physical Exam General Appearance: no apparent distress, alert Eye Exam: PERRL/EOMI, eyes nml inspection Ears, Nose, Throat Exam: normal ENT inspection, pharynx normal, moist mucous membranes Neck Exam: normal inspection, non-tender, supple, full range of motion Respiratory Exam: normal breath sounds, lungs clear, No respiratory distress Cardiovascular Exam: regular rate/rhythm, normal heart sounds Gastrointestinal/Abdomen Exam: soft, mass, No tenderness Back Exam: normal inspection, normal range of motion, No CVA tenderness, No vertebral tenderness Extremity Exam: normal inspection, normal range of motion Neurologic Exam: alert, oriented x 3, cooperative, normal mood/affect, sensation nml, No motor deficits Skin Exam: normal color, other (abscess on the right lower extremity lateral side of the distal right leg. About 1-1/2 cm in diameter) SpO2: 100 - Progress Progress: unchanged - Departure Departure Disposition: Home Clinical Impression: Abscess Condition: Stable Critical Care Time: No Referrals: SUSANA CUEVAS [Primary Care Provider] - Prescriptions: Sulfamethoxazole/Trimethoprim [Bactrim Ds Tablet] 1 each PO BID 14 Days #28 tablet
[2020-06-28] MEDS ORDERED: Rocephin 1000 MG INJ IM ONE (23:14)
[2020-06-28] MEDS ORDERED: BACTRIM DS TABLET PO STA (23:15)
[2020-06-28] MEDS ORDERED: Rocephin 1000 MG INJ ONE (23:16)
[2020-06-28] MEDS ORDERED: PERCOCET TABLET 5/325MG PO ONE (23:16)
[2020-06-28] MEDS ORDERED: BACTRIM DS TABLET PO ONE (23:16)
[2020-06-28] MEDS ORDERED: PERCOCET TABLET 5/325MG ONE (23:18)
[2020-06-29 00:03] VITALS: BP 164/93; PULSE 88; O2SAT 100
== END 2020-06-29 | disposition home or self-care (01) ==
LOC: ED 22:33
DX: L02.415 Cutaneous abscess of right lower limb (principal); I10 Essential (primary) hypertension; Z79.899 Other long term (current) drug therapy; Z79.891 Long term (current) use of opiate analgesic
CPT/HCPCS: 87070; 96372; 99284; J0696; A9270-GY

== ENCOUNTER 2021-10-20 15:12 | Day surgery (SDC) | payer MEDICARE ==
[2013-02-08 14:07] VITALS: BP 100/62
[2021-10-20] MEDS ORDERED: Xylocaine 1% Vial 30 ML PF IJ ONE (15:13)
[2021-10-20] MEDS ORDERED: Marcaine Mpf 0.5% Vial 30 Ml IJ ONE (15:13)
[2021-10-20] MEDS ORDERED: Depo-Medrol 40 MG/ML IM ONE (15:13)
--- NOTE | 2021-10-20 19:51 | XRAY ---
Indication: Right shoulder and subacromial bursal injection. Intraoperative fluoroscopy provided for 27 seconds. 3 digital spot image submitted for interpretation demonstrates needle tip projecting over the right glenohumeral joint superiorly. Second needle tip is subacromial. Small amount of contrast injected for both needle tip placement. Correlate with intraoperative findings/report.
--- NOTE | 2021-10-21 08:45 | XRAY ---
27 seconds fluoroscopy time in surgery for intra-articular and subacromial injections of the right shoulder.
== END 2021-10-20 17:34 | disposition home or self-care (01) ==
LOC: SDC-PAIN 15:12
PROVIDERS: ATTEND Psychiatry & Neurology Pain Medicine
DX: M19.011 Primary osteoarthritis, right shoulder (principal); M75.51 Bursitis of right shoulder
CPT/HCPCS: 20610; 73030; 77002; J1030; J2001; Q9966

== ENCOUNTER 2022-02-26 13:36 | Emergency (ER) | payer MEDICARE ==
--- NOTE | 2022-02-26 13:43 | ERPHSYRPT ---
- History of Present Illness Time Seen by Provider: 02/26/22 13:43 Historian: patient Exam Limitations: no limitations Physician History: This is a 56-year-old white female patient of Dr. Pak who is thin and has had no prior abdominal surgeries except a bilateral tubal ligation in the past. Patient has a known periumbilical hernia that been present for 15 years. In the last 4 days she has noticed that there is been increased size and associated pain in this area. Nausea began today and she became concerned there may be an incarceration. Patient has been wearing an abdominal binder. Patient does have a history of asthma, chronic bronchitis, COPD and is a heavy tobacco user. Patient has a history of gastroesophageal reflux disease. Patient does cough frequently. Timing/Duration: day(s) (4) Quality: aching Abdominal Pain Onset Location: periumbilical Severity of Pain-Max: moderate Severity of Pain-Current: mild Associated Symptoms: nausea, No diarrhea, No loss of appetite, No shortness of breath, No vomiting Previous symptoms: same symptoms as today, no recent treatment Allergies/Adverse Reactions: No Known Drug Allergies Allergy (Verified 02/26/22 13:47) Home Medications: Albuterol Sulfate [Albuterol Sulfate Hfa] 8.5 gm IH TID 08/29/16 [History] Montelukast Sodium [Singulair] 10 mg PO DAILY 08/29/16 [History] Albuterol Sulfate [Ventolin Hfa] 8 gm IH UD 05/16/17 [History] Oxycodone HCl/Acetaminophen [Percocet 10-325 mg Tablet] 1 each PO Q4HPRN PRN 05/16/17 [History] Theophylline Anhydrous [Theophylline] 400 mg PO DAILY 05/16/17 [History] Omeprazole Magnesium [Prilosec Otc] 40 mg PO BID 03/23/19 [History] Sacubitril/Valsartan [Entresto 24 mg-26 mg Tablet] 1 each PO DAILY 08/12/21 [History] Hx Tetanus, Diphtheria Vaccination/Date Given: Yes Hx Influenza Vaccination/Date Given: No Hx Pneumococcal Vaccination/Date Given: No Travel Risk - International Travel Have you traveled outside of the country in past 3 weeks: No - Coronavirus Screening Are you exhibiting any of the following symptoms?: No Close contact with a COVID-19 positive Pt in past 14-21 Days: No - Review of Systems Constitutional: No Symptoms Eyes: No Symptoms Ears, Nose, & Throat: No Symptoms Respiratory: No Symptoms Cardiac: No Symptoms Abdominal/Gastrointestinal: Other (Periumbilical subcutaneous fullness last mass with tenderness. No skin changes) Genitourinary Symptoms: No Symptoms Musculoskeletal: No Symptoms Skin: No Symptoms Neurological: No Symptoms Psychological: No Symptoms Endocrine: No Symptoms Hematologic/Lymphatic: No Symptoms Immunological/Allergic: No Symptoms All Other Systems: Reviewed and Negative - Past Medical History Pertinent Past Medical History: Yes Neurological History: No Pertinent History ENT History: No Pertinent History Cardiac History: Hypertension Respiratory History: Asthma, Bronchitis, COPD, Emphysema, Pneumonia Endocrine Medical History: No Pertinent History Musculoskeletal History: No Pertinent History, Other GI Medical History: GERD, Hernia History: No Pertinent History Psycho-Social History: Depression Female Reproductive Disorders: No Pertinent History Other Medical History: RT shoulder Bursitis- torn rotator cuff and bone tumor. COPD. Smoker. bone tumor - Past Surgical History Past Surgical History: Yes Neuro Surgical History: No Pertinent History Cardiac: No Pertinent History Respiratory: No Pertinent History Gastrointestinal: No Pertinent History Genitourinary: No Pertinent History Musculoskeletal: No Pertinent History Female Surgical History: Tubal Ligation Other Surgical History: G-TUBE intubated. CHEST TUBE x2. CARPAL TUNNEL. cvl port poor iv access. tracheostomy - Social History Smoking Status: Heavy tobacco smoker How long have you smoked: 30 + years Exposure to second hand smoke: Yes Alcohol Use: Socially Drug Use: none Patient Lives Alone: No Significant Family History: no pertinent family hx - Nursing Vital Signs Nursing Vital Signs: Initial Vital Signs Temperature 98 F 02/26/22 13:50 Pulse Rate 90 02/26/22 13:50 Respiratory Rate 18 02/26/22 13:50 Blood Pressure 125/82 02/26/22 13:50 O2 Sat by Pulse Oximetry 100 02/26/22 13:50 Pain Scale Pain Intensity 0 - Physical Exam General Appearance: no apparent distress, alert, anxiety, thin Eye Exam: PERRL/EOMI, eyes nml inspection Ears, Nose, Throat Exam: normal ENT inspection, moist mucous membranes Neck Exam: normal inspection, non-tender, supple, full range of motion Respiratory Exam: normal breath sounds, lungs clear, airway intact, No chest tenderness Cardiovascular Exam: regular rate/rhythm, normal heart sounds, normal peripheral pulses Gastrointestinal/Abdomen Exam: hernia (Tender periumbilical subcutaneous mass/fullness. No overlying skin changes.) Pelvic Exam: not done Rectal Exam: not done Back Exam: normal inspection, normal range of motion, CVA tenderness, vertebral tenderness Extremity Exam: normal inspection Neurologic Exam: alert, oriented x 3, cooperative, sound engineering technician II-XII nml as tested, normal mood/affect, nml cerebellar function, nml station & gait, sensation nml Skin Exam: normal color, warm, dry Lymphatic Exam: No adenopathy SpO2 Interpretation: normal O2 Delivery: Room Air Procedures - Additional Procedures Progress: Procedure note: Timeout performed at approximately 1405. The periumbilical, incarcerated hernia was reduced manually. Post reduction, the patient states that her pain significantly subsided and the site tenderness has resolved. She is feeling much better. - Course Nursing assessment & vital signs reviewed: Yes Ordered Tests: Active Orders 24 hr Category Date Time Status ABDOMEN AND PELVIS W/0 CONTRAS [CT] Stat Exams 02/26/22 14:05 Taken - Progress Progress: improved Progress Note: 02/26/22 15:30 CAT scan of the abdomen pelvis without contrast shows a small ventral hernia with fat present in it. There is evidence of some inflammation and edema. No bowel is present within the hernia or subcutaneous tissue layer Counseled pt/family regarding: diagnosis, need for follow-up, rad results - Departure Departure Disposition: Home Clinical Impression: Incarcerated umbilical hernia Condition: Stable Critical Care Time: No Referrals: SUSANA PAK [Primary Care Provider] - Follow up/PCP as directed Additional Instructions: Wear the abdominal binder when up and ambulating. Do not lift more than 10 pounds. No strenuous activity. Follow-up with Dr. Pak in his office on 02/28/2022 for referral to a general surgeon for further evaluation and management.
[2022-02-26 15:46] VITALS: BP 130/81; PULSE 87; O2SAT 99
--- NOTE | 2022-02-26 21:08 | XRAY ---
Indication: Paraumbilical bulging. Abdominal wall hernia. Multiple contiguous axial images obtained through the abdomen and pelvis without contrast. Comparison: None Lung bases demonstrates pulmonary emphysema and minimal bibasilar fibrosis/scarring. Heart not enlarged. Noncontrasted stomach and bowel loops nonobstructed with normal appendix. Mild diffuse scattered colonic fecal debris greatest in the ascending and transverse colon. No free fluid/air. Remaining liver, gallbladder, pancreas, spleen, adrenal glands, kidneys, ureters, bladder, and uterus are unremarkable for noncontrast exam. Mild scattered aortoiliac calcifications without AAA. Osseous structures intact with minimal degenerative spondylosis and 4-5 murmur L5 anterolisthesis. Small 1.7 cm supraumbilical fatty ventral hernia. Impression: 1. Small supraumbilical fatty ventral hernia. 2. Mild diffuse fecal stasis, pulmonary emphysema, arteriosclerotic disease, and chronic bony findings. Comment: [facility]. No critical discrepancy.
== END 2022-02-26 15:45 | disposition home or self-care (01) ==
LOC: ED 13:36
DX: K42.0 Umbilical hernia with obstruction, without gangrene (principal); R11.0 Nausea; J44.9 Chronic obstructive pulmonary disease, unspecified; I10 Essential (primary) hypertension; Z72.0 Tobacco use; Z79.899 Other long term (current) drug therapy
CPT/HCPCS: 74176; 99283; L0625

== ENCOUNTER 2022-02-28 19:17 | Emergency (ER) | payer MEDICARE ==
--- NOTE | 2022-02-28 19:42 | ERPHSYRPT ---
- History of Present Illness Time Seen by Provider: 02/28/22 19:42 Historian: patient Exam Limitations: no limitations Physician History: This is a 56-year-old white female who is then recent no abdominal surgeries but has a history of chronic bronchitis and asthma and COPD. She has been coughing frequently. I saw her in the emergency room here at [facility] 2 days ago because of an incarcerated abdominal/ventral hernia. I was able to reduce that hernia. CAT scan after reduction showed no bowel within the subcutaneous space. There was fat in the hernia only. Patient states that she has not been lifting and she has been wearing the abdominal binder. However, she is having trouble controlling her coughing and today the hernia recurred and she had pain in the same area. Patient has appointment to see Dr. Pak tomorrow morning. She has not had any fevers or vomiting symptoms. Timing/Duration: today Activities at Onset: other (Coughing) Quality: aching Abdominal Pain Onset Location: periumbilical Pain Radiation: no radiation Severity of Pain-Max: mild (Moderate) Severity of Pain-Current: mild (To moderate) Modifying Factors: Improves With: nothing Associated Symptoms: denies symptoms Previous symptoms: same symptoms as today, recently seen, recently treated Allergies/Adverse Reactions: No Known Drug Allergies Allergy (Verified 02/28/22 20:01) Home Medications: Albuterol Sulfate [Albuterol Sulfate Hfa] 8.5 gm IH TID 08/29/16 [History] Montelukast Sodium [Singulair] 10 mg PO DAILY 08/29/16 [History] Albuterol Sulfate [Ventolin Hfa] 8 gm IH UD 05/16/17 [History] Oxycodone HCl/Acetaminophen [Percocet 10-325 mg Tablet] 1 each PO Q4HPRN PRN 05/16/17 [History] Theophylline Anhydrous [Theophylline] 400 mg PO DAILY 05/16/17 [History] Omeprazole Magnesium [Prilosec Otc] 40 mg PO BID 03/23/19 [History] Sacubitril/Valsartan [Entresto 24 mg-26 mg Tablet] 1 each PO DAILY 08/12/21 [History] Hx Tetanus, Diphtheria Vaccination/Date Given: Yes Hx Influenza Vaccination/Date Given: No Hx Pneumococcal Vaccination/Date Given: No Travel Risk - International Travel Have you traveled outside of the country in past 3 weeks: No - Coronavirus Screening Are you exhibiting any of the following symptoms?: No Close contact with a COVID-19 positive Pt in past 14-21 Days: No - Vaccine Status Have you recieved a Covid-19 vaccination: No - Review of Systems Constitutional: No Symptoms Eyes: No Symptoms Ears, Nose, & Throat: No Symptoms Respiratory: No Symptoms Cardiac: No Symptoms Abdominal/Gastrointestinal: Abdominal Pain (Colitis at the area of ventral/umbilical hernia), No Nausea, No Vomiting, No Diarrhea, No Constipation Genitourinary Symptoms: No Symptoms Musculoskeletal: No Symptoms Neurological: No Symptoms Psychological: No Symptoms Endocrine: No Symptoms Hematologic/Lymphatic: No Symptoms Immunological/Allergic: No Symptoms All Other Systems: Reviewed and Negative - Past Medical History Pertinent Past Medical History: Yes Neurological History: No Pertinent History ENT History: No Pertinent History Cardiac History: Hypertension Respiratory History: Asthma, Bronchitis, COPD, Emphysema, Pneumonia Endocrine Medical History: No Pertinent History Musculoskeletal History: No Pertinent History, Other GI Medical History: GERD, Hernia History: No Pertinent History Psycho-Social History: Depression Female Reproductive Disorders: No Pertinent History Other Medical History: RT shoulder Bursitis- torn rotator cuff and bone tumor. COPD. Smoker. bone tumor - Past Surgical History Past Surgical History: Yes Neuro Surgical History: No Pertinent History Cardiac: No Pertinent History Respiratory: No Pertinent History Gastrointestinal: No Pertinent History Genitourinary: No Pertinent History Musculoskeletal: No Pertinent History Female Surgical History: Tubal Ligation Other Surgical History: G-TUBE intubated. CHEST TUBE x2. CARPAL TUNNEL. cvl port poor iv access. tracheostomy - Social History Smoking Status: Heavy tobacco smoker How long have you smoked: 30 + years Exposure to second hand smoke: Yes Alcohol Use: Socially Drug Use: none Patient Lives Alone: No Significant Family History: no pertinent family hx - Nursing Vital Signs Nursing Vital Signs: Initial Vital Signs Temperature 98.6 F 02/28/22 19:45 Pulse Rate 84 02/28/22 19:45 Respiratory Rate 16 02/28/22 19:45 Blood Pressure 164/95 02/28/22 19:45 O2 Sat by Pulse Oximetry 98 02/28/22 19:45 Pain Scale Pain Intensity 6 - Physical Exam General Appearance: no apparent distress, alert, anxiety Eye Exam: PERRL/EOMI, eyes nml inspection Ears, Nose, Throat Exam: normal ENT inspection, moist mucous membranes Neck Exam: normal inspection, non-tender, supple, full range of motion Respiratory Exam: normal breath sounds, lungs clear, airway intact, No chest tenderness, No respiratory distress Cardiovascular Exam: regular rate/rhythm, normal heart sounds, normal peripheral pulses Gastrointestinal/Abdomen Exam: soft, normal bowel sounds, tenderness (At incarcerated hernia site. No skin changes noted), No distention (.), No pulsatile mass, No rebound Pelvic Exam: not done Rectal Exam: not done Back Exam: normal inspection, normal range of motion, No vertebral tenderness Extremity Exam: normal inspection, normal range of motion, pelvis stable Neurologic Exam: alert, oriented x 3, cooperative, platen grinder II-XII nml as tested, normal mood/affect, nml cerebellar function, nml station & gait, sensation nml Skin Exam: normal color, warm, dry Lymphatic Exam: No adenopathy SpO2 Interpretation: normal O2 Delivery: Room Air - Course Nursing assessment & vital signs reviewed: Yes Ordered Tests: Medication Summary Discontinued Medications Generic Name Dose Route Start Last Admin Trade Name Florian PRN Reason Stop Dose Admin Hydrocodone Bitart/Acetaminophen 1 tab 02/28/22 20:28 02/28/22 20:34 Hydrocodone/Apap 5/325 Mg Tablet PO 02/28/22 20:29 1 tab STAT ONE Administration Hydrocodone Bitart/Acetaminophen Confirm 02/28/22 20:33 Hydrocodone/Apap 5/325 Mg Tablet Administered 02/28/22 20:34 Dose 1 tab .ROUTE .STK-MED ONE Prednisone 20 mg 02/28/22 20:29 02/28/22 20:34 Prednisone 20 Mg Tablet PO 02/28/22 20:30 20 mg STAT ONE Administration Prednisone Confirm 02/28/22 20:32 Prednisone 20 Mg Tablet Administered 02/28/22 20:33 Dose 20 mg .ROUTE .STK-MED ONE - Progress Progress Note: 02/28/22 20:56 Procedure was performed at approximately 8:40 PM. Timeout was noted. Patient had an incarcerated umbilical hernia that is recurred. With even pressure the umbilical/ventral hernia was significantly reduced. Patient's symptoms resolved. She tolerated the procedure well Counseled pt/family regarding: diagnosis, need for follow-up - Departure Departure Disposition: Home Clinical Impression: Incarcerated ventral hernia Condition: Stable Critical Care Time: No Referrals: SUSANA PAK [Primary Care Provider] - Follow up/PCP as directed Additional Instructions: Stop coughing. Do not lift more than 10 pounds. Rest when you are at home. Wear your abdominal binder. Follow-up with Dr. Pak in his office tomorrow at your scheduled appointment time for evaluation referral to general surgeon. Take your medications as prescribed Prescriptions: Hydrocodone/Acetaminophen [Hydrocodone-Acetamn 7.5-325/15] 10 ml PO Q8H PRN PRN #120 ml MDD 30 ml PRN Reason: Cough Prednisone 10 mg [Deltasone 10 mg] 10 mg PO TID #12 tablet
[2022-02-28 20:23] VITALS: BP 126/83; PULSE 72; O2SAT 92
[2022-02-28] MEDS ORDERED: NORCO 5/325 MG PO ONE (20:28)
[2022-02-28] MEDS ORDERED: DELTASONE 20 MG PO ONE (20:29)
[2022-02-28] MEDS ORDERED: DELTASONE 20 MG ONE (20:32)
[2022-02-28] MEDS ORDERED: NORCO 5/325 MG ONE (20:33)
== END 2022-02-28 21:44 | disposition home or self-care (01) ==
LOC: ED 19:17
DX: K43.6 Other and unspecified ventral hernia with obstruction, without gangrene (principal); R05.9 Cough, unspecified; I10 Essential (primary) hypertension; J43.9 Emphysema, unspecified; Z72.0 Tobacco use; Z79.891 Long term (current) use of opiate analgesic; Z79.52 Long term (current) use of systemic steroids; Z79.899 Other long term (current) drug therapy; Z28.310 Unvaccinated for COVID-19
CPT/HCPCS: 99282; A9270-GY

== ENCOUNTER 2022-05-11 12:51 | Day surgery (SDC) | payer MEDICARE ==
[2013-02-08 14:07] VITALS: BP 100/62
[2022-05-11] MEDS ORDERED: BUPIVACAINE 0.5% VIAL IJ ONE (12:52)
[2022-05-11] MEDS ORDERED: Depo-Medrol 40 MG/ML IM ONE (12:52)
[2022-05-11] MEDS ORDERED: XYLOCAINE-MPF 1% 5ML SDV IJ ONE (12:52)
--- NOTE | 2022-05-11 20:26 | XRAY ---
Indication: Right shoulder and subacromial bursa injection. Intraoperative fluoroscopy provided for 24 seconds. 2 digital spot images submitted for interpretation demonstrates needle tip projecting over the right glenohumeral joint superiorly. Second needle tip subacromial. Small amount of contrast injected for both needle tip placement. Correlate with intraoperative findings/report.
--- NOTE | 2022-05-12 09:13 | XRAY ---
24 seconds of fluoroscopy was used in surgery for a right intra-articular shoulder and subacromial bursa injection.
== END 2022-05-11 16:50 | disposition home or self-care (01) ==
LOC: SDC-PAIN 12:51
PROVIDERS: ATTEND Psychiatry & Neurology Pain Medicine
DX: M19.011 Primary osteoarthritis, right shoulder (principal); M75.51 Bursitis of right shoulder; Z79.899 Other long term (current) drug therapy
CPT/HCPCS: 20610; 73030; 77002; J1030

== ENCOUNTER 2023-03-22 02:10 | Emergency (ER) | payer MEDICARE ==
[2023-03-22 02:21] VITALS: TEMP 98.6
[2023-03-22] MEDS ORDERED: TORAdol 30 mg Injection IM ONE (03:15)
[2023-03-22] MEDS ORDERED: TORAdol 30 mg Injection ONE (03:16)
--- NOTE | 2023-03-22 03:22 | ERPHSYRPT ---
- History of Present Illness Time Seen by Provider: 03/22/23 02:40 Source: patient Exam Limitations: no limitations Patient Subjective Stated Complaint: pt states 3 days ago she was working on a project at home and accidently hit her L side of ribs with the blunt end of a screw local bulk driver. Triage Nursing Assessment: pt ambulatory to bed by self with steady gait, pt alert and oriented x3, skin pwd, pt c/o L sided rib pain for 3 days, no bruising or abnormalities noted to L side Physician History: Patient is a 57-year-old female presents to our ED for a x-ray of her left rib. Patient states she hit her left rib with the blunt end of a screwdriver approximately 3 days ago. Since then she has been experiencing some localized tenderness to left anterior chest wall. Pain worse with palpation and movement. Pain improves with rest. She has no other complaints. No shortness of breath. No nausea vomiting or diaphoresis. Patient voices no other complaints or concerns at this time. Portions of this note were created with voice recognition technology. There may be grammatical, spelling, punctuation or sound alike errors Timing/Duration: day(s) (3 days ago) Severity: moderate Modifying Factors: Improves With: nothing Associated Symptoms: denies symptoms Allergies/Adverse Reactions: No Known Drug Allergies Allergy (Verified 03/22/23 02:16) Home Medications: Albuterol Sulfate [Albuterol Sulfate Hfa] 8.5 gm IH TID 08/29/16 [History] Montelukast Sodium [Singulair] 10 mg PO DAILY 08/29/16 [History] Oxycodone HCl/Acetaminophen [Percocet 10-325 mg Tablet] 1 each PO Q4HPRN PRN 05/16/17 [History] Theophylline Anhydrous [Theophylline ER] 400 mg PO DAILY 05/16/17 [History] Omeprazole Magnesium [Prilosec Otc] 40 mg PO BID 03/23/19 [History] Sacubitril/Valsartan [Entresto 49 mg-51 mg Tablet] 1 tab PO DAILY 06/06/22 [History] Hx Tetanus, Diphtheria Vaccination/Date Given: Yes Hx Influenza Vaccination/Date Given: No Hx Pneumococcal Vaccination/Date Given: Yes Immunizations Up to Date: Yes Travel Risk - International Travel Have you traveled outside of the country in past 3 weeks: No - Coronavirus Screening Are you exhibiting any of the following symptoms?: No Close contact with a COVID-19 positive Pt in past 14-21 Days: No - Vaccine Status Have you recieved a Covid-19 vaccination: No - Review of Systems Constitutional: No Symptoms, No Fever, No Chills Eyes: No Symptoms Ears, Nose, & Throat: No Symptoms Respiratory: No Symptoms, No Cough, No Dyspnea Cardiac: No Symptoms, No Chest Pain, No Edema, No Syncope Abdominal/Gastrointestinal: No Symptoms, No Abdominal Pain, No Nausea, No Vomiting, No Diarrhea Genitourinary Symptoms: No Symptoms, No Dysuria Musculoskeletal: No Symptoms, No Back Pain, No Neck Pain Skin: No Symptoms, No Rash Neurological: No Symptoms, No Dizziness, No Focal Weakness, No Sensory Changes Psychological: No Symptoms Endocrine: No Symptoms Hematologic/Lymphatic: No Symptoms Immunological/Allergic: No Symptoms All Other Systems: Reviewed and Negative - Past Medical History Pertinent Past Medical History: Yes Neurological History: No Pertinent History ENT History: No Pertinent History Cardiac History: Hypertension Respiratory History: Asthma, Bronchitis, COPD, Emphysema, Pneumonia Endocrine Medical History: No Pertinent History Musculoskeletal History: No Pertinent History, Other GI Medical History: GERD, Hernia History: No Pertinent History Psycho-Social History: Depression Female Reproductive Disorders: No Pertinent History Other Medical History: RT shoulder Bursitis- torn rotator cuff and bone tumor. COPD. Smoker. bone tumor - Past Surgical History Past Surgical History: Yes Neuro Surgical History: No Pertinent History Cardiac: No Pertinent History Respiratory: No Pertinent History Gastrointestinal: No Pertinent History Genitourinary: No Pertinent History Musculoskeletal: No Pertinent History Female Surgical History: Tubal Ligation Other Surgical History: G-TUBE intubated. CHEST TUBE x2. CARPAL TUNNEL. cvl port poor iv access. tracheostomy - Social History Smoking Status: Current every day smoker How long have you smoked: 30 + years Exposure to second hand smoke: Yes Alcohol Use: Socially Drug Use: none Patient Lives Alone: No Significant Family History: no pertinent family hx - Nursing Vital Signs Nursing Vital Signs: Initial Vital Signs Temperature 98.6 F 03/22/23 02:20 Pulse Rate 103 H 03/22/23 02:20 Respiratory Rate 18 03/22/23 02:20 Blood Pressure 170/102 03/22/23 02:20 O2 Sat by Pulse Oximetry 100 03/22/23 02:20 Pain Scale Pain Intensity 9 - Physical Exam General Appearance: no apparent distress, alert Eye Exam: PERRL/EOMI, eyes nml inspection Ears, Nose, Throat Exam: normal ENT inspection, TMs normal, pharynx normal, moist mucous membranes Neck Exam: normal inspection, non-tender, supple, full range of motion Respiratory Exam: normal breath sounds, lungs clear, other (Tenderness to palpation left rib anterior lateral chest wall. Overlying soft tissue intact. No signs of trauma), No respiratory distress Cardiovascular Exam: regular rate/rhythm, normal heart sounds, normal peripheral pulses Gastrointestinal/Abdomen Exam: soft, normal bowel sounds, No tenderness, No mass Back Exam: normal inspection, normal range of motion, No CVA tenderness, No vertebral tenderness Extremity Exam: normal inspection, normal range of motion, pelvis stable Neurologic Exam: alert, oriented x 3, cooperative, normal mood/affect, sensation nml, No motor deficits Skin Exam: normal color, warm, dry, No rash Lymphatic Exam: No adenopathy SpO2 Interpretation: normal SpO2: 96 O2 Delivery: Room Air - Course Nursing assessment & vital signs reviewed: Yes - Radiology Exams Ribs X-ray Interpretation: Interpreted by me (Osteopenia, degenerative spine changes. No fractures or dislocations) Ordered Tests: Active Orders 24 hr Category Date Time Status RIBS UNILATERAL Stat Exams 03/22/23 02:18 Taken Medication Summary Discontinued Medications Generic Name Dose Route Start Last Admin Trade Name Freq PRN Reason Stop Dose Admin Ketorolac Tromethamine 30 mg 03/22/23 03:15 Ketorolac Tromethamine 30 Mg/Ml Inj IM 03/22/23 03:16 STAT ONE - Progress Progress: improved Progress Note: Patient is a 57-year-old female presents to our ED for an x-ray of her left [address]. Patient states she injured her left anterolateral rib with the blunt end of a screwdriver approximately 3 days ago. Since then patient has been experiencing localized tenderness. Pain worse with palpation. Pain improves with rest. No associated numbness tingling or weakness. No shortness of breath. No diaphoresis. Patient voices no other complaints or concerns at this time. Portions of this note were created with voice recognition technology. There may be grammatical, spelling, punctuation or sound alike errors Complexity of problems addressed as low acute uncomplicated No critical care time Complexity of data reviewed and analyzed is moderate. Test ordered test reviewed. X-ray analyzed. Clinical correlation made between x-ray findings and history and physical exam. Risk of complication and or risk of morbidity/mortality of patient management is low. Patient has pain medication at home. Vital stable. Time spent to discharge patient approximately 10 minutes. Plan of care established for shared decision making. No social determinants of health presents impede follow-up. Portions of this note were created with voice recognition technology. There may be grammatical, spelling, punctuation or sound alike errors 03/22/23 03:26 Counseled pt/family regarding: diagnosis, need for follow-up, rad results - Departure Departure Disposition: Home Clinical Impression: Contusion of rib on left side Condition: Stable Critical Care Time: No Referrals: SUSANA CUEVAS [Primary Care Provider] - Follow up/PCP as directed Additional Instructions: Discharge/Care Plan ARMENDARIZ,SEBASTIAN GARRICK was seen on 03/22/23 in the Emergency Room. The patient was counseled regarding Diagnosis,Lab results, Imaging studies, need for follow up and when to return to the Emergency Room. Prescriptions given: Discharge Note I have spoken with the patient and/or caregivers. I have explained the patient's condition, diagnosis and treatment plan based on the information available to me at this time. I have answered the patient's and/or caregiver's questions and addressed any concerns. The patient and/or caregivers have as good understanding of the patient's diagnosis, condition and treatment plan as can be expected at this point. The vital signs have been stable. The patient's condition is stable and appropriate for discharge from the emergency department. The patient will pursue further outpatient evaluation with the primary care physician or other designated or consulting physician as outlined in the discharge instructions. The patient and/or caregivers are agreeable to this plan of care and follow-up instructions have been explained in detail. The patient and/or caregivers have received these instruction. The patient/and or caregivers are aware that any significant change in condition or worsening of symptoms should prompt an immediate return to this or the closest emergency department or call 911.
[2023-03-22 04:17] VITALS: BP 134/92; PULSE 80; RESP 20; O2SAT 94
--- NOTE | 2023-03-22 13:54 | XRAY ---
Indication: Pain following injury. Comparison: None 2 view left ribs demonstrates osteopenia, old 7 rib fracture, minimal/mild degenerative changes throughout visualized spine, mild left shoulder degenerative arthropathy, left apical masslike opacity, left lung base calcified granuloma, and left Port-A-Cath all unchanged with respect to chest exam December 28, 2022. No other bony, articular, or soft tissue abnormalities.
== END 2023-03-22 04:20 | disposition home or self-care (01) ==
LOC: ED 02:10
DX: S20.212A Contusion of left front wall of thorax, initial encounter (principal); W22.8XXA Striking against or struck by other objects, initial encounter; I10 Essential (primary) hypertension; Z79.891 Long term (current) use of opiate analgesic; Z79.899 Other long term (current) drug therapy; Z28.310 Unvaccinated for COVID-19; Z72.0 Tobacco use
CPT/HCPCS: 71100; 96372; 99283; J1885

== ENCOUNTER 2023-10-19 10:24 | Day surgery (SDC) | payer MEDICARE ==
--- NOTE | 2023-10-18 09:33 | HP ---
DATE OF SURGERY: 10/19/2023 HISTORY OF PRESENT ILLNESS: The patient is a 58-year-old female presents with a port. She has had port in for ten years. She has had lung disease. She is not using the port currently. It was placed at the time she had significant lung issue. However, she did state that she did not have any lung cancer. PAST MEDICAL HISTORY: Anxiety, asthma, cardiomyopathy, congestive heart failure, chronic obstructive pulmonary disease, hypertension, gastroesophageal reflux disease. PAST SURGICAL HISTORY: Carpal tunnel. Bilateral tubal ligation. ALLERGIES: NKDA. MEDICATIONS: Oxycodone, amitriptyline, metoprolol, albuterol, fluconazole, citalopram, prednisone, omeprazole, Entresto, Singulair, Spiriva. FAMILY HISTORY: None reported. SOCIAL HISTORY: Current smoker. REVIEW OF SYSTEMS: CONSTITUTIONAL: Denies fever or chills. CHEST: Denies shortness of breath. CVS: Denies chest pain. ABDOMEN: Denies abdominal pain. PHYSICAL EXAMINATION: GENERAL: No acute distress. CHEST: Nonlabored. No shortness of breath. CVS: Regular rate and rhythm. ABDOMEN: Soft. IMPRESSION: Undesired port. PLAN: Port removal with Dr. Eleazar Barrett. As dictated by Marissa Lee NP.
[2023-10-19] MEDS ORDERED: Lactated Ringers 1,000 ML IV ONE (12:03)
[2023-10-19 12:16] VITALS: RESP 18
[2023-10-19] MEDS ORDERED: Sensorcaine 0.25% 10 ML ONE (12:34)
[2023-10-19] MEDS ORDERED: Versed 2 MG/2 ML Injection ONE (12:38)
[2023-10-19] MEDS ORDERED: Xylocaine-Mpf 2% 5 Ml Vial ONE (12:38)
[2023-10-19] MEDS ORDERED: DIPRIVAN 200 MG/20 ML IV ONE (12:39)
[2023-10-19] MEDS ORDERED: SUBLIMAZE 100 MCG/2 ML ONE (12:39)
[2023-10-19 12:40] LABS: Absolute Neutrophil Ct (ANC) 4.13 x10^3/uL (1.4-6.9); BASOPHIL % 0.7 % (0.0-0.4); Basophil (Absolute #) 0.05 x10^3/uL (0-0.4); Eosinophil % 1.2 % (0.00-5.0); Eosinophil (Absolute #) 0.09 x10^3/uL (0-0.5); Hematocrit 41.6 % (35-47); Hemoglobin 13.2 g/dL (12.0-16.0); IMMATURE GRAN # 0.02 x10^3u/L (0.00-0.03); IMMATURE GRAN % 0.3 % (0.00-0.4); Lymphocyte (Absolute #) 2.92 x10^3/uL (1.0-4.6); Mean Corpuscular Hemoglobin 28.9 pg (26-32); Mean Corpuscular Hgb Concent. 31.7 g/dL (32-36); Mean Platelet Volume 10.4 fL (7.5-11.0); Monocyte (Absolute #) 0.48 x10^3/uL (0.0-1.3); Monocytes % 6.2 % (0.0-12.0); Neutrophil % 53.6 % (36.0-66.0); Platelet Count 221 x10^3/uL (150-450); Red Blood Count 4.57 x10^6/uL (4.1-5.4); Red Cell Distribution Width 14.2 % (11.5-14.0); White Blood Count 7.7 x10^3/uL (4.0-10.5)
[2023-10-19 12:53] LABS: ANION GAP 10.6 MEQ/L (5-15); BILIRUBIN,TOTAL 0.4 mg/dL (0.2-1.3); Creatinine 1 0.97 mg/dL (0.52-1.04); EST GLOMERULAR FILTRATION RATE 67.7 ML/MIN; Potassium 3.3 mmol/L (3.5-5.1); Total Protein 7.4 g/dL (6.3-8.2)
[2023-10-19] MEDS ORDERED: XYLOCAINE 1% HCL 20 ML MDV ONE (12:59)
[2023-10-19 14:22] VITALS: BP 158/94; PULSE 73; TEMP 97.3; O2SAT 97
--- NOTE | 2023-10-20 08:49 | OP ---
SURGERY DATE/TIME: 10/19/2023 1300 PREOPERATIVE DIAGNOSIS: Undesired Port-A-Cath. POSTOPERATIVE DIAGNOSIS: Undesired Port-A-Cath. PROCEDURE: Complete port removal. SURGEON: Eleazar Barrett M.D. ANESTHESIA: MAC. COMPLICATIONS: None. CONDITION: Stable. DESCRIPTION OF PROCEDURE: Patient taken to surgery. MAC sedation provided. The port was removed. The tip was removed through a counter incision and it was totally intact. Closed with 3-0 Vicryl, 4-0 Vicryl and Steri-Strips. The patient tolerated the procedure satisfactorily.
== END 2023-10-19 14:35 | disposition home or self-care (01) ==
LOC: SDC 10:24
PROVIDERS: ATTEND Surgery
DX: Z45.2 Encounter for adjustment and management of vascular access device (principal); I10 Essential (primary) hypertension
CPT/HCPCS: 36415; 80053; 85025; 93005; J2250; J2704; J3010

== ENCOUNTER 2024-07-12 17:01 | Emergency (ER) | payer MEDICARE ==
--- NOTE | 2024-07-12 17:10 | ERPHSYRPT ---
- History of Present Illness Time Seen by Provider: 07/12/24 17:10 Source: patient Exam Limitations: no limitations Physician History: This is a thin 58-year-old white female patient of Dr. Pak who presents by private vehicle with a complaint of fever and cough for 8 days. Patient states that she has been laying around in bed because she is not feeling well. Patient states that she has been using old steroids and oral antibiotics without improvement. She has wheezing present. Patient denies chest pain. Patient has a history of hypertension, COPD, gastroesophageal reflux disease and depression. Timing/Duration: day(s) (8), worse Cough Quality/Degree: mild (Moderate), dry cough Possible Cause: occasional episodes Modifying Factors: Improves With: coughing Associated Symptoms: fever, cough, sore throat Allergies/Adverse Reactions: No Known Drug Allergies Allergy (Verified 07/12/24 17:12) Home Medications: Albuterol Sulfate [Albuterol Sulfate Hfa] 8.5 gm IH TID 08/29/16 [History] Montelukast Sodium [Singulair] 10 mg PO DAILY 08/29/16 [History] Oxycodone HCl/Acetaminophen [Percocet 10-325 mg Tablet] 1 each PO Q4HPRN PRN 05/16/17 [History] Theophylline Anhydrous [Theophylline ER] 400 mg PO DAILY 05/16/17 [History] Omeprazole Magnesium [Prilosec Otc] 40 mg PO BID 03/23/19 [History] Citalopram Hydrobromide [Celexa] 20 mg PO DAILY 09/29/23 [History] Hx Tetanus, Diphtheria Vaccination/Date Given: Yes Hx Influenza Vaccination/Date Given: No Hx Pneumococcal Vaccination/Date Given: Yes Travel Risk - Emerging Infectious Disease Are you exhibiting symptoms associated with any current EIDs: No Symptoms: Cough: New Onset, Fever - Review of Systems Constitutional: Fever Eyes: No Symptoms Ears, Nose, & Throat: No Symptoms Respiratory: Cough Cardiac: No Symptoms Abdominal/Gastrointestinal: No Symptoms Genitourinary Symptoms: No Symptoms Musculoskeletal: No Symptoms Skin: No Symptoms Neurological: No Symptoms Psychological: No Symptoms Endocrine: No Symptoms Hematologic/Lymphatic: No Symptoms Immunological/Allergic: No Symptoms All Other Systems: Reviewed and Negative - Past Medical History Pertinent Past Medical History: Yes Neurological History: No Pertinent History ENT History: No Pertinent History Cardiac History: Hypertension Respiratory History: COPD, Emphysema Endocrine Medical History: No Pertinent History Musculoskeletal History: No Pertinent History, Other GI Medical History: GERD, Hernia History: No Pertinent History Psycho-Social History: Depression Female Reproductive Disorders: No Pertinent History Other Medical History: RT shoulder Bursitis- torn rotator cuff and bone tumor. COPD. Smoker. bone tumor - Past Surgical History Past Surgical History: Yes Neuro Surgical History: No Pertinent History Cardiac: No Pertinent History Respiratory: No Pertinent History Gastrointestinal: No Pertinent History Genitourinary: No Pertinent History Musculoskeletal: No Pertinent History Female Surgical History: Tubal Ligation Other Surgical History: G-TUBE intubated. CHEST TUBE x2. CARPAL TUNNEL. cvl port poor iv access. tracheostomy. right shoulder replacement Significant Family History: no pertinent family hx - Social History Smoking Status: Current every day smoker How long have you smoked: 30 + years Exposure to second hand smoke: Yes Alcohol Use: Socially Drug Use: none Patient Lives Alone: No - Nursing Vital Signs Nursing Vital Signs: Initial Vital Signs Temperature 99.0 F 07/12/24 17:14 Pulse Rate 98 H 07/12/24 17:14 Respiratory Rate 20 07/12/24 17:14 Blood Pressure 161/108 07/12/24 17:14 O2 Sat by Pulse Oximetry 96 07/12/24 17:14 Pain Scale Pain Intensity 2 - Physical Exam General Appearance: no apparent distress, alert, thin Eye Exam: PERRL/EOMI, eyes nml inspection Ears, Nose, Throat Exam: normal ENT inspection, moist mucous membranes Neck Exam: normal inspection, non-tender, supple, full range of motion Respiratory Exam: wheezing, No chest tenderness, No respiratory distress, No accessory muscle use Cardiovascular Exam: regular rate/rhythm, normal heart sounds, normal peripheral pulses Gastrointestinal/Abdomen Exam: soft, normal bowel sounds, No tenderness Pelvic Exam: not done Rectal Exam: not done Back Exam: normal inspection, normal range of motion, No CVA tenderness, No vertebral tenderness Extremity Exam: normal inspection, normal range of motion, pelvis stable Neurologic Exam: alert, oriented x 3, cooperative, assistant branch operations manager II-XII nml as tested, normal mood/affect, nml cerebellar function, nml station & gait, sensation nml Skin Exam: normal color, warm, dry Lymphatic Exam: No adenopathy SpO2 Interpretation: normal O2 Delivery: Room Air - Course Nursing assessment & vital signs reviewed: Yes Ordered Tests: Active Orders 24 hr Category Date Time Status Pulse Oximetry (ED) STAT Care 07/12/24 17:43 Active CHEST 1 VIEW (PORTABLE) Stat Exams 07/12/24 17:44 Taken BLOOD CULTURE Stat Lab 07/12/24 18:10 Ordered MONO SCREEN Stat Lab 07/12/24 18:10 Completed Respiratory Therapy Assessment DAILY RT 07/12/24 17:57 Active Medication Summary Discontinued Medications Generic Name Dose Route Start Last Admin Trade Name Florian PRN Reason Stop Dose Admin Albuterol/Ipratropium Confirm 07/12/24 17:53 Ipratropium/Albuterol Sulfate 3 Ml Ampul.Neb Administered 07/12/24 17:54 Dose 3 ml IH .STK-MED ONE Albuterol/Ipratropium 3 ml 07/12/24 17:58 07/12/24 18:02 Ipratropium/Albuterol Sulfate 3 Ml Ampul.Neb IH 07/12/24 17:59 3 ml STAT ONE Administration Lab/Rad Data: Laboratory Results 07/12/24 07/12/24 07/12/24 Range/Units 18:10 18:00 18:00 Monoscreen NEGATIVE (NEGATIVE) Influenza Type A Ag POSITIVE A (NEGATIVE) Influenza Type B Ag NEGATIVE (NEGATIVE) RSV (PCR) NEGATIVE (NEGATIVE) SARS-CoV-2 (PCR) NEGATIVE (NEGATIVE) Group A Strep Antibody NOT DETECTED (NEGATIVE) - Progress Progress: improved, re-examined Air Movement: good Progress Note: 07/12/24 18:04 My medical decision making and the assignment of low to moderate complexity of this patient's medical issue today is based on review of the patient's past medical history, review of the patient's medication list, reviewed patient drug allergy list, history present illness and physical findings on examination. The workup in this patient includes chest x-ray, CBC, CMP, monotest, viral swabs, group A strep test. We will also consult respiratory therapy to provide this patient with a nebulizer treatment. Differential diagnosis includes but is not limited to COPD exacerbation, upper respiratory infection, pneumonia, viral illness, strep pharyngitis 07/12/24 18:43 I interpreted the patient's laboratory data results. Based on the laboratory data results, the patient has influenza A infection. I interpreted the preliminary chest x-ray report. Compared to chest x-ray dated 12/28/2022, today's chest x-ray appears to show bibasilar mild/early infiltrate versus atelectasis. Blood Culture(s) Obtained: No Antibiotics given: Yes Counseled pt/family regarding: lab results, diagnosis, need for follow-up, rad results Medical Desision Making - Diagnostic Testing Diagnostic test were ordered, analyzed, and reviewed by me: Yes Radiological Interpretation: Interpreted by me, Teleradiologist Report - Risk of complications The pt has a mod risk of morbidity or mortality based on: Need for prescription drug management - Departure Departure Disposition: Home Clinical Impression: Upper respiratory infection, Influenza A H1N1 infection Condition: Stable Critical Care Time: No Referrals: SUSANA PAK [Primary Care Provider] - Follow up/PCP as directed Additional Instructions: Drink plenty of fluids. Advance your diet slowly. Take your antibiotics and steroids as prescribed. Call your primary care provider on Monday, to 03/2025 to make arrangements for follow-up appointment to be seen in the next 3 to 5 days. Prescriptions: Cefdinir 300 mg PO BID #14 cap Prednisone 10 mg [Deltasone 10 mg] 10 mg PO TID #12 tablet Hydrocodone/Acetaminophen [Hydrocodone-Acetamn 7.5-325/15] 10 ml PO Q8H PRN #120 ml MDD 30 ml PRN Reason: Cough
[2024-07-12 17:16] VITALS: TEMP 99
[2024-07-12] MEDS ORDERED: DUONEB 0.5-3 MG/3 ml Neb IH ONE (17:53)
[2024-07-12] MEDS: DUONEB 0.5-3 MG/3 ml Neb IH ONE (18:02)
[2024-07-12 18:05] VITALS: RESP 18
[2024-07-12 18:18] VITALS: BP 170/108; PULSE 60
[2024-07-12 18:40] LABS: INFLUENZA B NEGATIVE (NEGATIVE); RESPIRATORY SYNCTIAL VIRUS NEGATIVE (NEGATIVE); SARS-CoV-2 Xpert Express NEGATIVE (NEGATIVE)
[2024-07-12 18:42] LABS: INFLUENZA A POSITIVE (NEGATIVE)
[2024-07-12] MEDS ORDERED: Sterile H2O 10 ml IJ ONE (18:57)
[2024-07-12] MEDS ORDERED: solu-MEDROL ONE (18:57)
[2024-07-12] MEDS ORDERED: XYLOCAINE 1% HCL 20 ML MDV ONE (18:58)
[2024-07-12] MEDS ORDERED: Rocephin 1000 MG INJ ONE (18:58)
[2024-07-12] MEDS: solu-MEDROL 125 MG, Sterile H2O 10 ml 2 ML IM ONE (19:00)
[2024-07-12] MEDS: Rocephin 1000 MG INJ IM ONE (19:03)
[2024-07-12 19:08] VITALS: O2SAT 96
--- NOTE | 2024-07-12 22:58 | XRAY ---
Indication: Cough. Short of breath. Comparison: December 28, 2022 Portable chest now demonstrates subtle right base infiltrate versus atelectasis without large effusion. Stable COPD, biapical pleural thickening/scarring, and left apical masslike opacity. Heart not enlarged. Bony thorax intact again with osteopenia and degenerative changes. Interval right shoulder arthroplasty.
== END 2024-07-12 19:25 | disposition home or self-care (01) ==
LOC: ED 17:01
DX: J10.1 Influenza due to other identified influenza virus with other respiratory manifestations (principal); R50.9 Fever, unspecified; R05.1 Acute cough; I10 Essential (primary) hypertension; Z79.52 Long term (current) use of systemic steroids; Z79.891 Long term (current) use of opiate analgesic; Z79.899 Other long term (current) drug therapy; Z72.0 Tobacco use
CPT/HCPCS: 0241U; 36415; 71045; 86308; 87040; 87651; 94640; 94760; 96372; 99284; J0696; J2919; A9270-GY